=== PATIENT | female | born 1955 | race African-American/Black ===

== ENCOUNTER → 2016-08-15 15:41 | Emergency (ER) | payer OTHER ==
[~2016-08-15 15:41] MED LIST: Cephalexin CAP* 500 MG PO ONE; diPHENhydraMINE PO* 50 MG PO ONE
[2016-08-15 16:09] VITALS: BP 149/86
--- NOTE | 2016-08-15 17:57 | ED ---
Skin Complaint - HPI Summary HPI Summary: Patient suffered insect bites two nights ago while sleeping on her couch at home. She doesn't know what bit her, but she now has painful, itchy pustules on her left hand, elbow and leg. She has applied ice and hydrocortisone with minimal relief. The left hand is swollen and has increased redness. She denies fever, chills, N/V/D or streaking. She has not taken any medication. - History of Current Complaint Chief Complaint: EDRashSkinAbscess Time Seen by Provider: 08/15/16 17:37 Stated Complaint: RASH Hx Obtained From: Patient Onset/Duration: Started Days Ago - 2, Traumatic - bug bites Timing: Constant Onset Severity: Moderate Current Severity: Severe Pain Intensity: 10 Skin Location: Diffuse Aggravating Symptom(s): Touch Alleviating Symptom(s): Nothing Associated Signs & Symptoms: Tenderness Related History: Insect Bite/Sting - Allergy/Home Medications Allergies/Adverse Reactions: Allergies Allergy/AdvReac Type Severity Reaction Status Date / Time Aspirin Allergy Intermediate Bleeding Verified 08/15/16 16:05 Naproxen [From Naprosyn] Allergy Unknown Verified 08/15/16 16:05 Reaction Details PMH/Surg Hx/FS Hx/Imm Hx Endocrine/Hematology History: Reports: Hx Anemia Denies: Hx Diabetes, Hx Sickle Cell Disease Cardiovascular History: Reports: Hx Hypertension - NO MEDS Denies: Hx Congestive Heart Failure, Other Cardiovascular Problems/Disorders Respiratory History: Denies: Other Respiratory Problems/Disorders GI History: Reports: Hx Gastroesophageal Reflux Disease, Hx Ulcer, Other GI Disorders - CONSTPATION History: Reports: Hx Kidney Stones - CURRENTLY, Denies: Hx Renal Disease, Other Problems/Disorders Musculoskeletal History: Reports: Hx Arthritis - SHOULDERS, ARMS, HANDS, Hx Back Problems - pain Denies: Other Musculoskeletal History Sensory History: Denies: Hx Contacts or Glasses, Hx Hearing Aid Opthamlomology History: Denies: Hx Contacts or Glasses Neurological History: Reports: Hx Headaches, Hx Migraine Denies: Other Neuro Impairments/Disorders - Cancer History Cancer Type, Location and Year: lung - Surgical History Surgery Procedure, Year, and Place: tubal ligation, 1979, [place], RT LOBECTOMY Hx Anesthesia Reactions: No - Immunization History Date of Influenza Vaccine: Unknown Infectious Disease History: No Infectious Disease History: Denies: Traveled Outside the [place] in Last 30 Days - Family History Known Family History: Positive: None - Social History Occupation: Unemployed Lives: With Family Alcohol Use: None Substance Use Type: Reports: None Smoking Status (MU): Former Smoker Type: Cigarettes Amount Used/How Often: AT MOST Have You Smoked in the Last Year: Yes Review of Systems Positive: Edema - left hand Positive: Other - pea size pustules on left hand; quarter size erythema left lateral calf; 2cm x 2cm area of erythema right medial elbow Negative: Paresthesia, Numbness All Other Systems Reviewed And Are Negative: Yes Physical Exam Triage Information Reviewed: Yes Vital Signs On Initial Exam: Initial Vitals Temp Pulse Resp BP Pulse Ox 98.4 F 70 20 149/86 99 08/15/16 16:06 08/15/16 16:06 08/15/16 16:06 08/15/16 16:06 08/15/16 16:06 Vital Signs Reviewed: Yes Appearance: Positive: Well-Appearing, Well-Nourished, Pain Distress Skin: Positive: Warm, Skin Color Reflects Adequate Perfusion, Dry, Tender, Soft , Erythema @ - pea size pustules on left hand; quarter size erythema left lateral calf; 2cm x 2cm area of erythema right medial elbow Head/Face: Positive: Normal Head/Face Inspection Eyes: Positive: EOMI, TRINITY, Conjunctiva Clear ENT: Positive: Hearing grossly normal Respiratory/Lung Sounds: Positive: Breath Sounds Present Cardiovascular: Positive: RRR Musculoskeletal: Positive: Strength/ROM Intact, Edema Left - hand Neurological: Positive: Sensory/Motor Intact, Alert, Oriented to Person Place, Time, NV Bundle Intact Distally, Normal Gait Psychiatric: Positive: Affect/Mood Appropriate AVPU Assessment: Alert Diagnostics - Vital Signs Vital Signs Temp Pulse Resp BP Pulse Ox 08/15/16 16:06 98.4 F 70 20 149/86 99 - Laboratory Lab Statement: Any lab studies that have been ordered have been reviewed, and results considered in the medical decision making process. Course/Dx - Differential Diagnoses - Skin Complaint Differential Diagnoses: Abscess, Anaphylaxis, Angioedema, Cellulitis, Contact Dermatitis, Foreign Body, Local Allergic Reaction, MRSA, Tick Born Illness, Urticaria, Viral Exanthem, VRE - Diagnoses Provider Diagnoses: Bug bites, Cellulitis Discharge - Discharge Plan Condition: Stable Disposition: HOME Prescriptions: Cephalexin CAP* [Keflex CAP*] 500 mg PO QID #39 cap diPHENhydraMINE PO* [Benadryl PO 25 MG TAB*] 50 mg PO Q4H PRN #60 tab PRN Reason: Itching Patient Education Materials: Insect Bite or Sting (ED), Cellulitis (ED) Referrals: Subhash Monroe MD [Primary Care Provider] - Additional Instructions: Please take the antibiotics until they are completely gone. Use the benadryl as needed, and elevate you hand above your head to decrease swelling. Follow-up with your primary care provider in 2 days for re-evaluation to insure you are improving. Return to the emergency department if symptoms worsen.
== END | disposition home or self-care (01) ==
LOC: ED 15:41
DX: L03.90 Cellulitis, unspecified (principal); R21 Rash and other nonspecific skin eruption; Z87.891 Personal history of nicotine dependence; T14.8 Other injury of unspecified body region; W57.XXXA Bitten or stung by nonvenomous insect and other nonvenomous arthropods, initial encounter; Y93.9 Activity, unspecified; Y92.9 Unspecified place or not applicable; Y99.9 Unspecified external cause status
CPT/HCPCS: 87070; 87205; 99282; A9270-GY

== ENCOUNTER → 2017-02-11 12:25 | Emergency (ER) | payer OTHER ==
[2017-02-11 15:36] VITALS: BP 0/0
== END | disposition left against medical advice (07) ==
LOC: ED 12:25
DX: R10.2 Pelvic and perineal pain (principal); Z53.21 Procedure and treatment not carried out due to patient leaving prior to being seen by health care provider

== ENCOUNTER 2017-03-29 11:18 | Inpatient (IN) | payer OTHER ==
[2017-03-29 12:40] LABS: ABS Basophils 0 10^3/ul (0-0.2); ABS Eosinophils 0 10^3/ul (0-0.6); ABS Lymphocytes 1.7 10^3/ul (1.0-4.8); ABS Monocytes 0.2 10^3/ul (0-0.8); ABS Neutrophils 3.2 10^3/ul (1.5-7.7); ABS Nucleated RBC 0 10^3/ul; Eosinophil % 0.1 % (0-6); Hematocrit 34 % (35-47); Hemoglobin 11.2 g/dl (12.0-16.0); Mean Corpuscular HGB Conc 33 g/dl (31-36); Mean Corpuscular Hemoglobin 28 pg (27-31); Mean Corpuscular Volume 87 fL (80-97); Mean Platelet Volume 9 um3 (7.4-10.4); Nucleated Red Blood Cells % 0.1; Platelet Count 259 10^3/ul (150-450); Red Blood Count 3.93 10^6/ul (4.0-5.4); Red Cell Distribution Width 15 % (10.5-15); White Blood Count 5.2 10^3/ul (3.5-10.8)
[2017-03-29 12:53] LABS: EGFR Non-African American 86.5 (>60)
--- NOTE | 2017-03-29 13:06 | RAD ---
HISTORY: Chest pain COMPARISONS: December 22, 2013 VIEWS: 4: Frontal dual-energy and lateral views of the chest. FINDINGS: CARDIOMEDIASTINAL SILHOUETTE: The cardiomediastinal silhouette is stable. SEDRICK: The sedrick are normal. PLEURA: The costophrenic angles are sharp. No pleural abnormalities are noted. LUNG PARENCHYMA: The lungs are clear. ABDOMEN: The upper abdomen is clear. There is no subphrenic gas. BONES AND SOFT TISSUES: No bone or soft tissue abnormalities are noted. OTHER: None. IMPRESSION: NO ACTIVE CARDIOPULMONARY DISEASE.
[2017-03-29] MEDS ORDERED: Metoprolol Tartrate TAB* 25 MG PO ONE ×2 (13:08→14:53)
[2017-03-29] MEDS: Nitroglycerin TAB 0.4 MG* 0.4 MG TAB SL ONE ×2 (13:17→14:13)
[2017-03-29] MEDS ORDERED: Heparin DRIP 25,000 UNITS(*) 25,000 UNITS/500 ML BAG IVPB SCH (13:30)
[2017-03-29] MEDS ORDERED: NS 0.9% 500 ML* 500 ML IV ONE (13:32)
[2017-03-29] MEDS ORDERED: Iohexol 350* (CONTRAST) 500 ML MDV IV ONE (13:38)
[2017-03-29 14:00] LABS: Urine Appearance Cloudy; Urine Blood 1+ (Negative); Urine Color Yellow; Urine Ketones Trace (Negative); Urine Protein Negative (Negative); Urine Urobilinogen Negative (Negative)
[2017-03-29] MEDS ORDERED: Heparin VIAL(*) 5000 UNITS/ML VIAL (FIVE THOUSAND) IV SCH ×2 (14:00→18:00)
[2017-03-29 14:02] LABS: INR 1.06 (0.77-1.02)
--- NOTE | 2017-03-29 14:04 | RAD ---
Indication: Chest pain. Contrast: Administered 62.1 ml of OMNIPAQUE 350 mg/ml Inferior thyroid lobes are enlarged. Pulmonary arterial tree is well opacified. There are no filling defects present to suggest pulmonary embolus. The heart is enlarged without evidence of pericardial effusion. The trachea and major bronchi appear patent. The lung person demonstrate no evidence of alveolar consolidation. No mediastinal or hilar adenopathy is noted. Lung person demonstrate no pleural fluid, nodules or masses. Emphysematous changes are noted. The axilla demonstrates small lymph nodes in the axilla bilaterally. The visualized thoracic spine is otherwise unremarkable. IMPRESSION: No definite evidence of pulmonary embolus is noted. Cardiomegaly. No pericardial effusion is noted.
[2017-03-29] MEDS ORDERED: Ticagrelor* 90 MG TAB PO ONE (14:40)
[2017-03-29] MEDS ORDERED: Atorvastatin* 80 MG TAB PO ONE (14:40)
[2017-03-29] MEDS ORDERED: Aspirin Low Dose CHEW TAB* 81 MG PO ONE (14:52)
[2017-03-29] MEDS ORDERED: nitroGLYCERIN DRIP* 25,000 MCG/250 ML BTL IV SCH (15:00)
[2017-03-29] MEDS ORDERED: nitroGLYCERIN DRIP* 0 MCG/0 ML BTL ONE (15:02)
[2017-03-29] MEDS ORDERED: Ondansetron INJ* 2 MG/ML VIAL IV PRN (15:10)
[2017-03-29] MEDS ORDERED: fentaNYL* 50 MCG/ML 2 ML VIAL (100 MCG VIAL) ONE ×2 (15:21→19:48)
[2017-03-29] MEDS ORDERED: nitroGLYCERIN DRIP* 25,000 MCG/250 ML BTL ONE (15:22)
[2017-03-29] MEDS ORDERED: Lidocaine 1% INJ* 10 MG/ML 30 ML SDV ONE (15:22)
[2017-03-29] MEDS ORDERED: VERAPAMIL 2.5 MG/ML 4 ML VIAL ONE (15:22)
[2017-03-29] MEDS ORDERED: Heparin 2 UNITS/ML IVPREMIX* 3,000 ML IV ONE (15:22)
[2017-03-29] MEDS ORDERED: Heparin(*) 1000 UNIT/ML 10 ML VIAL CATH LAB IV ONE (15:22)
[2017-03-29] MEDS ORDERED: Iohexol 350 (CONTRAST) 200 ML MDV IV ONE (15:22)
[2017-03-29] MEDS ORDERED: Midazolam* 1 MG/ML 10 ML VIAL (10 MG) ONE (15:34)
[2017-03-29] MEDS ORDERED: NS 0.9% 1000 ML* 1,000 ML IV SCH (17:15)
[2017-03-29] MEDS ORDERED: HYDROcodone/ACETAMIN 5-325 MG* 1 TAB PO PRN (17:52)
[2017-03-29] MEDS ORDERED: Heparin DRIP 25,000 UNITS(*) 25,000 UNITS/500 ML BAG IV SCH (18:00)
--- NOTE | 2017-03-29 18:00 | CONSULT ---
Subjective Date of Service: 03/29/17 Interval History: 03/29/2017 date of consult and admission Service: Hospitalist/[employer] Mechanic PMD: Dr. Monroe CC: Chest pain Reason for consult: Chest pain HISTORY OF PRESENT ILLNESS: Tena Hall is a 61-year-old woman with a history of gastritis 04/2014 EGD advised not to take aspirin because of this (not an allergy), HTN does not take regular medications regularly because of constipation, migraines severe enough has caused syncope in the past, uterine fibroids, and a history of lung cancer s/p partial right lung resection. She has had intermittent chest discomfort for the last 2-3 weeks. It has been worse over the last day. She has been under a lot of stress recently regarding family discord with son and his significant other. It is right sided feels like gas/indigestion, feels similar pain to lung cancer. She doesn't walk a lot and there is no relation to exertion. No recent syncope but used to have often with migraines. Dyspnea at night recently. No edema. She was found with ACS-like syndrome and treated with appropriate treatment. She had worsening chest discomfort with dynamic EKG changes including precordial ST elevation non-diagnostic but concerning enough that an urgent coronary angiogram was recommended. Of note, there was a concern with vaginal bleeding that is intermittent. There is none currently. Dr. Dunham performed a pelvic examination and no blood was noted. PAST MEDICAL HISTORY: Significant for: 1. Hypertension. 2. Peptic ulcer disease. 3. Chronic pain. 4. Migraines. 5. Lung cancer. PAST SURGICAL HISTORY: She said she has had a partial lobectomy 2015 right lung, did not need chemotherapy or radiation. tubal ligation ALLERGIES TO MEDICATIONS: Include ASPIRIN, which causes GI upset and NAPROXEN. FAMILY HISTORY: Her mother had breast cancer. Her father had throat cancer. SOCIAL HISTORY: She was a smoker. She quit when she was diagnosed with lung cancer. She does not drink alcohol regularly. Uses marijuana recreationally.. Surrogate decision maker is her son. Medications Active Medications: Acetaminophen (Tylenol Tab*) 650 mg PO Q4H PRN PRN Reason: FEVER/PAIN Hydrocodone Bitart/Acetaminophen ([place] 5-325 Tab*) 1 tab PO TID PRN PRN Reason: PAIN Sodium Chloride (Ns 0.9% 1000 Ml*) 1,000 mls @ 100 mls/hr IV .per rate [facility] Stop: 03/29/17 23:14 Last Admin: 03/29/17 17:26 Dose: 100 mls/hr Ondansetron HCl (Zofran Inj*) 4 mg IV Q6H PRN PRN Reason: NAUSEA Pantoprazole Sodium (Protonix Tab (Nf)) 40 mg PO DAILY [facility] Home Medications: Hydrocodone-Acetaminophen [Hydrocodone/Acetaminophen 5-325 mg] 1 tab PO TID PRN 03/10/14 [History Confirmed 03/29/17] Nicotine PATCH 14 MG/24 HR* 14 mg TRANSDERM DAILY 06/03/14 [History Confirmed ] Docusate CAP* [Colace Cap*] 100 mg PO DAILY PRN 03/29/17 [History Confirmed ] Pantoprazole TAB (NF) [Protonix TAB (NF)] 40 mg PO DAILY 03/29/17 [History Confirmed 03/29/17] celeCOXIB CAP* [CeleBREX CAP*] 200 mg PO DAILY 03/29/17 [History Confirmed 03/29] hydrOXYzine HCL TAB* [Atarax 25 MG TAB*] 25 - 50 mg PO Q4HR 03/29/17 [History Confirmed 03/29/17] Review of Systems - Review of Systems Constitutional Symptoms: Positive: Weakness Negative: Weight Gain, Weight Loss Dermatology: Negative: Rash, Skin Lesions HEENT: Negative: Change in Hearing, Vertigo, Tinnitus Eyes: Negative: Change in Vision, Double Vision Thyroid: Negative: Normal, Cold Intolerance, Heat Intolerance, Palpitations, Weight Loss, Weight Gain Pulmonary: Positive: Shortness of Breath Negative: Cough, Sputum, Hemoptysis, Wheezing, Respiratory Distress, COPD, Asthma, Exercise Intolerance, Home Oxygen Cardiology: Positive: Chest Pain, Shortness of Breath Negative: Normal, Palpitations, Swelling of Ankles, Peripheral Vascular Dis, Edema, Claudication Gastroenterology: Negative: Abdominal Pain, Vomiting, Anorexia, Indigestion, Difficulty Swallowing, Heartburn, Constipation, Diarrhea, Blood in Stools, Change in Bowel Habits, Haematemesis, Melena Genital - Urinary: Negative: Dysuria, Hematuria Musculoskeletal: Negative: Joint Pain, Joint Stiffness, Arthritis, Osteoporosis, Low Back Pain , Sciatica Endocrinology: Negative: Thyroid Problems, Obesity, Diabetes, Hyperglycemia, Hypoglycemia, Polydipsia, Polyuria Hematologic/Lymphatic: Positive: Anemia Negative: Easy Brusing, Hx Leukemia, Hx Lymphoma, Use of Anticoagulant, Use of Antiplatelet Drugs Neurology: Positive: Migraines Negative: Diplopia, Dizziness, Change in Balancing, Change in Coordination, Change in Memory, Numbness\Paresthesiae, Unexplained Weakness, Hx of Stroke\TIA , Hx Seizures Psychiatry: Positive: Tearfulness, Unusual Anxiety Negative: Hypomania, Eating Disorders Allergic/Immunologic: Negative: Hx Anaphylaxis, Hx Angioedema, Hx HIV, Immunocompromise Review of Systems Statement: All other review of systems negative, unless stated above. Objective Vital Signs: Temp Pulse Resp BP Pulse Ox 97.6 F 79 20 104/79 95 03/29/17 17:12 03/29/17 17:12 03/29/17 17:12 03/29/17 17:12 03/29/17 17:12 Oxygen Devices in Use Now: None Appearance: appears mildly distressed due to pain, not toxic appearing Ears/Nose/Mouth/Throat: Clear Oropharnyx, Mucous Membranes Moist Neck: NL Appearance and Movements; NL JVP, Trachea Midline Respiratory: Symmetrical Chest Expansion and Respiratory Effort, - - no obvious rales or wheeing Cardiovascular: NL Sounds; No Murmurs; No JVD, RRR, No Edema Abdominal: NL Sounds; No Tenderness; No Distention Extremities: No Edema, No Clubbing, Cyanosis Skin: No Rash or Ulcers Neurological: Alert and Oriented x 3 Laboratory Results: INR (Anticoag Therapy) 1.06 (0.77-1.02) H 03/29/17 12:18 APTT 33.3 seconds (26.0-36.3) 03/29/17 12:18 Total Bilirubin 0.40 mg/dL (0.2-1.0) 03/29/17 12:18 AST 21 U/L (13-39) 03/29/17 12:18 ALT 8 U/L (7-52) 03/29/17 12:18 Alkaline Phosphatase 77 U/L (34-104) 03/29/17 12:18 CK-MB (CK-2) 8.7 ng/mL (0.6-6.3) H 03/29/17 12:18 B-Natriuretic Peptide 748 pg/mL (-100) H 03/29/17 12:18 Total Protein 8.5 g/dL (6.4-8.9) 03/29/17 12:18 Albumin 4.4 g/dL (3.2-5.2) 03/29/17 12:18 Globulin 4.1 g/dL (2-4) H 03/29/17 12:18 Albumin/Globulin Ratio 1.1 (1-3) 03/29/17 12:18 TSH 0.91 mcIU/mL (0.34-5.60) 03/29/17 12:18 Diagnostic Imaging: Chest, thorax CTA, impression: No definite evidence of PE noted, cardiomegaly. Coronary angiogram 03/29/2017: No obstructive CAD. Severely reduced LVEF with akinetic mid segments and apex with preservation of basal segments EKG Data: EKg 2: NSR, ST elevation < 1 mm v3-v5 with ST depression/TWI inferior leads Assessment/Plan Tena Hall is a 61 year old woman with a history of lung cancer s/p resection on right, prior tobacco use, HTN unable to tolerate medication due to constipation, migraines associated with syncope, uterine fibroids admitted with an ACS-like presentation and found with severe tako-tsubo cardiomyopathy with a severe reduced LVEF, hemodynamically stable without any arrhythmias. - Admit to ICU. [place] term prognosis of this condition is not entirely benign - Give aspirin 81 mg po daily (no true allergy) - Given heparin therapeutic gtt while inpatient to help prevent development of apical thrombus. If no vaginal bleeding after a period of time would change to therapeutic lovenox - Start metoprolol 25 mg PO QID with holding parameter SBP < 90 mmHg or pulse < 55 bpm - Start fentanyl 25 mcg IV x 1 now and then q2h PRN for severe pain (ordered) - Once tolerating above will start an AceI - Plan for echocardiogram 03/31/2017 - Should have gynecology evaluation at some point, could be as an outpatient, to exclude endometrial cancer Thank you for allowing me to participate in the cardiovascular care of this patient. Please do not hesitate to contact me with questions or concerns.
[2017-03-29] MEDS ORDERED: Potassium Chlor TAB* 20 MEQ TAB.ER PO ONE (18:07)
[2017-03-29] MEDS ORDERED: Magnesium Sulfate 2 GM IV* 2 GM/50 ML BAG IVPB ONE (18:07)
[2017-03-29] MEDS: Metoprolol Tartrate TAB* 25 MG PO SCH (18:52)
[2017-03-29 19:00] LABS: Hematocrit 33 % (35-47); Hemoglobin 10.8 g/dl (12.0-16.0)
[2017-03-29] MEDS ORDERED: fentaNYL* 50 MCG/ML 2 ML VIAL (100 MCG VIAL) IV SLOW PU ONE (19:38)
--- NOTE | 2017-03-29 21:39 | HP ---
CC: Dr. Monroe; Dr. Marquis; Dr. Erlin Ramos * HISTORY AND PHYSICAL: DATE OF ADMISSION: 03/29/17 PRIMARY CARE PROVIDER: Dr. Monroe. ATTENDING PHYSICIAN WHILE IN THE HOSPITAL: Dr. William Ramos * (report dictated by Pineda Barron NP). CONSULTING OLIVE KNOCKER: Dr. Ramos. CONSULTING BEAM DYER: Dr. Marquis. CHIEF COMPLAINT: Chest pain. HISTORY OF PRESENT ILLNESS: Mrs. Hall is a 61-year-old female patient. She has a history of hypertension, peptic ulcer disease, migraines, chronic pain and a history of lung cancer. She presented to the ED stating that over the last at least 3 weeks, she states she has been having intermittent chest discomfort and frequency and duration, which has been increasing in the last couple of days. There has been no reports of fevers, chills. No vomiting. No diarrhea. There has been no reports of abdominal discomfort. She describes the chest pain today as a pressure, squeezing, tightness. No associated nausea , shortness of breath, or diaphoresis. She states that the discomfort was coming more frequent, that was lasting longer. She was concerned and came into the ED today for this. During evaluation, it was noted that it was recorded anyway by the patient that she was having intermittent vaginal bleeding, which has been ongoing on for about at least a year. She has not told anybody about it. While in the ER and being evaluated, it was noted that her troponin was elevated. She was being evaluated by Dr. Ramos and she was continuing to have chest discomfort. Repeat EKG subsequently showed ST changes and STEMI was called. The patient was brought to the [facility]. The patient's cath report is pending, but preliminary is concerned for Takotsubo and then evaluated the patient post-cath. She states that she has been under quite a lot of duress with her family as her son and the son's significant other has been fighting and the patient has been stressed because she is not sure if she is going to be able to see her grandchild, who is a year old. When she brought this up, she became extremely tearful. There has been no reports of vaginal bleeding today. Vaginal exam was performed in the ED. There was no discharge noted. She states that the chest pain now is going away. She is feeling a little better. She denies having any abdominal pain. There has been no recent cough, fevers, chills and no recent URI type symptoms. We were asked to evaluate for admission. PAST MEDICAL HISTORY: Significant for: 1. Hypertension. 2. Peptic ulcer disease. 3. Chronic pain. 4. Migraines. 5. Lung cancer. PAST SURGICAL HISTORY: She said she has had a partial lobectomy and a tubal ligation according to the patient. MEDICATIONS: Her home meds according to the list include: 1. Atarax 20 to 50 mg every 4 hours. 2. Nicotine patch 14 mg transdermally daily. 3. Colace 100 mg daily as needed. 4. Protonix 40 mg daily. 5. Celebrex 200 mg p.o. daily. 6. Hydrocodone 1 tablet p.o. t.i.d. as needed. ALLERGIES TO MEDICATIONS: Include ASPIRIN, which causes GI upset and NAPROXEN. FAMILY HISTORY: Her mother had breast cancer. Her father had throat cancer. SOCIAL HISTORY: She was a smoker. She quit when she was diagnosed with lung cancer. She does not drink alcohol. Surrogate decision maker is her son. REVIEW OF SYSTEMS: There is no documented fever. She denied having any significant weight change. There was no double vision. She denies having any ear discharges. No rhinorrhea. No sore throat. No thyroid enlargement. There is chest pain as per my HPI. There was no orthopnea, no nocturnal dyspnea. There was no abdominal pain. No nausea, no vomiting. No dysuria, no frequency. There was no seizure, no loss of consciousness. No pruritus and no skin ulcerations. Review of 14-systems was completed, all others are negative. PHYSICAL EXAMINATION GENERAL: At this time, Mrs. Hall is a 61-year-old female patient. She is sitting in the ICU bed. She does not appear in any acute distress. VITAL SIGNS: Blood pressure 104/74, heart rate 79, respirations 20, O2 sat 95% , and temperature 97.6. HEENT: Head: Atraumatic. Eyes: EOMs intact. Sclerae anicteric and not pale. Throat: Oral mucosa appears to be moist. No oropharyngeal erythema. NECK: Supple. LUNGS: Clear to auscultation. No wheezes, rales, or rhonchi. HEART: Sounds S1, S2. Regular rate and rhythm. No murmur, rubs, or gallops. ABDOMEN: Soft, flat, and nontender. Bowel sounds present. EXTREMITIES: Pulses were 2+ throughout. Distal CSM checks are intact to the right wrist and to the right lower extremity. NEUROLOGIC: She is awake, alert and oriented x3. No gross focal deficits. SKIN: Her is intact with the exception she has a puncture site to the right wrist, which is dry and intact and also puncture site to the right groin dry and intact. DIAGNOSTIC STUDIES/LAB DATA: Labs today revealed a WBC of 5.2, RBC of 3.93, hemoglobin 11.2, hematocrit 34, platelet count of 259. INR 1.06, PTT of 33.3. Sodium was 127, potassium 3.5, chloride 103, bicarb 23, BUN 13, creatinine 0.69 , glucose 108, lactate 2, calcium 10.1, mag 1.8. Total bili 0.4, AST 21, ALT 8 , alk phos 77. CK was 133, CK-MB 8.7. Troponin 1.54. BNP is 748. TSH normal. Her albumin was 4.4. Urine showed trace ketones, 1+ blood. She had multiple imaging here in the ED starting out with a chest x-ray, impression: No active cardiopulmonary disease. Chest, thorax CTA, impression: No definite evidence of PE noted, cardiomegaly. No pericardial effusion is noted. EKG, initially her EKG shows sinus tachycardia, rate of 101. She had flattened T- waves in V4 and V5 with no ST elevation noted at that point. Her repeat EKG showed ST elevation in V4 and V5 along with inversions in V4 and V3, ST elevation was noted in V5 and V6 inversions along with inversions in lead II and III. STEMI was called at that point and taken to the [facility]. We will refer you to report from Dr. Marquis and Dr. Ramos and the cath report for details on that. Old medical records were reviewed. ASSESSMENT AND PLAN: Mrs. Hall is a 61-year-old female patient coming into the ED with complaints of chest pain. Initially, we were asked to evaluate for non-ST elevation myocardial infarction; however, it turned into possible ST elevation myocardial infarction. She was taken to the [facility] and was found to have what appeared to be Takotsubo's cardiomyopathy. She will be admitted under inpatient status for: 1. Chest pain, probably secondary to the Takotsubo's cardiomyopathy. Cardiology is following. The plan would be for heparin drip, aspirin, and beta- omar. 2. Takotsubo's cardiomyopathy. Echo is pending. Dr. Ramos is going to be following. He recommended heparin drip. I did note that she has been having issues with vaginal bleeding; however, she does have significant cardiomyopathy and she has placed at a risk for thromboembolism. So, at this point, I think heparin is safe because we would not want her to have stroke or any thromboembolism, which could be devastating. At this point, we will do heparin. If she starts having vaginal bleeding, then obviously we will hold this and reverse it. The patient is going to undergo formal echo on Saturday. We will continue with beta-omar with hold parameters and we will continue with the patient's aspirin. 3. Vaginal bleeding. Transvaginal ultrasound has been asked for and [facility] SUPPORT SPECIALIST has been consulted. We will follow the H and H closely. 4. Hypertension. We will continue again beta-omar. 5. Peptic ulcer disease. Continue current medical regimen. 6. History of migraines. P.r.n. Tylenol as available. 7. Chronic pain. We will continue her meds as prescribed. 8. History of lung cancer. We are going to get records from [facility], as she apparently had a partial lobectomy. According to the patient, we will get [facility] records. 7. DVT prophylaxis. Heparin drip. 8. Code status. She is full code. 9. Fluids, electrolytes, and nutrition. She can have a heart healthy diet. TIME SPENT: On admission 60 minutes, greater than half of the time was spent face- to-face with the patient obtaining my history and physical, other half of the time spent going over the plan of care with the patient and implementing plan of care. I did discuss the plan of care with my attending, Dr. William Ramos, who is in agreement. PINEDA BARRON, MARY [id number]/[facility] #: [id number] KARLA
[2017-03-29 21:57] LABS: Hematocrit 34 % (35-47)
[2017-03-29] MEDS: Captopril TAB* 12.5 MG PO SCH (22:00)
[2017-03-29] MEDS: fentaNYL* 50 MCG/ML 2 ML VIAL (100 MCG VIAL) IV SLOW PU PRN (22:01)
[2017-03-30] MEDS: Metoprolol Tartrate TAB* 25 MG PO SCH ×2 (00:30→06:33)
[2017-03-30] MEDS: fentaNYL* 50 MCG/ML 2 ML VIAL (100 MCG VIAL) IV SLOW PU PRN (00:31)
[2017-03-30 02:18] LABS: Hematocrit 35 % (35-47); Hemoglobin 10.9 g/dl (12.0-16.0)
[2017-03-30] MEDS: HYDROcodone/ACETAMIN 5-325 MG* 1 TAB PO PRN (03:53)
[2017-03-30 07:04] LABS: ABS Basophils 0.1 10^3/ul (0-0.2); ABS Eosinophils 0 10^3/ul (0-0.6); ABS Lymphocytes 2.5 10^3/ul (1.0-4.8); ABS Monocytes 0.4 10^3/ul (0-0.8); ABS Neutrophils 2.8 10^3/ul (1.5-7.7); ABS Nucleated RBC 0 10^3/ul; Eosinophil % 0.5 % (0-6); Hematocrit 32 % (35-47); Hemoglobin 10.6 g/dl (12.0-16.0); Lymphocyte % 42.1 % (25-47); Mean Corpuscular HGB Conc 33 g/dl (31-36); Mean Corpuscular Hemoglobin 28 pg (27-31); Mean Corpuscular Volume 87 fL (80-97); Mean Platelet Volume 9 um3 (7.4-10.4); Nucleated Red Blood Cells % 0.1; Platelet Count 238 10^3/ul (150-450); Red Blood Count 3.72 10^6/ul (4.0-5.4); Red Cell Distribution Width 15 % (10.5-15); White Blood Count 5.8 10^3/ul (3.5-10.8)
[2017-03-30 07:16] LABS: EGFR Non-African American 94.3 (>60)
[2017-03-30] MEDS: Omeprazole CAP* 20 MG PO SCH (08:54)
[2017-03-30] MEDS: Captopril TAB* 12.5 MG PO SCH (08:54)
[2017-03-30] MEDS ORDERED: Aspirin Low Dose CHEW TAB* 81 MG PO SCH (09:00)
--- NOTE | 2017-03-30 10:27 | ED ---
Vandana John Gabriel, scribed for Yamil Dunham MD on 03/29/17 at 1239 . HPI Chest Pain - HPI Summary HPI Summary: This patient is a 61 year old F BIBA to [facility] with a chief complaint of CP that she has had for several days that was worse this morning. The patient rates the pain 7/10 in severity and located on the right side. Patient reports cough, SOB, and vaginal bleeding. Patient denies rhinorrhea. Patient just recently recovered from a cold. Hx of right sided lung cancer and is a former smoker. - History of Current Complaint Chief Complaint: EDChestPainROMI Time Seen by Provider: 03/29/17 12:08 Hx Obtained From: Patient Onset/Duration: Still Present Timing: Constant Initial Severity: Mild Current Severity: Moderate Pain Intensity: 7 Pain Scale Used: 0-10 Numeric Chest Pain Radiates: No Associated Signs and Symptoms: Positive: Chest Pain, Shortness of Breath, Cough , Other: - vaginal bleeding - Allergy/Home Medications Allergies/Adverse Reactions: Allergies Allergy/AdvReac Type Severity Reaction Status Date / Time Aspirin Allergy Intermediate Bleeding Verified 08/15/16 16:05 Naproxen [From Naprosyn] Allergy Unknown Verified 08/15/16 16:05 Reaction Details Home Medications: Home Medications Docusate CAP* [Colace Cap*] 100 mg PO DAILY PRN 03/29/17 [History Confirmed ] Pantoprazole TAB (NF) [Protonix TAB (NF)] 40 mg PO DAILY 03/29/17 [History Confirmed 03/29/17] celeCOXIB CAP* [CeleBREX CAP*] 200 mg PO DAILY 03/29/17 [History Confirmed 03/29] hydrOXYzine HCL TAB* [Atarax 25 MG TAB*] 25 - 50 mg PO Q4HR 03/29/17 [History Confirmed 03/29/17] PMH/Surg Hx/FS Hx/Imm Hx Endocrine/Hematology History: Reports: Hx Anemia Denies: Hx Diabetes, Hx Sickle Cell Disease Cardiovascular History: Reports: Hx Hypertension - NO MEDS Denies: Hx Congestive Heart Failure, Other Cardiovascular Problems/Disorders Respiratory History: Reports: Hx Lung Cancer Denies: Other Respiratory Problems/Disorders GI History: Reports: Hx Gastroesophageal Reflux Disease, Hx Ulcer, Other GI Disorders - CONSTPATION History: Reports: Hx Kidney Stones - CURRENTLY, Denies: Hx Renal Disease, Other Problems/Disorders Musculoskeletal History: Reports: Hx Arthritis - SHOULDERS, ARMS, HANDS, Hx Back Problems - pain Denies: Other Musculoskeletal History Sensory History: Denies: Hx Contacts or Glasses, Hx Hearing Aid Opthamlomology History: Denies: Hx Contacts or Glasses Neurological History: Reports: Hx Headaches, Hx Migraine Denies: Other Neuro Impairments/Disorders - Cancer History Cancer Type, Location and Year: lung - Surgical History Surgery Procedure, Year, and Place: tubal ligation, 1979, [place], RT LOBECTOMY Hx Anesthesia Reactions: No - Immunization History Date of Influenza Vaccine: Unknown Infectious Disease History: No Infectious Disease History: Denies: Traveled Outside the [place] in Last 30 Days - Family History Known Family History: Negative: Renal Disease, Respiratory Disease, Seizure Disorder, Blood Disorder - Social History Alcohol Use: None Substance Use Type: Reports: None Smoking Status (MU): Former Smoker Type: Cigarettes Amount Used/How Often: AT MOST Have You Smoked in the Last Year: Yes Review of Systems Negative: Nasal Discharge Positive: Chest Pain Positive: Shortness Of Breath, Cough Positive: other - vaginal bleeding All Other Systems Reviewed And Are Negative: Yes Physical Exam - Summary Physical Exam Summary: VITAL SIGNS: Reviewed. GENERAL: Patient is an elderly female who is lying comfortable in the stretcher. Patient is not in any acute respiratory distress. HEAD AND FACE: No signs of trauma. No ecchymosis, hematomas or skull depressions. No sinus tenderness. EYES: PERRLA, EOMI x 2, No injected conjunctiva, no nystagmus. EARS: Hearing grossly intact. Ear canals and tympanic membranes are within normal limits. MOUTH: Oropharynx within normal limits. NECK: Supple, trachea is midline, no adenopathy, no JVD, no carotid bruit, no c- spine tenderness, neck with full ROM. CHEST: Symmetric, no tenderness at palpation LUNGS: some crackles in the base of the lungs CVS: Regular rate and rhythm, S1 and S2 present, no murmurs or gallops appreciated. ABDOMEN: Soft, non-tender. No signs of distention. No rebound no guarding, and no masses palpated. Bowel sounds are normal. EXTREMITIES: FROM in all major joints, no edema, no cyanosis or clubbing. NEURO: Alert and oriented x 3. No acute neurological deficits. Speech is normal and follows commands. SKIN: Dry and warm Pelvic: no remnants of any blood and no vaginal bleeding, normal external genitalia. Triage Information Reviewed: Yes Vital Signs On Initial Exam: Initial Vitals Temp Pulse Resp BP Pulse Ox 98.3 F 88 20 121/85 96 03/29/17 11:40 03/29/17 11:40 03/29/17 11:40 03/29/17 11:40 03/29/17 11:40 Vital Signs Reviewed: Yes Diagnostics - Vital Signs Vital Signs Temp Pulse Resp BP Pulse Ox 03/29/17 12:21 88 22 97 03/29/17 11:40 98.3 F 88 20 121/85 96 - Laboratory Lab Results: Lab Results 03/29/17 03/29/17 03/29/17 Range/Units 12:18 12:18 12:18 WBC 5.2 (3.5-10.8) 10^3/ul RBC 3.93 L (4.0-5.4) 10^6/ul Hgb 11.2 L (12.0-16.0) g/dl Hct 34 L (35-47) % MCV 87 (80-97) fL MCH 28 (27-31) pg MCHC 33 (31-36) g/dl RDW 15 (10.5-15) % Plt Count 259 (150-450) 10^3/ul MPV 9 (7.4-10.4) um3 Neut % (Auto) 61.9 (38-83) % Lymph % (Auto) 33.0 (25-47) % Becker % (Auto) 4.5 (1-9) % Eos % (Auto) 0.1 (0-6) % Baso % (Auto) 0.5 (0-2) % Absolute Neuts (auto) 3.2 (1.5-7.7) 10^3/ul Absolute Lymphs (auto) 1.7 (1.0-4.8) 10^3/ul Absolute Monos (auto) 0.2 (0-0.8) 10^3/ul Absolute Eos (auto) 0 (0-0.6) 10^3/ul Absolute Basos (auto) 0 (0-0.2) 10^3/ul Absolute Nucleated RBC 0 10^3/ul Nucleated RBC % 0.1 INR (Anticoag Therapy) (0.77-1.02) APTT (26.0-36.3) seconds Sodium 137 (133-145) mmol/L Potassium 3.5 (3.5-5.0) mmol/L Chloride 103 (101-111) mmol/L Carbon Dioxide 23 (22-32) mmol/L Anion Gap 11 (2-11) mmol/L BUN 13 (6-24) mg/dL Creatinine 0.69 (0.51-0.95) mg/dL Est GFR ( Amer) 111.2 (>60) Est GFR (Non-Af Amer) 86.5 (>60) BUN/Creatinine Ratio 18.8 (8-20) Glucose 108 H (70-100) mg/dL Lactic Acid (0.5-2.0) mmol/L Calcium 10.1 (8.6-10.3) mg/dL Magnesium 1.8 L (1.9-2.7) mg/dL Total Bilirubin 0.40 (0.2-1.0) mg/dL AST 21 (13-39) U/L ALT 8 (7-52) U/L Alkaline Phosphatase 77 (34-104) U/L Total Creatine Kinase 133 (10-223) U/L CK-MB (CK-2) 8.7 H (0.6-6.3) ng/mL Troponin I 1.54 H* (<0.04) ng/mL B-Natriuretic Peptide 748 H ( - 100) pg/mL Total Protein 8.5 (6.4-8.9) g/dL Albumin 4.4 (3.2-5.2) g/dL Globulin 4.1 H (2-4) g/dL Albumin/Globulin Ratio 1.1 (1-3) TSH 0.91 (0.34-5.60) mcIU/mL Urine Color Urine Appearance Urine pH (5-9) Ur Specific Rock (1.010-1.030) Urine Protein (Negative) Urine Ketones (Negative) Urine Blood (Negative) Urine Nitrate (Negative) Urine Bilirubin (Negative) Urine Urobilinogen (Negative) Ur Leukocyte Esterase (Negative) Urine WBC (Auto) (Absent) Urine RBC (Auto) (Absent) Ur Squamous Epith Cells (Absent) Urine Bacteria (Absent) Urine Glucose (Negative) 03/29/17 03/29/1718 Range/Units 12:18 12:18 13:27 WBC (3.5-10.8) 10^3/ul RBC (4.0-5.4) 10^6/ul Hgb (12.0-16.0) g/dl Hct (35-47) % MCV (80-97) fL MCH (27-31) pg MCHC (31-36) g/dl RDW (10.5-15) % Plt Count (150-450) 10^3/ul MPV (7.4-10.4) um3 Neut % (Auto) (38-83) % Lymph % (Auto) (25-47) % Becker % (Auto) (1-9) % Eos % (Auto) (0-6) % Baso % (Auto) (0-2) % Absolute Neuts (auto) (1.5-7.7) 10^3/ul Absolute Lymphs (auto) (1.0-4.8) 10^3/ul Absolute Monos (auto) (0-0.8) 10^3/ul Absolute Eos (auto) (0-0.6) 10^3/ul Absolute Basos (auto) (0-0.2) 10^3/ul Absolute Nucleated RBC 10^3/ul Nucleated RBC % INR (Anticoag Therapy) 1.06 H (0.77-1.02) APTT 33.3 (26.0-36.3) seconds Sodium (133-145) mmol/L Potassium (3.5-5.0) mmol/L Chloride (101-111) mmol/L Carbon Dioxide (22-32) mmol/L Anion Gap (2-11) mmol/L BUN (6-24) mg/dL Creatinine (0.51-0.95) mg/dL Est GFR ( Amer) (>60) Est GFR (Non-Af Amer) (>60) BUN/Creatinine Ratio (8-20) Glucose (70-100) mg/dL Lactic Acid 2.0 (0.5-2.0) mmol/L Calcium (8.6-10.3) mg/dL Magnesium (1.9-2.7) mg/dL Total Bilirubin (0.2-1.0) mg/dL AST (13-39) U/L ALT (7-52) U/L Alkaline Phosphatase (34-104) U/L Total Creatine Kinase (10-223) U/L CK-MB (CK-2) (0.6-6.3) ng/mL Troponin I (<0.04) ng/mL B-Natriuretic Peptide ( - 100) pg/mL Total Protein (6.4-8.9) g/dL Albumin (3.2-5.2) g/dL Globulin (2-4) g/dL Albumin/Globulin Ratio (1-3) TSH (0.34-5.60) mcIU/mL Urine Color Yellow Urine Appearance Cloudy Urine pH 6.0 (5-9) Ur Specific Rock 1.010 (1.010-1.030) Urine Protein Negative (Negative) Urine Ketones Trace H (Negative) Urine Blood 1+ H (Negative) Urine Nitrate Negative (Negative) Urine Bilirubin Negative (Negative) Urine Urobilinogen Negative (Negative) Ur Leukocyte Esterase Negative (Negative) Urine WBC (Auto) Absent (Absent) Urine RBC (Auto) Trace(0-2/hpf) (Absent) Ur Squamous Epith Cells Present H (Absent) Urine Bacteria Absent (Absent) Urine Glucose Negative (Negative) Result Diagrams: 03/29/17 12:18 03/29/17 12:18 Lab Statement: Any lab studies that have been ordered have been reviewed, and results considered in the medical decision making process. - Radiology CXR Radiology Interpretation Completed By: Radiologist - NO ACTIVE CARDIOPULMONARY DISEASE. ED physician has reviewed this radiology report. - CT CTA Chest/Thorax CT Interpretation Completed By: Radiologist - No definite evidence of pulmonary embolus is noted. Cardiomegaly. No pericardial effusion is noted. Dr. Dunham has reviewed this report. - EKG 11:23 Cardiac Rate: Tachycardia EKG Rhythm: Sinus Tachycardia - at 101 BPM EKG Interpretation: no ST elevations Re-Evaluation - Re-Evaluation First Eval Re-Evaluation Time: 13:33 Change: Improved Comment: Patient condition has improved Chest Pain Course/Dx - Course Assessment/Plan: This patient is a 61 year old F BIBA to [facility] with a chief complaint of CP that she has had for several days that was worse this morning. The patient rates the pain 7/10 in severity and located on the right side. Patient reports cough, SOB, and vaginal bleeding. Patient denies rhinorrhea. Patient just recently recovered from a cold. Hx of right sided lung cancer and is a former smoker. Test results show slight anemia, glucose of 108, CKMB of 8.7, BNP of 748, troponin of 1.54. UA is negative for UTI. CXR reveals, NO ACTIVE CARDIOPULMONARY DISEASE. An EKG reveals no STEMI, however the patient reports CP and therefore she was given NTH and beta omar. She reported ASA allergy and states she gets hives. Therefore I hailed the ASA. Because of the increased troponin I discussed case with Dr. Ramos, cardiology and he recommended heparin bolus and drip as well as to get a CTA of her chest. Additionally he recommends to place the patient on Lipitor 80 mg and Brilinta 180mg, if the patient doesnt have an active vaginal bleeding. I performed a vaginal exam and there was no vaginal bleeding, therefore the patient was given both medications, I discussed the case with Dr. Ramos from ICU for admission and he requested talking to hospitalist since patient is stable. I discussed with Dr. Gallo and she declines admission since the patient has vaginal bleeding. Chest CT is negative for a PE therefore it seems the increased troponin is from acute coronary syndrome. Dr. Ramos from ICU accepts the patient for admission and Dr. Ramos, cardiology came and assessed the patient. During this she began having more CP therefore we ordered another EKG that showed a slight ST elevation in v4 and v5, compared the EKG done earlier that day. Dr Ramos requesting calling a STEMI. At his point Dr. Marquis came into the ED and brought the patient to the cytology laboratory manager. At this point the patient is hemodynamically stable and alert and oriented x3. STEMI called at 15:10 - Chest Pain Differential Diagnosis/HQI/PQRI: Acute NH, ACS, Angina, CHF, Chest Wall, GI Disease, Lower Respiratory Infection, Pulmonary Edema, Pulmonary Embolism - Diagnoses Provider Diagnoses: ST elevation NH (STEMI) During the Visit The Following Alert/Code Occurred: STEMI - Provider Notifications Discussed Care Of Patient With: William Ramos Time Discussed With Above Provider: 13:13 Instructed by Provider To: Other - We discussed patient care with Dr. Ramos and they recommend starting heparin and to get a chest CT - Critical Care Time Critical Care Time: 75-104 min Discharge - Discharge Plan Condition: Fair Disposition: ADMITTED TO [facility] Consult Consult: 14:21We discussed patient care with Dr. Ramos, provider education specialist and they recommended he requests to speak with the hospitalist due his over whelming amount of patients he currently has. 14:27 We discussed patient care with Dr. Gallo and reported the patient is high risk and she cannot accept them because the a rocket engine mechanic will not stent a patient who has vaginal bleeding despite that we have REPRODUCER bleeding. 14:38 We discussed patient care with Dr. Ramos, provider education specialist and he has accepted the patient for admission. 14:47 Dr. Ramos, rocket engine mechanic is currently bedside accessing the patient. During this the patient developed CP so we ordered a second EKG. This EKG showed a slight ST elevation in V4-V5 and he called Dr. Marquis and they requested to call a STEMI alert and now the patient will be sent to cytology laboratory manager. The documentation as recorded by the Vandana matos Gabriel accurately reflects the service I personally performed and the decisions made by , Yamil Dunham MD.
--- NOTE | 2017-03-30 10:59 | PN ---
Subjective Date of Service: 03/30/17 Interval History: f/u tako-tsubo cardiomyopathy no chest pain now unless coughs cough may be worse than baseline but has every morning No arrhythmias several dropped beats overnight wenkebach physiology Medications Active Medications: Acetaminophen (Tylenol Tab*) 650 mg PO Q4H PRN PRN Reason: FEVER/PAIN Hydrocodone Bitart/Acetaminophen ([place] 5-325 Tab*) 1 tab PO TID PRN PRN Reason: PAIN SCALE 1-5 Last Admin: 03/30/17 03:53 Dose: 1 tab Aspirin (Aspirin Low Dose Tab*) 81 mg PO DAILY [facility] Last Admin: 03/30/17 09:25 Dose: 81 mg Captopril (Capoten Tab*) 6.25 mg PO TID [facility] Last Admin: 03/30/17 08:54 Dose: 6.25 mg Fentanyl Citrate (Fentanyl*) 25 mcg IV SLOW PU Q2H PRN PRN Reason: PAIN SCALE 6-10 Last Admin: 03/30/17 00:31 Dose: 25 mcg Heparin Sodium (Porcine) (Heparin Vial(*)) 0 units IV .PER PROTOCOL [facility] PRN Reason: Protocol Heparin Sodium/Dextrose (Heparin Drip 25,000 Units(*)) 25,000 units in 500 mls @ 0 mls/hr IV .NO INITIAL BOLUS [facility]; As Directed PRN Reason: Protocol Last Admin: 03/29/17 22:23 Dose: 18 mls/hr Metoprolol Tartrate (Lopressor Tab*) 25 mg PO Q6H [facility] Last Admin: 03/30/17 06:33 Dose: 25 mg Omeprazole (Prilosec Cap*) 20 mg PO DAILY [facility] Last Admin: 03/30/17 08:54 Dose: 20 mg Objective Vital Signs: Temp Pulse Resp BP Pulse Ox 100.9 F 60 16 149/74 95 03/30/17 07:42 03/30/17 10:45 03/30/17 10:45 03/30/17 10:45 03/30/17 10:45 Oxygen Devices in Use Now: None Appearance: appears mildly distressed due to pain, not toxic appearing Ears/Nose/Mouth/Throat: Clear Oropharnyx, Mucous Membranes Moist Neck: NL Appearance and Movements; NL JVP, Trachea Midline Respiratory: Symmetrical Chest Expansion and Respiratory Effort, - - no obvious rales or wheeing Cardiovascular: NL Sounds; No Murmurs; No JVD, RRR, No Edema Abdominal: NL Sounds; No Tenderness; No Distention Extremities: No Edema, No Clubbing, Cyanosis, - - right wrist c/d/i no pain, right groin c/d/i no swelling or signifcant pain Skin: No Rash or Ulcers Neurological: Alert and Oriented x 3 Laboratory Results: 03/30/17 06:47 03/30/17 06:47 INR (Anticoag Therapy) 1.06 (0.77-1.02) H 03/29/17 12:18 APTT 70.6 seconds (26.0-36.3) H 03/30/17 06:47 Total Bilirubin 0.40 mg/dL (0.2-1.0) 03/29/17 12:18 AST 21 U/L (13-39) 03/29/17 12:18 ALT 8 U/L (7-52) 03/29/17 12:18 Alkaline Phosphatase 77 U/L (34-104) 03/29/17 12:18 CK-MB (CK-2) 8.7 ng/mL (0.6-6.3) H 03/29/17 12:18 B-Natriuretic Peptide 748 pg/mL (-100) H 03/29/17 12:18 Total Protein 8.5 g/dL (6.4-8.9) 03/29/17 12:18 Albumin 4.4 g/dL (3.2-5.2) 03/29/17 12:18 Globulin 4.1 g/dL (2-4) H 03/29/17 12:18 Albumin/Globulin Ratio 1.1 (1-3) 03/29/17 12:18 TSH 0.91 mcIU/mL (0.34-5.60) 03/29/17 12:18 03/29/17 03/30/17 03/30/17 18:30 01:43 06:47 Troponin I 1.83 H* 1.18 H* 0.95 H* Diagnostic Imaging: Chest, thorax CTA, impression: No definite evidence of PE noted, cardiomegaly. Coronary angiogram 03/29/2017: No obstructive CAD. Severely reduced LVEF with akinetic mid segments and apex with preservation of basal segments EKG Data: EKg 2: NSR, ST elevation < 1 mm v3-v5 with ST depression/TWI inferior leads EKG today: NSR, precordial and inferior deep symmetric TWI, prolonged QT Assessment/Plan Tena Hall is a 61 year old woman with a history of lung cancer s/p resection on right, prior tobacco use, HTN unable to tolerate medication due to constipation, migraines associated with syncope, uterine fibroids, intermittent vaginal bleeding admitted with an ACS-like presentation and found with severe tako-tsubo cardiomyopathy with a severe reduced LVEF, hemodynamically stable without any arrhythmias. - If remains stable can transfer to telemetry tomorrow 03/31/2017 - Continue aspirin 81 mg po daily (no true allergy) - Continue heparin therapeutic gtt while inpatient to help prevent development of apical thrombus. If no vaginal bleeding after a period of time would change to therapeutic lovenox - Stop metoprolol 25 mg PO QID and start toprol 25 mg po bid (ordered) with parameter SBP < 90 mmHg or pulse < 55 bpm - Stop AceI in case contributing to cough (unlikely) and start losartan 25 mg po bid (ordered) - Continue fentanyl PRN - Plan for echocardiogram tomorrow Thank you for allowing me to participate in the cardiovascular care of this patient. Please do not hesitate to contact me with questions or concerns.
[2017-03-30] MEDS: Losartan TAB* 25 MG PO SCH ×2 (12:04→21:06)
[2017-03-30] MEDS: Metoprolol Succinate XL TAB* 25 MG PO SCH ×2 (12:04→21:06)
--- NOTE | 2017-03-30 13:58 | PN ---
Critical Care Services: Patient has done well overnight, and is up in a chair this AM and breathing comfortably. Is on a heparin drip, and there have been no abnormal bleeding episodes. Vital Signs: Temp Pulse Resp BP SpO2 FiO2 98.4 F 60 17 133/97 98 Physical Exam: Gen:As mentioned. HEENT:No JVD Lungs: Clear Cardiac: No murmurs or rubs Extremities: No cyanosis or edema. Fluid Balance (Past 24 Hours): 03/30/17 06:59 Intake Total 854 Output Total 200 Balance 654 Weight 161 lb Intake: IV Fluids 600 NS (0.9%) 600 IVPB 54 NS (0.9%) 54 Oral 200 Output: Urine 200 Labs: 03/30/17 03/30/17 03/30/17 01:43 01:43 06:47 WBC 5.8 Hgb 10.9 L 10.6 L Hct 35 32 L Plt Count 238 Troponin I 1.18 H* 03/30/17 03/30/17 06:47 06:47 APTT 70.6 H Sodium 135 Potassium 3.8 Chloride 106 Carbon Dioxide 20 L Anion Gap 9 BUN 13 Creatinine 0.64 Glucose 81 Calcium 9.2 Troponin I 0.95 H* Studies: None today Nutrition: Oral diet Impression: Clinically stable. Plan: Switch from unfractionated heparin to [id number] heparin (to prevent apical thrombus). Has been started on beta-omar Rx.
[2017-03-30] MEDS: Enoxaparin(*) 80 MG/0.8 ML SYR SUBCUT SCH (15:36)
--- NOTE | 2017-03-31 01:18 | CATH ---
CC: Erlin Ramos DO CATH REPORT: DATE OF PROCEDURE: 03/29/17 PROCEDURES: 1. Right radial artery access, abandoned due to inadequate torque control. 2. Right common femoral artery access, bilateral selective coronary cineangiography. 3. Left heart catheterization. 4. Left ventriculography. HISTORY: A 61-year-old woman presenting with chest pain, precordial ST elevation, undergoing emergen t catheterization for suspected ST elevation infarct. PROCEDURE ACCESS: Right radial artery, sheath 6F slender with ultrasound guidance. The ascending aor ta was reached with some difficulty because of extensive right subclavian artery tortuosity, there wa s absolutely no torque control of the TIG catheter once it was in the ascending aorta. Radial approa ch was therefore abandoned, the right radial artery was treated with a hemostatic band. Right common femoral artery access. Sheath 6F. MEDICATIONS: 1. Subcu lidocaine. 2. IV Versed. 3. IV fentanyl. 4. Radial artery cocktail: Verapamil 3 mg, nitroglycerin 300 mcg, 200 mcg intraarterial nitroglycer in for radial artery spasm. DIAGNOSTIC CATHETERS: 5F TIG4, 6FL 3.5, 6FR4, 6F pigtail. HEMODYNAMICS: Initial BP 128/72, LV 119/13-25, no aortic valve gradient on pullback. ANGIOGRAPHY: Right common femoral artery: Sheath entry is in segment 2. There is no stenosis. Left main: The left main has very minimal distal taper, no significant stenosis. LAD: The LAD has moderate proximal calcification, it extends to the apex, it has somewhat slow flow, it supplies a moderate diagonal, the LAD has some scattered luminal irregularity, but no significant stenosis. Circumflex: The circumflex is moderate, retroflexed, with a large first marginal, ends with a small right posterolateral, the circumflex has luminal irregularity, but no significant stenosis. RCA: The RCA is large, dominant with a moderate PDA followed by a smaller posterolateral, the RCA nunez s no significant stenosis. LV gram: There is preserved contraction of the anterior and inferior base. The remainder of the kimberly tricle is akinetic with very localized apical hypokinesis. Estimated LVEF 25%. Angiographic appearan ce consistent with Takotsubo cardiomyopathy. CONCLUSION: 1. No obstructive coronary artery disease. 2. Normal left-sided hemodynamics aside from elevated LVDP. 3. Severe LV systolic dysfunction consistent with Takotsubo cardiomyopathy. 4. Successful right radial artery access abandoned because of the absent torque control. 5. Successful right common femoral artery access with Angio-Seal closure. [id number]/[facility] #: [id number]
[2017-03-31] MEDS: Enoxaparin(*) 80 MG/0.8 ML SYR SUBCUT SCH ×2 (02:08→13:52)
[2017-03-31 05:17] LABS: Hematocrit 31 % (35-47); Hemoglobin 10.1 g/dl (12.0-16.0); Mean Corpuscular HGB Conc 32 g/dl (31-36); Mean Corpuscular Hemoglobin 28 pg (27-31); Mean Corpuscular Volume 88 fL (80-97); Mean Platelet Volume 9 um3 (7.4-10.4); Platelet Count 203 10^3/ul (150-450); Red Blood Count 3.57 10^6/ul (4.0-5.4); Red Cell Distribution Width 15 % (10.5-15); White Blood Count 4.6 10^3/ul (3.5-10.8)
[2017-03-31] MEDS: Omeprazole CAP* 20 MG PO SCH (08:52)
[2017-03-31] MEDS: Metoprolol Succinate XL TAB* 25 MG PO SCH ×2 (08:53→21:09)
[2017-03-31] MEDS: Losartan TAB* 25 MG PO SCH ×2 (08:53→21:09)
[2017-03-31] MEDS: Acetaminophen TAB* 325 MG PO PRN (10:01)
--- NOTE | 2017-03-31 10:20 | PN ---
Critical Care Services: Another uneventful evening - this AM is upin a chair eating breakfast - complains dull right parasternal pain (nonpleuritic) withut SOB. Is on LMW heparin to prevent apical thrombi. Vital Signs: Temp Pulse Resp BP SpO2 FiO2 99.8 F 62 20 114/61 100 Physical Exam: Gen:Alert, oriented, appears comfortable Lungs:Chest wall nontender. Lungs clear. No rubs. Cardiac: Reg rhythm Extremities:No cyanosis or edema Fluid Balance (Past 24 Hours): 03/31/17 06:59 Intake Total 703 Output Total 300 Balance +403 Weight 161 lb Intake: IV Fluids 133 Heparin 133 NS (0.9%) IVPB NS (0.9%) Oral 570 Output: Urine 300 Other: # Voids 1 Labs: 03/31/17 04:46 WBC 4.6 RBC 3.57 L Hgb 10.1 L Hct 31 L MCV 88 MCH 28 MCHC 32 RDW 15 Plt Count 203 MPV 9 Studies: Repeat cardiac ECHO today - results pending. (Last EF was 25%) Nutrition: Oral diet Impression: Clinically stable. No evidence of CHF clinically. Chest pain this AM seems nonspecific. Plan: Continue LMWH heparin for now (should be d/cd prior to discharge). Transfer out of ICU today. Further management per cardiology service.
--- NOTE | 2017-03-31 10:23 | ECHO ---
Patient: ALIRIO CONWAY [facility] Rec#: [id number] : 1955 Date: 03/31/2017 Age: 61y Height: 157.48 cm / 62.0 in Weight: 65.77 kg / 145.0 lbs Sex: F BSA: 1.67 Admit Date#: 03/29/2017 Referring: rElin Ramos DO Reading: Erlin Ramos DO Dry Dip Worker: Cherelle Garza RDCS CC: Subhash Monroe MD Transthoracic Echocardiogram Findings History: CP,migraines,HTN,lung cancer s/p partial lobestomy on the right, former smoker, Takotsubo on recent cath. Technical Comments: The study is technically limited due to the patient's smoking history. Completed at 0921. Left Ventricle: The left ventricular chamber size is normal. Mild concentric left ventricular hypertrophy is observed. There is mild to moderately decreased left ventricular systolic function. at 40%. There is high normal function of the basal segments, mild hypokinesis of mid segments and moderate hypokinesis of apical segments and apex Abnormal left ventricular diastolic function is observed. Left Atrium: The left atrium is mild to moderately dilated. , more consistent with moderately dilated. Right Ventricle: The right ventricular cavity size is normal. The right ventricular global systolic function is mildly reduced. Right Atrium: The right atrial cavity size is normal. Aortic Valve: The aortic valve structure is not well visualized. There is a trace of aortic regurgitation. There is no evidence of aortic stenosis.by doppler evaluation Mitral Valve: The mitral valve leaflets are mildly thickened. There is mild mitral regurgitation. There is no evidence of mitral stenosis. Tricuspid Valve: The tricuspid valve leaflets are normal. There is mild to moderate tricuspid regurgitation. There is evidence of mild pulmonary hypertension. There is no tricuspid stenosis. Pulmonic Valve: The pulmonic valve appears normal. There is a trace pulmonic regurgitation. There is no pulmonic stenosis. Pericardium: There is no significant pericardial effusion. Aorta: There is no dilatation of the ascending aorta. There is no dilatation of the aortic arch. There is mild dilatation of the aortic root. Pulmonary Artery: The main pulmonary artery is not well visualized. Venous: The inferior vena cava appears normal in size. There is a greater than 50% respiratory change in the inferior vena cava dimension. Conclusions The left ventricular chamber size is normal. Mild concentric left ventricular hypertrophy is observed. There is mild to moderately decreased left ventricular systolic function at 40%. There is high normal function of the basal segments, mild hypokinesis of mid segments and moderate hypokinesis of apical segments and apex. There is no hemodynamically signficant LVOT gradient or mitral regurgitation. The left atrium is mild to moderately, more consistent with moderately dilated The right ventricular cavity size is normal. The right ventricular global systolic function is mildly reduced. There is mild to moderate tricuspid regurgitation. There is evidence of mild pulmonary hypertension. Compared to prior study from 07/2013, most significant change is that LV dysfunction is now present. Measurements Name Value Normal Range RVIDd (AP) 2D 2.6 cm (0.9 - 2.6) RVDdMajor (2D) 2.1 cm (2.2 - 4.4) RAd ISD 4CH 4.7 cm (3.4 - 4.9) RA (A4C)W 4.1 cm (2.9 - 4.6) IVSd (2D) 1.1 cm (0.6 - 1) LVPWd (2D) 1.1 cm (0.6 - 1) LVIDd (2D) 4.1 cm (3.6 - 5.4) LVIDs (2D) 2.5 cm - LV FS (2D) 39 % (25 - 45) Aortic Annulus 1.9 cm (1.4 - 2.6) Ao root diameter (2D) 3.7 cm (2.1 - 3.5) Ascending Ao 3 cm (2.1 - 3.4) Aortic arch 3.1 cm (1.8 - 3.4) Descending Ao 0.4 cm - LAd ISD 4CH 5.6 cm (2.9 - 5.3) LA ISD 4CH W 4.6 cm (2.5 - 4.5) Name Value Normal Range LA ESV SP 4CH (A/L) 62 ml - LA ESV SP 2CH (A/L) 84 ml - LA ESV BP (A/L) 74 ml - LA ESV BP (A/L) index 44.6 ml/m2 - LA ESV SP 4CH (MOD) 62 ml - LA ESV SP 2CH (MOD) 78 ml - Name Value Normal Range MV E-wave Vmax 0.8 m/sec - MV deceleration time 240 msec - MV A-wave Vmax 0.8 m/sec - MV E:A ratio 1.03 ratio - LV septal e' Vmax 0.05 m/sec - LV lateral e' Vmax 0.06 m/sec - LV E:e' septal ratio 16 ratio - LV E:e' lateral ratio 13.33 ratio - Name Value Normal Range AV Vmax 1.4 m/sec - AV VTI 28.4 cm - AV peak gradient 8.01 mmHg - AV mean gradient 4.11 mmHg - LVOT Vmax 0.9 m/sec - LVOT VTI 16.9 cm - LVOT peak gradient 3.2 mmHg - LVOT mean gradient 1.4 mmHg - Name Value Normal Range MR Vmax 3.5 m/sec - MR VTI 136 cm - Name Value Normal Range TR Vmax 3 m/sec - TR peak gradient 36 mmHg - RAP 3 mmHg - RVSP 39 mmHg - IVC diameter 1.1 cm - Name Value Normal Range PV Vmax 0.7 m/sec - PV peak gradient 2.1 mmHg -
[2017-03-31] MEDS ORDERED: Influenza VAC *QUAD* 2017-18* 0.5 ML SYRINGE IM ONE (11:00)
--- NOTE | 2017-03-31 11:12 | PN ---
Subjective Interval History: f/u tako-tsubo cardiomyopathy Mild transient chest discomfort this AM, none currently No arrhythmias on telemetry EKG this AM deepening of precordial and inferior TW inversions LVEF on echo this AM recovered to 40% (refer to report for details) Medications Active Medications: Acetaminophen (Tylenol Tab*) 650 mg PO Q4H PRN PRN Reason: FEVER/PAIN Last Admin: 03/31/17 10:01 Dose: 650 mg Hydrocodone Bitart/Acetaminophen ([place] 5-325 Tab*) 1 tab PO TID PRN PRN Reason: PAIN SCALE 1-5 Last Admin: 03/30/17 03:53 Dose: 1 tab Enoxaparin Sodium (Lovenox(*)) 70 mg SUBCUT Q12H [facility] Last Admin: 03/31/17 02:08 Dose: 70 mg Fentanyl Citrate (Fentanyl*) 25 mcg IV SLOW PU Q2H PRN PRN Reason: PAIN SCALE 6-10 Last Admin: 03/30/17 00:31 Dose: 25 mcg Losartan Potassium (Cozaar Tab*) 25 mg PO BID [facility] Last Admin: 03/31/17 08:53 Dose: 25 mg Metoprolol Succinate (Toprol Xl Tab*) 25 mg PO BID [facility] Last Admin: 03/31/17 08:53 Dose: 25 mg Omeprazole (Prilosec Cap*) 20 mg PO DAILY [facility] Last Admin: 03/31/17 08:52 Dose: 20 mg Objective Vital Signs: Temp Pulse Resp BP Pulse Ox 99.8 F 62 20 114/61 100 03/31/17 07:19 03/31/17 09:32 03/31/17 09:32 03/31/17 09:32 03/31/17 09:32 Oxygen Devices in Use Now: None Appearance: appears mildly distressed due to pain, not toxic appearing Ears/Nose/Mouth/Throat: Clear Oropharnyx, Mucous Membranes Moist Neck: NL Appearance and Movements; NL JVP, Trachea Midline Respiratory: Symmetrical Chest Expansion and Respiratory Effort, - - no obvious rales or wheeing Cardiovascular: NL Sounds; No Murmurs; No JVD, RRR, No Edema Abdominal: NL Sounds; No Tenderness; No Distention Extremities: No Edema, No Clubbing, Cyanosis, - Skin: No Rash or Ulcers Neurological: Alert and Oriented x 3 Laboratory Results: 03/31/17 04:46 03/30/17 06:47 INR (Anticoag Therapy) 1.06 (0.77-1.02) H 03/29/17 12:18 APTT 70.6 seconds (26.0-36.3) H 03/30/17 06:47 Total Bilirubin 0.40 mg/dL (0.2-1.0) 03/29/17 12:18 AST 21 U/L (13-39) 03/29/17 12:18 ALT 8 U/L (7-52) 03/29/17 12:18 Alkaline Phosphatase 77 U/L (34-104) 03/29/17 12:18 CK-MB (CK-2) 8.7 ng/mL (0.6-6.3) H 03/29/17 12:18 B-Natriuretic Peptide 748 pg/mL (-100) H 03/29/17 12:18 Total Protein 8.5 g/dL (6.4-8.9) 03/29/17 12:18 Albumin 4.4 g/dL (3.2-5.2) 03/29/17 12:18 Globulin 4.1 g/dL (2-4) H 03/29/17 12:18 Albumin/Globulin Ratio 1.1 (1-3) 03/29/17 12:18 TSH 0.91 mcIU/mL (0.34-5.60) 03/29/17 12:18 03/29/17 03/30/17 03/30/17 18:30 01:43 06:47 Troponin I 1.83 H* 1.18 H* 0.95 H* Diagnostic Imaging: Chest, thorax CTA, impression: No definite evidence of PE noted, cardiomegaly. Coronary angiogram 03/29/2017: No obstructive CAD. Severely reduced LVEF 25% with akinetic mid segments and apex with preservation of basal segments EKG Data: EKg 2: NSR, ST elevation < 1 mm v3-v5 with ST depression/TWI inferior leads EKG 03/30/2017: NSR, precordial and inferior deep symmetric TWI, prolonged QT EKG 03/31/2017: NSR, deepening precordial and inferior TWI, prolonged QT Assessment/Plan Tena Hall is a 61 year old woman with a history of lung cancer s/p resection on right, prior tobacco use, HTN unable to tolerate medication due to constipation, migraines associated with syncope, uterine fibroids, intermittent vaginal bleeding admitted with an ACS-like presentation and found with severe tako-tsubo cardiomyopathy with a severe reduced LVEF 25% which has recovered to 40% with time and medical therapy - Ok to transfer to telemetry - Continue lovenox therapeutic while inpatient. At discharge would d/c lovenox and restart aspirin (no true allergy). Will then d/c aspirin as an outpatient after LVEF fully recovers (anticipated) - Continue toprol 25 mg po bid - Continue losartan 25 mg po bid - If remains without recurrent angina could discharge late tomorrow (04/01) if otherwise remains clinically stable - Will arrange cardiology follow up as an outpatient Thank you for allowing me to participate in the cardiovascular care of this patient. Please do not hesitate to contact me with questions or concerns.
--- NOTE | 2017-03-31 19:06 | RAD ---
INDICATION: Dysfunctional uterine bleeding COMPARISON: March 11, 2014 TECHNIQUE: Longitudinal and transverse transvaginal scans of the pelvis were obtained. FINDINGS: Uterus: The uterus is normal in size. Is a right posterior fundal fibroid measuring 1.6 x 1.4 x 1.9 cm, unchanged. The uterus measures 5.5 x 2.6 x 3.8 cm. Endometrial thickness: The endometrial thickness is measured at 0.2 cm. . Free fluid: There is no significant free fluid . Ovaries: The ovaries are normal in size. The right ovary measures 2.9 x 1.7 x 1.2 cm. The left ovary measures 2.2 x 1.4 x 1.0 cm. There is a cystic structure in the right adnexa which appears inferior to the right ovary measuring 3.9 x 3.1 x 2.0 cm. This may represent expected cyst or a paraovarian cyst. Doppler interrogation demonstrates flow to each ovary. Other: None IMPRESSION: CYSTIC STRUCTURE RIGHT ADNEXA MEASURING 3.9 CM AND WHICH REPRESENT A PARAOVARIAN CYST OR EXOPHYTIC CYST. SUGGEST FOLLOW-UP IN 2-3 MENSTRUAL CYCLES.
[2017-04-01] MEDS: Enoxaparin(*) 80 MG/0.8 ML SYR SUBCUT SCH ×2 (02:11→17:20)
[2017-04-01] MEDS: Omeprazole CAP* 20 MG PO SCH (07:44)
[2017-04-01] MEDS: Losartan TAB* 25 MG PO SCH ×2 (07:44→20:58)
[2017-04-01] MEDS: Acetaminophen TAB* 325 MG PO PRN (07:44)
[2017-04-01] MEDS: Metoprolol Succinate XL TAB* 25 MG PO SCH (07:45)
--- NOTE | 2017-04-01 15:52 | PN ---
Subjective Date of Service: 04/01/17 Interval History: Patient seen and examined at bedside. Denies fever, chills, shortness of breath , N/V/D. Pt states that she had a short episode of chest discomfort, that spontaneously resolved prior to my arrival this afternoon. Pt also reports a headache and dizziness this AM that has since resolved. Tele: Sinus rhythm, rate 50-60's. PVCs and bigeminy. Family History: Unchanged from Admission Social History: Unchanged from Admission Past Medical History: Unchanged from Admission Objective Active Medications: Acetaminophen (Tylenol Tab*) 650 mg PO Q4H PRN Reason: FEVER/PAIN Hydrocodone Bitart/Acetaminophen ([place] 5-325 Tab*) 1 tab PO TID PRN Reason: PAIN SCALE 1-5 Enoxaparin Sodium (Lovenox(*)) 70 mg SUBCUT Q12H [facility] Fentanyl Citrate (Fentanyl*) 25 mcg IV SLOW PU Q2H PRN Reason: PAIN SCALE 6-10 Losartan Potassium (Cozaar Tab*) 25 mg PO BID [facility] Metoprolol Succinate (Toprol Xl Tab*) 25 mg PO BID [facility] Omeprazole (Prilosec Cap*) 20 mg PO DAILY [facility] Vital Signs - 8 hr 04/01/17 04/01/17 04/01/17 08:00 11:08 14:04 Temperature 98.6 F Pulse Rate 51 66 Respiratory 18 16 Rate Blood Pressure 95/51 99/58 (mmHg) O2 Sat by Pulse 98 Oximetry Oxygen Devices in Use Now: None Appearance: NAD, laying in bed Respiratory: Symmetrical Chest Expansion and Respiratory Effort, Clear to Auscultation Cardiovascular: RRR Abdominal: NL Sounds; No Tenderness; No Distention Extremities: No Edema Skin: No Rash or Ulcers Neurological: Alert and Oriented x 3, NL Muscle Strength and Tone Lines/Tubes/Other Access: Clean, Dry and Intact Peripheral IV - site benign Nutrition: Taking PO's Result Diagrams: 03/31/17 04:46 03/30/17 06:47 Additional Lab and Data: Microbiology and Other Data: Microbiology 03/29/17 21:49 Influenza Types A,B Antigen (PIERRE) - Final Nasal Specimen received for Influenza A/B Molecular testing 03/29/17 17:00 Nasal Screen MRSA (PCR)(PIERRE) - Final Nasal Mrsa Negative Assess/Plan/Problems-Billing Assessment: Ms. Hall is a 61 yo female with PMH significant for HTN, PUD, chronic pain, migraines and lung cancer who presented to the emergency room with complaints of - Patient Problems (1) Takotsubo cardiomyopathy Code(s): I51.81 - TAKOTSUBO SYNDROME SNOMED Code(s): 158272758 Comment: - EF improving, now 40% up from ~ 20-25% - Continue toprol (decrease to 25 daily d/y hypotension and bradycardia) and losartan - Follow-up with cardiology outpatient (2) HTN (hypertension) Code(s): I10 - ESSENTIAL (PRIMARY) HYPERTENSION SNOMED Code(s): 93487646 Comment: - SBP 80-120's - Continue Toprolol and losartan (3) History of lung cancer Code(s): Z85.118 - PERSONAL HISTORY OF MALIGNANT NEOPLASM OF BRONCHUS AND LUNG SNOMED Code(s): 448004646 Comment: - S/P rescetion on the right (4) Vaginal bleeding Code(s): N93.9 - ABNORMAL UTERINE AND VAGINAL BLEEDING, UNSPECIFIED SNOMED Code(s): 547600559 Comment: - ARCHITECT NAVAL consult, input appreciated - Transvaginal US without significant findings - Follow-up with ARCHITECT [employer]AL outpatient (5) DVT prophylaxis Code(s): WEN7809 - SNOMED Code(s): 301492418 Comment: - Lovenox, change to ASA on discharge (6) Full code status Code(s): Z78.9 - OTHER SPECIFIED HEALTH STATUS SNOMED Code(s): 425302567 Status and Disposition: Inpatient. Discharge to home when medically stable, possibly in the AM.
[2017-04-01] MEDS: HYDROcodone/ACETAMIN 5-325 MG* 1 TAB PO PRN (17:21)
[2017-04-02] MEDS: Enoxaparin(*) 80 MG/0.8 ML SYR SUBCUT SCH (02:20)
[2017-04-02] MEDS: HYDROcodone/ACETAMIN 5-325 MG* 1 TAB PO PRN (08:25)
[2017-04-02] MEDS: Losartan TAB* 25 MG PO SCH (08:26)
[2017-04-02] MEDS: Omeprazole CAP* 20 MG PO SCH (08:26)
[2017-04-02] MEDS ORDERED: Metoprolol Succinate XL TAB* 25 MG PO SCH (09:00)
[2017-04-02 11:57] VITALS: BP 113/61
--- NOTE | 2017-04-02 13:22 | PN ---
Subjective Date of Service: 04/02/17 Interval History: Patient seen and examined at bedside. Denies fever, chills, shortness of breath , chest discomfort (does report mild discomfort with cough), N/V/D. Pt continues to report intermittent dizziness and discomfort in her right groin. Tele: Sinus maury to sinus rhythm, rate 50-70's Family History: Unchanged from Admission Social History: Unchanged from Admission Past Medical History: Unchanged from Admission Objective Active Medications: Acetaminophen (Tylenol Tab*) 650 mg PO Q4H PRN Reason: FEVER/PAIN Hydrocodone Bitart/Acetaminophen ([place] 5-325 Tab*) 1 tab PO TID PRN Reason: PAIN SCALE 1-5 Enoxaparin Sodium (Lovenox(*)) 70 mg SUBCUT Q12H [facility] Fentanyl Citrate (Fentanyl*) 25 mcg IV SLOW PU Q2H PRN Reason: PAIN SCALE 6-10 Losartan Potassium (Cozaar Tab*) 25 mg PO BID [facility] Metoprolol Succinate (Toprol Xl Tab*) 25 mg PO DAILY [facility] Omeprazole (Prilosec Cap*) 20 mg PO DAILY [facility] Vital Signs - 8 hr 04/02/17 04/02/17 04/02/17 07:56 08:00 08:25 Temperature 98.7 F Pulse Rate 57 Respiratory 26 24 20 Rate Blood Pressure 107/55 (mmHg) O2 Sat by Pulse 100 Oximetry 04/02/17 04/02/17 11:06 11:17 Temperature 97.5 F Pulse Rate 54 Respiratory 18 18 Rate Blood Pressure 113/61 (mmHg) O2 Sat by Pulse 99 Oximetry Oxygen Devices in Use Now: None Appearance: NAD, laying in bed Ears/Nose/Mouth/Throat: Mucous Membranes Moist Respiratory: Symmetrical Chest Expansion and Respiratory Effort, Clear to Auscultation Cardiovascular: NL Sounds; No Murmurs; No JVD, RRR Abdominal: NL Sounds; No Tenderness; No Distention Extremities: No Edema Skin: No Rash or Ulcers Neurological: Alert and Oriented x 3, NL Muscle Strength and Tone Lines/Tubes/Other Access: Clean, Dry and Intact Peripheral IV - site benign Nutrition: Taking PO's Result Diagrams: 03/31/17 04:46 03/30/17 06:47 Additional Lab and Data: Microbiology and Other Data: Microbiology 03/29/17 21:49 Influenza Types A,B Antigen (PIERRE) - Final Nasal Specimen received for Influenza A/B Molecular testing 03/29/17 17:00 Nasal Screen MRSA (PCR)(PIERRE) - Final Nasal Mrsa Negative Assess/Plan/Problems-Billing Assessment: Ms. Hall is a 61 yo female with PMH significant for HTN, PUD, chronic pain, migraines and lung cancer who presented to the emergency room with complaints of - Patient Problems (1) Takotsubo cardiomyopathy Code(s): I51.81 - TAKOTSUBO SYNDROME SNOMED Code(s): 812835074 Comment: - EF improving, now 40% up from ~ 20-25% - Continue toprol (decrease to 25 daily d/y hypotension and bradycardia) and losartan (decrease to daily) - Follow-up with cardiology outpatient (2) HTN (hypertension) Code(s): I10 - ESSENTIAL (PRIMARY) HYPERTENSION SNOMED Code(s): 80178053 Comment: - SBP 90-110's - Continue Toprolol and losartan (3) History of lung cancer Code(s): Z85.118 - PERSONAL HISTORY OF MALIGNANT NEOPLASM OF BRONCHUS AND LUNG SNOMED Code(s): 585659204 Comment: - S/P rescetion on the right (4) Vaginal bleeding Code(s): N93.9 - ABNORMAL UTERINE AND VAGINAL BLEEDING, UNSPECIFIED SNOMED Code(s): 401134664 Comment: - ADULT EDUCATION TEACHER consult, input appreciated - Transvaginal US without significant findings - Follow-up with ADULT EDUCATION TEACHER outpatient (5) DVT prophylaxis Code(s): XEI7375 - SNOMED Code(s): 759274221 Comment: - Lovenox, change to ASA on discharge (6) Full code status Code(s): Z78.9 - OTHER SPECIFIED HEALTH STATUS SNOMED Code(s): 405544897 Status and Disposition: Inpatient. Stable for discharge to home today
--- NOTE | 2017-04-03 05:29 | DS ---
CC: Dr. Subhash Monroe; Dr. Iker Marquis; Dr. Erlin Ramos; Dr. Jean Tong * DISCHARGE SUMMARY: DATE OF ADMISSION: 03/29/17 DATE OF DISCHARGE: 04/02/17 ATTENDING PHYSICIAN: Dr. Qing De Leon * (dictated by Balwinder Gonzáles NP). PRIMARY DIAGNOSES: 1. Takotsubo cardiomyopathy. 2. Vaginal bleeding. SECONDARY DIAGNOSES: 1. Hypertension. 2. History of lung cancer. CONSULTATIONS WHILE IN THE HOSPITAL: 1. Dr. Gaby Griffiths with [facility] OPER[facility]. 2. Dr. Erlin Ramos with Cardiology. 3. Dr. Iker Marquis with Interventional Cardiology. PROCEDURES WHILE IN THE HOSPITAL: Status post cardiac catheterization on . No obstructive coronary artery disease found, normal left-sided hemodynamics aside from elevated LVDP. Severe left ventricular systolic dysfunction consistent with takotsubo cardiomyopathy. Successful right radial artery access abandoned because of the absent torque control, successful right common femoral artery access via Angio-Seal closure, estimated LVEF 25%. STUDIES WHILE IN THE HOSPITAL: 1. Chest x-ray on 03/29/17. Radiologist's impression: No active cardiopulmonary disease. 2. Chest thoracic CTA on 03/29/17. Radiologist's impression: No definitive evidence of pulmonary embolus is noted. Cardiomegaly. No pericardial effusion is noted. 3. Transthoracic echocardiogram on 03/31/17. Supply Chain Assistant's conclusion: The left ventricular chamber size is normal. Mild concentric left ventricular hypertrophy is observed. There is mild to moderately decreased left ventricular systolic function at 40%. There is high normal function at the basal segments, mild hypokinesis of mid segments and moderate hypokinesis of apical segments and apex. There is no hemodynamically significant LVOT gradient or mitral regurgitation. The left atrium is mild to moderately, more consistent with moderately dilated. The right ventricular cavity size is normal. The right ventricular global systolic function is mildly reduced. There is [id number] tricuspid regurgitation, evidence of mild pulmonary hypertension. Compared to prior study from 07/21/13, most significant changes that LV dysfunction is now present. 4. Transvaginal ultrasound on 03/31/17. Radiologist's impression: Cystic structure right adnexa measuring 3.9 cm and which represent a paraovarian cyst or exophoric cyst. Suggest followup in 2 to 3 menstrual cycles. DISCHARGE MEDICATIONS: New home medications: 1. Losartan 25 mg oral daily. 2. Metoprolol succinate 25 mg oral daily. 3. Aspirin 81 mg oral daily. Continued home medications: 1. Hydrocodone/acetaminophen 1 tablet oral 3 times daily as needed for pain. 2. Nicotine patch 14 mg transdermal daily. 3. Hydroxyzine 25 to 50 mg oral every 4 hours as needed for anxiety. 4. Colace 100 mg oral daily as needed for constipation. 5. Protonix 40 mg oral daily. 6. Celebrex 200 mg oral daily. HISTORY OF PRESENT ILLNESS/HOSPITAL COURSE: Ms. Hall is a 61-year-old female with past medical history significant for hypertension, peptic ulcer disease, migraines, chronic pain and lung cancer, who presented to the emergency room, stating that over the last 3 weeks she had been having intermittent chest discomfort, which the frequency and duration had been increasing over several days. She denied any fever, chills, vomiting, diarrhea, or abdominal discomfort. She described the chest discomfort as squeezing and tightness. She had no associated shortness of breath, diaphoresis, or nausea. Due to her concern, she presented to the emergency room. While in the emergency room, the patient also stated that she had been having intermittent vaginal bleeding, which had been going on for approximately a year that she had not reported to her primary care provider. While in the ER, she was noted to have an elevated troponin. She was seen in consultation by Dr. Ramos with Cardiology. She had an EKG showing ST changes and STEMI was called. The patient was taken to the lab[facility] on 03/29/[address] Marquis and was felt to have takotsubo cardiomyopathy. The patient also underwent a vaginal exam in the ER and there was no significant findings found. While in the hospital, the patient's EF recovered from 25% up to 40% to 45%. She was started on aspirin, metoprolol succinate, and losartan. She was seen in consultation by Dr. Griffiths with H[facility] OPER[facility] due to her vaginal bleeding and was recommended that she followup if there were no significant findings found on her transvaginal ultrasound. The patient was able to ambulate in the hallways without discomfort, although she did intermittently continue to report mild chest discomfort. She also reported a headache. She does have a history of migraines in the past. During her stay, she was also noted to be hypotensive and bradycardic. Her metoprolol succinate was decreased. Ms. Hall is stable for discharge to home today. Vital signs are as follows: Temperature 97.5, heart rate 54, respiratory rate 18, O2 sat 99% on room air, blood pressure 113/61. DISCHARGE PLAN: Ms. Hall will be discharged to home. Activity as tolerated. She should be on a heart healthy diet. As far as her takotsubo cardiomyopathy, she has been started on aspirin as she does not have a true aspirin allergy. She was placed on losartan 25 mg oral daily in addition to metoprolol succinate 25 mg oral daily. She should be seen in followup by Dr. Ramos. Dr. Ramos's office will call the patient with a followup appointment date and time. The patient has also been made a followup appointment with her primary care provider , Dr. Subhash Monroe on 04/11/17 at 10 a.m. The patient should also follow up with HOT END OPERATOR for her vaginal bleeding. She was seen by Dr. Griffiths while in the hospital, but preferred to go to Dr. Tong's office across the street from her home. I have provided her with phone numbers to both offices and asked her to please call one of the offices to set up a followup appointment. The patient has been resumed on her other usual home medications. She has been asked to return to the emergency room for any chest pain or shortness of breath. This is a summarized report of a complex medical history and hospital stay. For further details, please see the entire medical record. TIME SPENT: Time for this discharge was approximately 50 minutes, greater than half of that was spent with the patient discussing discharge plans and instructions. BALWINDER GONZÁLES NP [id number]/[facility] #: [id number] KARLA
== END 2017-04-02 15:00 | disposition home or self-care (01) | DRG 191 ==
LOC: ED 11:18 → ICU 14:43 → MEDTELE 03-31 09:54
PROVIDERS: ADMIT Internal Medicine; ATTEND Internal Medicine
PROC: B211YZZ Fluoroscopy of Multiple Coronary Arteries using Other Contrast (ICD-10-PCS; 2017-03-29)
PROC: B215YZZ Fluoroscopy of Left Heart using Other Contrast (ICD-10-PCS; 2017-03-29)
PROC: 4A023N7 Measurement of Cardiac Sampling and Pressure, Left Heart, Percutaneous Approach (ICD-10-PCS; principal; 2017-03-29 12:30)
DX: I51.81 Takotsubo syndrome (principal); D25.9 Leiomyoma of uterus, unspecified; N93.9 Abnormal uterine and vaginal bleeding, unspecified; I10 Essential (primary) hypertension; K27.9 Peptic ulcer, site unspecified, unspecified as acute or chronic, without hemorrhage or perforation; G43.909 Migraine, unspecified, not intractable, without status migrainosus; G89.29 Other chronic pain; Z79.899 Other long term (current) drug therapy; Z85.118 Personal history of other malignant neoplasm of bronchus and lung; Z88.6 Allergy status to analgesic agent; Z88.8 Allergy status to other drugs, medicaments and biological substances; Z80.3 Family history of malignant neoplasm of breast; Z80.0 Family history of malignant neoplasm of digestive organs; Z87.891 Personal history of nicotine dependence
CPT/HCPCS: 36415; 71046; 71275; 76830; 80048; 80053; 81003; 81015; 82550; 82553; 83605; 83735; 83880; 84443; 84484; 85014; 85018; 85025; 85027; 85610; 85730; 87502; 87641; 90686; 93005; 93306; 93458; 99156; 99157; A9270-GY; C1760; C1769; C1887; J1644; J1650; J2250; J3010; J3475; Q9967

== ENCOUNTER 2017-04-04 14:11 | Emergency (ER) | payer OTHER ==
[2017-04-04 14:19] VITALS: BP 145/74
== END 2017-04-04 15:57 | disposition left against medical advice (07) ==
LOC: ED 14:11
DX: R68.89 Other general symptoms and signs (principal); Z53.21 Procedure and treatment not carried out due to patient leaving prior to being seen by health care provider

== ENCOUNTER 2017-04-06 10:15 | Emergency (ER) | payer OTHER ==
[2017-04-06] MEDS ORDERED: oxyCODONE/Acetamin 5/325 MG* TAB PO ONE (12:01)
[2017-04-06] MEDS ORDERED: Acetaminophen TAB* 325 MG PO ONE (12:02)
--- NOTE | 2017-04-06 13:13 | RAD ---
INDICATION: Tender focus overlying the right groin COMPARISON: None TECHNIQUE: Real time ultrasound images of the right groin were acquired with mack scale and Doppler color flow imaging. FINDINGS: Corresponding to the site of tenderness there is a subcutaneous lymph node exhibit a normal morphology measuring 0.9 x 2.8 x 0.9 cm. IMPRESSION: Top normal but morphologically normal-appearing lymph node in the right groin corresponding to the site of pain.
[2017-04-06 13:51] VITALS: BP 136/69
--- NOTE | 2017-04-06 21:01 | ED ---
Russell John Nikita, scribed for Yamil Dunham MD on 04/06/17 at 1159 . GI/ HPI - HPI Summary HPI Summary: This patient is a 61 year old F presenting to ED with a chief complaint of lump to R groin since heart catheter was placed on 03/29/17. The CC is described as sharp and aching. The patient rates the pain 8/10 in severity. Symptoms aggravated by palpation. Symptoms alleviated by nothing. Pt was also in the ED 2 days ago for similar symptoms. - History of Current Complaint Chief Complaint: EDHipPelvisInjury Time Seen by Provider: 04/06/17 11:39 Stated Complaint: LUMP IN RT LEG Hx Obtained From: Patient Onset/Duration: Started Weeks Ago, Still Present Timing: Constant, Lasting Weeks Severity: Severe Current Severity: Severe Pain Intensity: 8 Location of Pain: Groin Aggravating Factor(s): Palpation Alleviating Factor(s): Nothing - Additional Pertinent History Primary Care Physician: CIERRA - Allergy/Home Medications Allergies/Adverse Reactions: Allergies Allergy/AdvReac Type Severity Reaction Status Date / Time MS Naproxen [From Naprosyn] Allergy Unknown Verified 08/15/16 16:05 Reaction Details PMH/Surg Hx/FS Hx/Imm Hx Endocrine/Hematology History: Reports: Hx Anemia Denies: Hx Diabetes, Hx Sickle Cell Disease, Hx Thyroid Disease Cardiovascular History: Reports: Hx Angina, Hx Hypertension - NO MEDS Denies: Hx Congestive Heart Failure, Hx Peripheral Vascular Disease, Other Cardiovascular Problems/Disorders Respiratory History: Reports: Hx Lung Cancer Denies: Other Respiratory Problems/Disorders GI History: Reports: Hx Gastroesophageal Reflux Disease, Hx Ulcer, Other GI Disorders - CONSTPATION History: Reports: Hx Kidney Stones - CURRENTLY, Denies: Hx Renal Disease, Other Problems/Disorders Musculoskeletal History: Reports: Hx Arthritis - SHOULDERS, ARMS, HANDS, Hx Back Problems - pain Denies: Hx Osteoporosis, Other Musculoskeletal History Sensory History: Reports: Hx Cataracts Denies: Hx Contacts or Glasses, Hx Hearing Aid Opthamlomology History: Reports: Hx Cataracts Denies: Hx Contacts or Glasses Neurological History: Reports: Hx Headaches, Hx Migraine Denies: Hx Seizures, Hx Transient Ischemic Attacks (TIA), Other Neuro Impairments/Disorders - Cancer History Cancer Type, Location and Year: lung - Surgical History Surgery Procedure, Year, and Place: tubal ligation, 1979, [place], RT LOBECTOMY Hx Anesthesia Reactions: No - Immunization History Date of Influenza Vaccine: 03/2017 Immunizations Up to Date: Yes Infectious Disease History: No Infectious Disease History: Denies: Traveled Outside the [place] in Last 30 Days - Family History Known Family History: Negative: Renal Disease, Respiratory Disease, Seizure Disorder, Blood Disorder - Social History Alcohol Use: None Substance Use Type: Reports: None Smoking Status (MU): Former Smoker Type: Cigarettes Amount Used/How Often: AT MOST Have You Smoked in the Last Year: Yes Review of Systems Negative: Fever Positive: Other - lump to R letitia All Other Systems Reviewed And Are Negative: Yes Physical Exam - Summary Physical Exam Summary: VITAL SIGNS: Reviewed. GENERAL: ~Patient is a well-developed and nourished FEMALE who is lying comfortable in the stretcher. ~Patient is not in any acute respiratory distress. HEAD AND FACE: No signs of trauma. ~No ecchymosis, hematomas or skull depressions. No sinus tenderness. EYES: PERRLA, EOMI x 2, No injected conjunctiva, no nystagmus. EARS: Hearing grossly intact. Ear canals and tympanic membranes are within normal limits. MOUTH: Oropharynx within normal limits. NECK: Supple, trachea is midline, no adenopathy, no JVD, no carotid bruit, no c- spine tenderness, neck with full ROM. CHEST: Symmetric, no tenderness at palpation LUNGS: Clear to auscultation bilaterally. No wheezing or crackles. CVS: Regular rate and rhythm, S1 and S2 present, no murmurs or gallops appreciated. ABDOMEN: Soft, non-tender. No signs of distention. No rebound no guarding, and no masses palpated. Bowel sounds are normal. INGUINAL: Small lump in R groin where she has a catheter EXTREMITIES: FROM in all major joints, no edema, no cyanosis or clubbing. Good pulses in extremities. NEURO: Alert and oriented x 3. No acute neurological deficits. Speech is normal and follows commands. SKIN: Dry and warm Triage Information Reviewed: Yes Vital Signs On Initial Exam: Initial Vitals Temp Pulse Resp BP Pulse Ox 96.7 F 80 19 139/65 100 04/06/17 10:22 04/06/17 10:04/06/17 10:04/06/17 10:04/06/17 10:22 Vital Signs Reviewed: Yes Diagnostics - Vital Signs Vital Signs Temp Pulse Resp BP Pulse Ox 04/06/17 10:22 96.7 F 80 19 139/65 100 - Laboratory Lab Statement: Any lab studies that have been ordered have been reviewed, and results considered in the medical decision making process. - Ultrasound No standard instances Ultrasound Interpretation Completed By: Radiologist - Soft tissue US reveals Top normal but morphologically normal-appearing lymph node in the right groin corresponding to the site of pain. ED physician has reviewed this radiology report. GIGU Course/Dx - Course Assessment/Plan: This patient is a 61 year old F presenting to ED with a chief complaint of lump to R groin since heart catheter was placed on 03/29/17. Blood work is without significant abnormalities. The patient was given norco and Tylenol for pain. Her symptoms improved. US only showed lymph node. The patient will be D/C home with instructions to f/u with PCP. The patient is hemodynamically stable, alert and oriented x3. - Diagnoses Differential Diagnoses - Female: Other - inguinal lymph node Provider Diagnoses: inguinal lymph node Discharge - Discharge Plan Condition: Stable Disposition: HOME Patient Education Materials: Groin Pain (ED) Referrals: Subhash Monroe MD [Primary Care Provider] - 3 Days Additional Instructions: RETURN TO THE ED FOR ANY NEW OR WORSENING SYMPTOMS. The documentation as recorded by the Russell matos Nikita accurately reflects the service I personally performed and the decisions made by Roly dobbs Walter, MD.
== END 2017-04-06 13:51 | disposition home or self-care (01) ==
LOC: ED 10:15
DX: R22.2 Localized swelling, mass and lump, trunk (principal); Z87.891 Personal history of nicotine dependence
CPT/HCPCS: 99281

== ENCOUNTER 2017-05-25 08:21 | Inpatient (IN) | payer OTHER ==
[2017-05-25] MEDS ORDERED: Aspirin Low Dose CHEW TAB* 81 MG PO ONE (08:37)
[2017-05-25] MEDS ORDERED: Aspirin Low Dose CHEW TAB* 81 MG ONE (08:47)
[2017-05-25] MEDS ORDERED: Nitroglycerin TAB 0.4 MG* 0.4 MG TAB SL ONE (08:48)
[2017-05-25] MEDS ORDERED: Iohexol 350* (CONTRAST) 500 ML MDV IV ONE (08:59)
--- NOTE | 2017-05-25 09:14 | RAD ---
HISTORY: Chest pain COMPARISONS: March 29, 2017 VIEWS: 1: frontal portable view of the chest at 8:45 AM. The patient is slightly obliqued to the right. FINDINGS: LINES AND TUBES: None. CARDIOMEDIASTINAL SILHOUETTE: The cardiomediastinal silhouette is stable, accounting for obliquity.. PLEURA: The costophrenic angles are sharp. No pleural abnormalities are noted. LUNG PARENCHYMA: The lungs are clear. ABDOMEN: The upper abdomen is clear. There is no subphrenic gas. BONES AND SOFT TISSUES: No bone or soft tissue abnormalities are noted. IMPRESSION: NO ACTIVE CARDIOPULMONARY DISEASE.
[2017-05-25 09:25] LABS: Hematocrit 36 % (35-47); Hemoglobin 11.6 g/dl (12.0-16.0); Mean Corpuscular HGB Conc 33 g/dl (31-36); Mean Corpuscular Hemoglobin 28 pg (27-31); Mean Corpuscular Volume 87 fL (80-97); Mean Platelet Volume 8.8 um3 (7.4-10.4); Platelet Count 254 10^3/ul (150-450); Red Blood Count 4.12 10^6/ul (4.0-5.4); Red Cell Distribution Width 15 % (10.5-15); White Blood Count 8.1 10^3/ul (3.5-10.8)
[2017-05-25] MEDS ORDERED: Nitroglycerin 2% OINT* 1 GM PAK TOPICAL ONE (09:30)
[2017-05-25] MEDS ORDERED: Nitroglycerin 2% OINT* 1 GM PAK ONE (09:31)
--- OUTSIDE RECORDS SUMMARY | 2017-05-25 09:46 | XMS REPORT ---
:1955 External Reference #:[id number] Author Organization [facility] Address [address] [place] [address] Phone [phone] Care Team Providers Name Role Phone Subhash Monroe MD Care Team Information Manager Life Insurance Unavailable Subhash oMnroe MD Primary Care Physician Unavailable Payers Type Date Identification Numbers Payment Provider Subscriber Commercial Policy Number: [id number] [employer] [place] PayID: [id number] [address] [address] [place] [address] Commercial Expires: 2013 Policy Number: [employer] [place] [id number] Essential PayID: [id number] [address] [address] [place] [address] Problems Date Description Provider Status Onset: 11/30/2013 Rheumatoid arthritis Bryan Macias M.D. Active Family History Date Family Member(s) Problem(s) Comments General father had throath Ca General A sister had ovvarian Ca Social History Type Date Description Comments Marital Status Single Lives With Alone Occupation Disabled ETOH Use Denies alcohol use Smoking Patient is a former smoker quit 2014 Recreational Drug Use Denies Drug Use Daily Caffeine Does Not Consume Caffeine Exercise Type/Frequency Exercises regularly walking General Hx Text Allergies, Adverse Reactions, Alerts Date Description Reaction Status Severity Comments 11/30/2013 Cant Mention A Med She Would Be Allergic active To Medications Medication Date Status Form Strength Qnty SIG Indications Ordering Provider Losartan 04/18/ Active Tablets 50mg 90tabs 1 by mouth Erlin Mendoza Potassium 2018 every day DO Richard FACC Docusate 11/30/ Active Capsules 100mg 60caps 1 tab qd Bryan Sodium 2013 vasyl Macias M.D. Bentyl 11/30/ Active Capsules 10mg 30caps 1 tab bid Bryan 2014 (No longer Artemio Macias using) Methotrexate 11/30/ Active Tablets 2.5mg 15tabs 3 by mouth 714.0 Bryan 2013 on fridays Artemio Macias Folic Acid 11/30/ Active Tablets 1mg 30tabs 1 by mouth 714.0 Bryan 2013 every day Artemio Macias (No longer taking) Pantoprazole / Active Tablets DR 40mg 90tabs 1 by mouth Unknown Sodium 0000 every day Benadryl / Active Tablets 25mg 30tabs 1-2 by Unknown Allergy 0000 mouth q4-6h prn Oxycodone HCL / Active Tablets 5mg 1 tab 3 Breiman, 0000 times a MD Subhash day as needed Aspirin Adult / Active Chewtabs 81mg 1 by mouth Unknown Low Strength 0000 every day Ventolin HFA / Active Aerosol 108(90Base Inhale 2 Unknown 0000 ) mcg/Act Puffs Every 4 Hours as Needed Excedrin / Active Tablets 250-250-65 2 tabs by Unknown Migraine 0000 mg mouth as needed for migraine Prednisone / Hx Tablets 10mg 30tabs two tabs Unknown 0000 - bid x 5 04/16/ , then 2018 tab qd Hydrocodone/Ac / Hx 1 tab by Unknown etaminophen 0000 - mouth tid 5/325MG 04/16/ prn pain 2018 Propranolol / Hx Tablets 10mg 180tab 1 tab po Unknown HCL 0000 - s tid 2017 Amoxicillin / Hx Capsules 500mg 1 cap Radhaiman, 0000 - twice a MD Subhash day 2018 Losartan / Hx Tablets 25mg 1 by mouth Unknown Potassium 0000 - every day 2017 Metoprolol / Hx Tablets ER 25mg 90tabs 1 by mouth Erlin S. Succinate ER 0000 - 24HR every day DO Richard 05/02/ (pt not FACC 2018 taking) Vital Signs Date Vital Result Comment 05/09/2017 Height 61 inches 5'1" Weight 156.00 lb with shoes Heart Rate 66 /min BP Systolic Sitting 188 mmHg Rue reg cuff BP Diastolic Sitting 110 mmHg Rue reg cuff BP Systolic Standing 192 mmHg Rue reg cuff BP Diastolic Standing 112 mmHg Rue reg cuff Respiratory Rate 15 /min BMI (Body Mass Index) 29.5 kg/m2 Ejection Fraction 45% 05/07/2017-echo 04/18/2017 Height 61 inches 5'1" Weight 151.00 lb No shoes Heart Rate 54 /min BP Systolic Sitting 158 mmHg Rue reg cuff BP Diastolic Sitting 80 mmHg Rue reg cuff BP Systolic Standing 160 mmHg Rue reg cuff BP Diastolic Standing 90 mmHg Rue reg cuff Respiratory Rate 17 /min BMI (Body Mass Index) 28.5 kg/m2 Ejection Fraction 40% 03/31/2017-echo 11/30/2013 Height 61.75 inches 5'1.75" Weight 121.50 lb Heart Rate 60 /min BP Systolic Sitting 160 mmHg BP Diastolic Sitting 80 mmHg Pain Level 10 BMI (Body Mass Index) 22.4 kg/m2 Results Test Date Test Result H/L Range Note Laboratory test 05/09/2017 B-Type Natriuretic <pending> finding Peptide BNP Xray 05/09/2017 Chest PA & Lat 2 <pending> VWS Procedures Date CPT Code Description Status 05/09/2017 51937 EKG Tracing & Interpretation Completed 05/07/2017 69688 ECHO Transthorasic Realtime 2D W Doppler & Color Completed Flow Hosp 04/18/2017 00577 EKG Tracing & Interpretation Completed 04/01/2017 34938 EKG, Interpretation Only Completed 03/31/2017 99803 EKG, Interpretation Only Completed 03/31/2017 61759 ECHO Transthorasic Realtime 2D W Doppler & Color Completed Flow Hosp 03/30/2017 79717 EKG, Interpretation Only Completed 03/29/2017 37740 EKG, Interpretation Only Completed 03/29/2017 55783 EKG, Interpretation Only Completed 03/29/2017 68148 Left Heart Cath. Incl S/I Coronaries, Angio S/I V Gram Completed If Done 02/08/2014 31626 Diffusing Capacity Completed 02/08/2014 16274 Plethysmography Determination Lung Volumes & Per Completed Airway Resist 02/08/2014 51854 Pulmonary Function><Bronchodil Completed 07/29/2013 48494 ECHO Transthorasic Realtime 2D W Doppler & Color Completed Flow Hosp 11/14/2009 03703 Rad Shoulder Comp, Min. 2 Views Completed 11/14/2009 08827 Rad Shoulder Comp, Min. 2 Views Completed Encounters Type Date Location Provider CPT E/M Dx Office Visit 04/18/2017 [facility] [place] [address] I51.81 1:40p [facility] FACC I10 Office Visit 04/02/2017 11:06a [facility] Sherly TrivediUlises, 13827 J11.1 Assoc,pc [employer]K SU[employer] SPECIALIST Hospitalists R07.89 I10 Office Visit 04/01/2017 [facility] Sherly TrivediUlises, 55693 I51.81 2:57p Assoc,pc [employer] SPECIALIST Hospitalists I10 G43.909 K21.9 Office Visit 03/31/2017 11:04a [facility] Assoc,elijah Ramos M.D. 85527 I51.81 Hospitalists I10 G43.909 K21.9 [facility] 14470 I51.81 Hospitalists I10 G43.909 K21.9 Office Visit 03/30/2017 1:33p [facility] SNii Ramos, 52852 I51.81 [facility] DO FACC Office Visit 03/29/2017 10:59a [facility] Assoc,pc Ashkan Barron, 99858 I51.81 Hospitalists N.P. I10 K21.9 Office Visit 03/29/2017 1:24p [facility] SNii Ramos, 78795 I51.81 [facility] DO FACC Office Visit 11/30/2013 2:00p [facility] Bryan Macias M.D. 97890 714.0 Of [facility] Office Visit 07/29/2013 1:50p [facility] Matthew Jean-Baptiste M.D. 67455 786.51 Hospitalists 786.05 401.9 786.2 Office Visit 07/28/2013 1:50p [facility] [place] [address] 786.51 Hospitalists 786.05 401.9 786.2 Office Visit 11/14/2009 1:00p [facility] Naqvi M.D. 93245 726.11 [facility] Plan of Care 05/09/2017 - Erlin Ramos DO FACCI51.81 Takotsubo syndromeComments:Stop taking aspirin Bring all of your medications to next office visitFollow up:f/u 4 months with EKGI10 Essential (primary) fzgcitdabqohY10.02 Shortness of breath
--- OUTSIDE RECORDS SUMMARY | 2017-05-25 09:47 | XMS REPORT ---
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 Active Onset: 04/25/2011 Irritable bowel syndrome Subhash Monroe M.D. Active Onset: 04/25/2011 Female climacteric state Subhash Monroe M.D. Active Onset: 11/07/2011 Urinary tract infectious disease Subhash Monroe M.D. Active Onset: 11/23/2011 Migraine with typical aura Subhash Monroe M.D. Active Onset: 12/26/2011 Eruption Jorge Craven M.D. Active Onset: 01/21/2012 Acute bronchitis Subhash Monroe M.D. Active Onset: 05/14/2012 Visual impairment Subhash Monroe M.D. Active Onset: 12/08/2012 Menopausal and postmenopausal Subhash Monroe M.D. Active disorders Onset: 12/08/2012 Human papilloma virus infection Subhash Monroe M.D. Active Onset: 05/18/2013 Peptic reflux disease Subhash Monroe M.D. Active Onset: 07/31/2013 Chest pain Subhash Monroe M.D. Active Onset: 01/11/2014 Localized swelling, mass and lump, Subhash Monroe M.D. Active trunk Onset: 01/11/2014 Epigastric pain Subhash Monroe M.D. Active Onset: 03/15/2014 Tobacco user Subhash Monroe M.D. Active Onset: 05/12/2014 Headache Subhash Monroe M.D. Active Onset: 05/12/2014 Malignant neoplasm of lower lobe, Subhash Monroe M.D. Active bronchus or lung Onset: 08/27/2014 Arthralgia of the lower leg Subhash Monroe M.D. Active Onset: 04/16/2016 Low back pain Subhash Monroe M.D. Active Onset: 04/15/2017 Takotsubo cardiomyopathy Subhash Monroe M.D. Active Onset: 04/15/2017 Essential hypertension Subhash Monroe M.D. Active Social History Type Date Description Comments Smoking Patient is a former smoker Allergies, Adverse Reactions, Alerts Date Description Reaction Status Severity Comments 04/14/2010 Naprosyn active Ithcy Rash Medications Medication Date Status Form Strength Qnty SIG Indications Ordering Provider Levalbuterol 04/30/ Hx Aerosol 45mcg/Act 15gm 2 puffs q J20.9 Lyubov Tartrate 2018 - 4 hr prn Grace, 05/14/ wheeze / Afnp-C 2018 cough Oxycodone HCL 04/15/ Active Tablets 5mg 90tabs Use 1 Subhash Espinosa 2018 Pill 3 Breiman, Times A M.D. Day For Pain Celebrex 06/28/ Active Capsules 200mg 30caps take one Subhash Espinosa 2015 capsule Breiman, by mouth M.D. every day Protonix 04/27/ Active Tablets DR 40mg 30tabs take 1 K21.0 Subhash Espinosa 2015 tablet Breiman, every day M.D. R10.9 Hydroxyzine HCL 03/08/2015 Active Tablets 25mg 60tabs 1-2 tab by Subhash Espinosa mouth every Breiman, 4 hours as M.D. needed Nicotine Step 2 12/20/2014 Active Patches 14mg/2 30units apply to Subhash Espinosa 24HR 4HR clean dry Breimaglenn, skin every M.D. day Colace 06/09/2012 Active Capsules 100mg 30caps one tab by Maranda mouth daily Sledge, as needed M.D. Losartan Active Tablets 25mg 1 by mouth Unknown Potassium every day Metoprolol Active Tablets ER 25mg 1 by mouth Unknown Succinate ER 24HR every day Aspir-Low Active Tablets DR 81mg once daily Unknown Amoxicillin 04/15/2017 - Hx Tablets 500mg 20tabs 1 by mouth Subhash Espinosa 04/30/2017 twice a day Fer, for M.D. bronchitis Amoxicillin 06/14/2016 - Hx Tablets 500mg 14tabs 1 by mouth Subhash Espinosa 04/15/2017 twice a day Artemio Monroe Hydrocodone-Acet 06/29/2015 - Hx Tablets 10-325 90tabs 1 tab by Subhash mims 04/15/2017 mg mouth three Breiman, times a day M.D. as needed Amoxicillin 05/11/2015 - Hx Tablets 500mg 14tabs 1 po bid Subhash Espinosa 06/29/2015 Artemio Monroe Hydrocodone-Acet 03/26/2015 - Hx Tablets 5-325m 90tabs 1 three Subhash mims 06/29/2015 g times a day Breimaglenn, as needed M.D. Augmentin 12/07/2014 - Hx Tablets 875-12 20tabs 1 by mouth Lyubov 12/17/2014 5mg twice a day Ericorf, take with Afnp-C food Hydrocodone/Acet 08/27/2014 - Hx Tablets 5-325m 90tabs 1 by mouth Subhash mims 03/26/2015 g tidprn pain blanca Monroe M.D. Fentanyl 08/16/2014 - Hx Patches 25mcg/ 10units change every Subhash Espinosa 08/27/2014 72HR HR 3 days call urbano Monroe M.D. Note 06/16/2014 - Hx had recent Subhash Espinosa 08/27/2014 surgery Fer, needs her Artemio electrical services for her recovery Nortriptyline 05/19/2014 - Hx Capsules 25mg 30caps use 1 pill Subhash Espinosa HCL 08/16/2014 every night Fer, at bedtime Artemio Cipro 05/12/2014 - Hx Tablets 500mg 20tabs 1 by mouth Subhash Espinosa 05/19/2014 twice a day Artemio Monroe Amitriptyline 05/12/2014 - Hx Tablets 25mg 30tabs take 1 Subhash Espinosa HCL 05/19/2014 tablets by Fer, mouth at M.D. bedtime Nicotine 03/15/2014 - Hx Patches 14mg/2 30units one patch Subhash Espinosa 08/16/2014 24HR 4HR daily Artemio Monroe Proctosol HC 01/11/2014 - Hx Cream 2.5% 30gm apply two Subhash Espinosa 08/27/2014 times a day Fer, as needed MPastora Macrobid 12/28/2013 - Hx Capsules 100mg 10caps 1 by mouth Subhash Espinosa 12/07/2014 twice a day Fer, x 5 days M.DNii Omeprazole 12/25/2013 - Hx Capsules DR 40mg 30caps 1 by mouth 53 Subhash Espinosa 04/27/2015 every day 0. Abran Monroe M.DNii 789.00 Prednisone 11/22/2013 - Hx Tablets 10mg 60tabs take 2 pills Subhash Espinosa 12/25/2013 twice a day Fer, for 5 days M.D. then 1pill twice a day for the rest of the time Pantoprazole 10/13/2013 - Hx Tablets DR 40mg 30tabs 1 po qd Subhash Espinosa Sodium 12/27/2013 Artemio Monroe Omeprazole 09/21/2013 - Hx Capsules DR 20mg 30caps 1 po qd Subhash Espinosa 10/13/2013 Artemio Monroe Hydrocodone/Acet 08/17/2013 - Hx Tablets 5-325mg 90tabs 1 by mouth Subhash Espinosa aminoleigha 08/16/2014 tidpangelia pain dt katharina Monroe M.D. Tramadol HCL 07/31/2013 - Hx Tablets 50mg 90tabs 1 tid for Subhash Espinosa 08/17/2013 pain Artemio Monroe Hydrocodone/Acet 04/03/2013 - Hx Tablets 5-325mg 90tabs 1 po TIDprn Subhash mims 07/31/2013 pain dt Artemio Monroe Azelastine HCL 02/24/2013 - Hx Solution 0.05% 5ml 1 gtt affected 782 Subhash Espinosa 07/31/2013 eye bid prn .1 Artemio Mornoe Propranolol HCL 01/26/2013 - Hx Tablets 10mg 60tabs 1 by mouth bid Subhash Espinosa 03/15/2014 times a day Artemio Monroe Ambien 05/14/2012 - Hx Tablets 5mg 30tabs 1 po qhs prn Subhash Espinosa 10/29/2012 sleep Artemio Monroe Cipro 05/14/2012 - Hx Tablets 250mg 10tabs 1 po bid Subhash Espinosa 10/29/2012 Artemio Monroe Amoxicillin 03/24/2012 - Hx Capsules 500mg 20caps bid x 8 days Subhash Espinosa 05/14/2012 Artemio Monroe Amoxicillin 01/21/2012 - Hx Tablets 500mg 20tabs 1 po bid Subhash Espinosa 03/24/2012 Artemio Monroe Permethrin 12/26/2011 - Hx Cream 5% 1Bottle apply from 782 Patel A. 03/24/2012 chin to toes, .1 Merissa, leave on for Artemio 8-10 hours then wash, repeat in one week Triamcinolone 12/26/2011 - Hx Cream 0.1% 30gm apply to 2 Orbisonia A. Acetonide 03/24/2012 affected skin .1 Merissa, adriane tiradon Artemio Cipro 11/09/2011 - Hx Tablets 250mg 6tabs 1 po bid Subhash Espinosa 11/23/2011 Artemio Monroe Septra DS 11/07/2011 - Hx Tablets 800-160 10tabs 1 po bid Subhash Espinosa 11/23/2011 mg Artemio Monroe Bentyl 05/28/2011 - Hx Capsules 10mg 60caps bid for Elie T. 04/01/2014 bowels Artemio Sarmiento Effexor 04/25/2011 - Hx Tablets 37.5mg 60tabs take one Subhash Espinosa 05/28/2011 tablet po Fer, twice a day Artemio Tylenol 02/21/2011 - Hx 500mg 30units 2 po qid prn Lyubov 12/26/2011 nunez GraceLeisa-C Omeprazole 02/07/2011 - Hx Capsules DR 40mg 30caps 1 po qd blanca Espinosa 10/13/2013 Artemio Monroe Colace 01/04/2011 - Hx Capsules 100 30caps one tab po Subhash Espinosa 06/09/2012 daily prn blanca Monroe M.D. Penvk 08/02/2010 - Hx 500 20units use bid x 10 Subhash Espinosa 02/21/2011 days dt Artemio Monroe Flexeril 04/14/2010 - Hx Tablets 10mg 90tabs 1 po tid prn Subhash Espinosa 07/31/2013 muscle spasm blanca Monroe M.D. Sumatriptan 04/13/2010 - Hx Tablets 50mg 9tabs take 1 tablet 346 Patel A. Succinate 05/28/2011 at onset of .11 nikki Craven may M.D. repeat in 2hrs if no response max 2 tablets daily Medrol Dosepak 04/06/2010 - Hx Tablets 4mg 1tabs use as 709 Patel ANii 04/14/2010 directed .9 Artemio Craven Amitriptyline 02/27/2010 - Hx Tablets 10mg 30tabs take 1 Subhash Espinosa HCL 04/06/2010 tablets by raymon Monroe at M.DNii bedtime Naprosyn 11/08/2009 - Hx Tablets 500mg 20tabs 1 q 12h with 726 Subhash Espinosa 04/14/2010 food .19 Artemio Monroe Prednisone 06/21/2009 - Hx Tablets 10mg 30tabs 2 bid x 3 days Elie TNii 11/08/2009 then 2 am, 1 Midura, pm x 3 days M.D. then 1 bid x 3 days then 1 qd x 3 Prevacid 03/29/2009 - Hx CPDR 15mg 30units take 1 capsule Subhash Espinosa 02/21/2011 every day Artemio Monroe# [id number] Cipro 02/11/2009 - Hx Tablets 250mg 10tabs 1 po bid Subhash Espinosa 06/21/2009 Artemio Monroe Proair HFA 11/27/2008 - Hx Aerosol 108mcg/ sample 2 puffs q 4-6 466 Korina 06/21/2009 Act hr prn .0 KAYLEN Godfrey Azithromycin 11/23/2008 - Hx Tablets 250mg 6tabs 2 po today and 465 Patel A. 06/21/2009 1 po x 4 days .9 Artemio Craven 466.0 Nexium 09/01/2008 - Hx Capsules 40mg 30caps 1 po qd 530.11 Subhash Espinosa 10/13/2013 DR Fer M.D. Bentyl 09/01/2008 - Hx Capsules 10mg 90caps 1 po tid Lyubov 05/28/2011 dt Leisa Edwards-C Clobetasol 08/03/2008 - Hx Solution 0.05% 50ml apply to 782.1 Martha GrullonNii Propionate 11/23/2008 scalp bid Artemio Pérez Desire 08/03/2008 - Hx Tablets 180mg 30tabs 1 po qd 782.1 Martha Brody 08/03/2008 Artemio Pérez Omeprazole 08/03/2008 - Hx Capsules 40mg 30caps 1 po qd 530.81 Martha Brody 09/01/2008 DR Elisa M.D. Patanol 08/03/2008 - Hx Solution 0.1% 5ml 2 gtts in 782.1 Subhash Espinosa 02/24/2013 affected Breiman, eye bid Yadi.Vikki prn Ranjit 02/13/2008 - Hx Capsules 10mg 60caps 1 po bid Subhash Espinosa 09/01/2008 Artemio Monroe dt 01/19/2008 - Hx Tablets 20tabs use bid Subhash Espinosa 02/12/2008 for cramps Fer and Artemio diarrhea Penicillin V 07/16/2007 - Hx Tablets 500mg 21tabs use tid Subhash Espinosa Potassium 01/19/2008 x 10 Artemio Monroe Hydrocodone/Aceta 07/16/2007 - Hx Tablets 5-500m 90tabs take 1 po Subhash Espinosa minophen 04/03/2013 g Tid prn Artemio Monroe dt Multivitamin/Iron 06/02/2007 - Hx Chewtabs Family 07/16/2007 [facility] Prevacid 06/02/2007 - Hx Capsules 30mg 30caps Use PO Family 07/16/2007 DR Gomez [facility] Amlodipine 06/02/2007 - Hx Tablets 10mg 30tabs 1 PO qd Family Besylate 07/16/2007 [facility] Nexium - Hx Capsules 20mg 30caps use daily Subhash Espinosa 08/12/2008 DR blanca Monroe M.D. Zantac - Hx Capsules 150mg Unknown 09/01/2008 Benadryl - Hx Capsules 25mg 30caps 1-2 po q Unknown 12/25/2013 4-6 hrs prn Hydrocortisone - Hx Cream 1% 20gm apply Unknown 04/14/2010 think layer bid to affected area. Prednisone - Hx Tablets 5mg 30tabs take 2 po Unknown 11/22/2013 bid x 3 days, then take 1 po tid x 3 days, then take 1 po bid x 3 days, then 1 po qd x 3 days, then stop Immunizations CPT Code Status Date Vaccine Lot # [id number] Given 12/20/2014 Influenza Vac, Quadrivalent, Slit Virus, Im [id number] Vital Signs Date Vital Result Comment 04/30/2017 BP Systolic 124 mmHg BP Diastolic 82 mmHg Heart Rate 60 /min Body Temperature 98.2 F Respiratory Rate 16 /min O2 % BldC Oximetry 99 % Weight 155.00 lb 04/15/2017 BP Systolic 178 mmHg BP Diastolic 98 mmHg Heart Rate 72 /min Body Temperature 97.7 F Height 60.5 inches 5'0.50" Weight 155.25 lb BMI (Body Mass Index) 29.8 kg/m2 04/16/2016 BP Systolic 128 mmHg BP Diastolic 70 mmHg Heart Rate 64 /min Body Temperature 98.0 F Respiratory Rate 18 /min Height 60.5 inches 5'0.50" Weight 154.00 lb BMI (Body Mass Index) 29.6 kg/m2 06/29/2015 BP Systolic 130 mmHg BP Diastolic 70 mmHg Heart Rate 62 /min Body Temperature 97.9 F Respiratory Rate 18 /min Height 60.5 inches 5'0.50" Weight 164.00 lb BMI (Body Mass Index) 31.5 kg/m2 12/20/2014 BP Systolic 120 mmHg BP Diastolic 80 mmHg Heart Rate 60 /min Body Temperature 98.6 F Respiratory Rate 18 /min Height 60.5 inches 5'0.50" Weight 161.00 lb BMI (Body Mass Index) 30.9 kg/m2 12/07/2014 BP Systolic 140 mmHg BP Diastolic 80 mmHg Heart Rate 72 /min Body Temperature 97.6 F Respiratory Rate 16 /min Height 60.5 inches 5'0.50" 08/27/2014 BP Systolic 130 mmHg BP Diastolic 80 mmHg Heart Rate 76 /min Body Temperature 97.2 F Height 60.5 inches 5'0.50" 08/16/2014 BP Systolic 130 mmHg BP Diastolic 70 mmHg Heart Rate 70 /min Body Temperature 99.1 F Respiratory Rate 16 /min Height 60.5 inches 5'0.50" Weight 139.00 lb BMI (Body Mass Index) 26.7 kg/m2 05/19/2014 BP Systolic 126 mmHg BP Diastolic 70 mmHg Heart Rate 64 /min Body Temperature 97.9 F Respiratory Rate 18 /min Height 60.5 inches 5'0.50" 05/12/2014 BP Systolic 130 mmHg BP Diastolic 70 mmHg Heart Rate 62 /min Body Temperature 97.6 F Respiratory Rate 20 /min O2 % BldC Oximetry 99 % Height 60.5 inches 5'0.50" Weight 135.00 lb BMI (Body Mass Index) 25.9 kg/m2 03/15/2014 BP Systolic 136 mmHg BP Diastolic 80 mmHg Heart Rate 62 /min Body Temperature 97.7 F Respiratory Rate 16 /min Height 60.5 inches 5'0.50" Weight 127.00 lb BMI (Body Mass Index) 24.4 kg/m2 02/01/2014 BP Systolic 122 mmHg BP Diastolic 74 mmHg Heart Rate 62 /min Body Temperature 97.5 F Respiratory Rate 16 /min Height 60.5 inches 5'0.50" Weight 125.00 lb BMI (Body Mass Index) 24.0 kg/m2 01/11/2014 BP Systolic 140 mmHg BP Diastolic 74 mmHg Heart Rate 62 /min Body Temperature 97.9 F Respiratory Rate 18 /min Height 60.5 inches 5'0.50" Weight 125.00 lb BMI (Body Mass Index) 24.0 kg/m2 12/25/2013 BP Systolic 170 mmHg BP Diastolic 90 mmHg Heart Rate 60 /min Body Temperature 97.0 F Respiratory Rate 18 /min Height 60.5 inches 5'0.50" Weight 120.38 lb BMI (Body Mass Index) 23.1 kg/m2 12/24/2013 BP Systolic 120 mmHg BP Diastolic 80 mmHg Heart Rate 68 /min Body Temperature 98.0 F Respiratory Rate 14 /min O2 % BldC Oximetry 98 % Height 60.5 inches 5'0.50" Weight 120.00 lb BMI (Body Mass Index) 23.0 kg/m2 11/16/2013 BP Systolic 118 mmHg BP Diastolic 80 mmHg Heart Rate 64 /min Body Temperature 97.8 F Respiratory Rate 18 /min Height 60.5 inches 5'0.50" Weight 125.00 lb BMI (Body Mass Index) 24.0 kg/m2 07/31/2013 BP Systolic 124 mmHg BP Diastolic 70 mmHg Heart Rate 64 /min Body Temperature 97.7 F Respiratory Rate 18 /min Height 60.5 inches 5'0.50" Weight 120.00 lb BMI (Body Mass Index) 23.0 kg/m2 05/18/2013 BP Systolic 118 mmHg BP Diastolic 80 mmHg Heart Rate 62 /min Body Temperature 98.8 F Respiratory Rate 18 /min Height 60.5 inches 5'0.50" Weight 131.00 lb BMI (Body Mass Index) 25.2 kg/m2 01/26/2013 BP Systolic 136 mmHg BP Diastolic 80 mmHg Heart Rate 66 /min Body Temperature 97.8 F Respiratory Rate 18 /min Height 60.5 inches 5'0.50" Weight 127.00 lb BMI (Body Mass Index) 24.4 kg/m2 12/08/2012 BP Systolic 122 mmHg BP Diastolic 70 mmHg Heart Rate 68 /min Body Temperature 97.1 F Respiratory Rate 18 /min Height 60.5 inches 5'0.50" Weight 125.00 lb BMI (Body Mass Index) 24.0 kg/m2 10/29/2012 BP Systolic 146 mmHg BP Diastolic 80 mmHg Heart Rate 60 /min Body Temperature 97.0 F Respiratory Rate 16 /min Height 60.5 inches 5'0.50" Weight 123.25 lb BMI (Body Mass Index) 23.7 kg/m2 10/27/2012 BP Systolic 118 mmHg BP Diastolic 80 mmHg Heart Rate 76 /min Body Temperature 96.3 F Respiratory Rate 18 /min Height 60.5 inches 5'0.50" Weight 121.00 lb BMI (Body Mass Index) 23.2 kg/m2 05/14/2012 BP Systolic 150 mmHg BP Diastolic 90 mmHg Heart Rate 70 /min Body Temperature 98.1 F Respiratory Rate 18 /min Height 60.5 inches 5'0.50" Weight 123.00 lb BMI (Body Mass Index) 23.6 kg/m2 03/24/2012 BP Systolic 110 mmHg BP Diastolic 80 mmHg Heart Rate 68 /min Body Temperature 98.9 F Height 60.5 inches 5'0.50" Weight 120.00 lb BMI (Body Mass Index) 23.0 kg/m2 01/21/2012 BP Systolic 148 mmHg BP Diastolic 80 mmHg Heart Rate 67 /min Body Temperature 97.0 F O2 % BldC Oximetry 99 % Height 60.5 inches 5'0.50" Weight 126.00 lb BMI (Body Mass Index) 24.2 kg/m2 12/26/2011 BP Systolic 114 mmHg BP Diastolic 64 mmHg Heart Rate 90 /min Body Temperature 97.0 F Height 60.5 inches 5'0.50" Weight 122.00 lb BMI (Body Mass Index) 23.4 kg/m2 11/23/2011 BP Systolic 120 mmHg BP Diastolic 70 mmHg Heart Rate 72 /min Body Temperature 97.9 F Respiratory Rate 20 /min Height 60.5 inches 5'0.50" Weight 117.00 lb BMI (Body Mass Index) 22.5 kg/m2 11/07/2011 BP Systolic 120 mmHg BP Diastolic 78 mmHg Heart Rate 68 /min Body Temperature 96.7 F Height 60.5 inches 5'0.50" Weight 120.00 lb BMI (Body Mass Index) 23.0 kg/m2 05/28/2011 BP Systolic 134 mmHg BP Diastolic 72 mmHg Heart Rate 72 /min Body Temperature 96.4 F Height 60.5 inches 5'0.50" Weight 123.00 lb BMI (Body Mass Index) 23.6 kg/m2 04/25/2011 BP Systolic 104 mmHg BP Diastolic 76 mmHg Heart Rate 70 /min Body Temperature 97.7 F Height 60.5 inches 5'0.50" Weight 120.00 lb BMI (Body Mass Index) 23.0 kg/m2 02/21/2011 BP Systolic 126 mmHg BP Diastolic 70 mmHg Heart Rate 80 /min Body Temperature 98.1 F Height 60.5 inches 5'0.50" Weight 120.00 lb BMI (Body Mass Index) 23.0 kg/m2 04/14/2010 BP Systolic 116 mmHg BP Diastolic 78 mmHg Heart Rate 72 /min Body Temperature 97.3 F Height 60.5 inches 5'0.50" Weight 125.00 lb BMI (Body Mass Index) 24.0 kg/m2 04/13/2010 BP Systolic 110 mmHg BP Diastolic 74 mmHg Heart Rate 76 /min Body Temperature 98.3 F Respiratory Rate 15 /min Height 60.5 inches 5'0.50" Weight 129.00 lb BMI (Body Mass Index) 24.8 kg/m2 04/06/2010 BP Systolic 120 mmHg BP Diastolic 70 mmHg Heart Rate 76 /min Body Temperature 97.4 F Respiratory Rate 28 /min O2 % BldC Oximetry 100 % Height 60.5 inches 5'0.50" Weight 129.00 lb BMI (Body Mass Index) 24.8 kg/m2 04/03/2010 BP Systolic 130 mmHg BP Diastolic 72 mmHg Heart Rate 72 /min Body Temperature 98.5 F Respiratory Rate 16 /min O2 % BldC Oximetry 98 % Height 60.5 inches 5'0.50" Weight 127.00 lb BMI (Body Mass Index) 24.4 kg/m2 02/27/2010 BP Systolic 130 mmHg BP Diastolic 80 mmHg Heart Rate 84 /min Body Temperature 97.4 F Height 60.5 inches 5'0.50" Weight 124.00 lb BMI (Body Mass Index) 23.8 kg/m2 11/08/2009 BP Systolic 138 mmHg BP Diastolic 64 mmHg Heart Rate 66 /min Body Temperature 98.5 F Height 60.5 inches 5'0.50" Weight 125.00 lb BMI (Body Mass Index) 24.0 kg/m2 06/21/2009 BP Systolic 124 mmHg BP Diastolic 60 mmHg Heart Rate 66 /min Body Temperature 97.8 F Height 60.5 inches 5'0.50" Weight 118.00 lb BMI (Body Mass Index) 22.7 kg/m2 02/11/2009 BP Systolic 120 mmHg BP Diastolic 62 mmHg Heart Rate 72 /min Body Temperature 98.0 F Height 60.5 inches 5'0.50" Weight 123.00 lb BMI (Body Mass Index) 23.6 kg/m2 11/27/2008 BP Systolic 122 mmHg BP Diastolic 64 mmHg Heart Rate 56 /min Body Temperature 95.3 F Height 60.5 inches 5'0.50" Weight 112.00 lb BMI (Body Mass Index) 21.5 kg/m2 11/23/2008 BP Systolic 128 mmHg BP Diastolic 80 mmHg Heart Rate 72 /min Body Temperature 97.7 F Height 60.5 inches 5'0.50" Weight 112.00 lb BMI (Body Mass Index) 21.5 kg/m2 09/01/2008 BP Systolic 114 mmHg BP Diastolic 80 mmHg Heart Rate 60 /min Body Temperature 97.7 F Height 60.5 inches 5'0.50" Weight 104.00 lb BMI (Body Mass Index) 20.0 kg/m2 08/12/2008 BP Systolic 100 mmHg BP Diastolic 64 mmHg Heart Rate 72 /min Body Temperature 97.2 F Height 60.5 inches 5'0.50" Weight 108.00 lb BMI (Body Mass Index) 20.7 kg/m2 08/03/2008 BP Systolic 102 mmHg BP Diastolic 70 mmHg Heart Rate 76 /min Body Temperature 98.1 F Height 60.5 inches 5'0.50" Weight 109.00 lb BMI (Body Mass Index) 20.9 kg/m2 02/09/2008 BP Systolic 134 mmHg BP Diastolic 70 mmHg Heart Rate 96 /min Body Temperature 97.0 F Height 60.5 inches 5'0.50" Weight 113.00 lb BMI (Body Mass Index) 21.7 kg/m2 01/19/2008 BP Systolic 150 mmHg BP Diastolic 90 mmHg Heart Rate 80 /min Body Temperature 97.8 F Height 60.5 inches 5'0.50" Weight 116.00 lb BMI (Body Mass Index) 22.3 kg/m2 07/16/2007 BP Systolic 138 mmHg BP Diastolic 80 mmHg Heart Rate 60 /min Body Temperature 98.4 F Height 60.5 inches 5'0.50" Weight 150.00 lb BMI (Body Mass Index) 28.8 kg/m2 06/02/2007 BP Systolic 182 mmHg BP Diastolic 100 mmHg Heart Rate 64 /min Height 60.5 inches 5'0.50" Weight 121.00 lb BMI (Body Mass Index) 23.2 kg/m2 Results Test Date Test Result H/L Range Note Urinalysis Profile 03/29/2017 Urine Color Yellow Urine Appearance Cloudy Urine Specific [place] 1.010 1.010-1.030 Urine pH 6.0 5-9 Urine Urobilinogen Negative Negative Urine Ketones Trace Negative Urine Protein Negative Negative Urine Leukocytes Negative Negative Urine Blood 1+ Negative Urine Nitrite Negative Negative Urine Bilirubin Negative Negative Urine Glucose Negative Negative Urine White Blood Cell Absent Absent Urine Red Blood Cell Trace(0-2/hpf) Absent Urine Bacteria Absent Absent Urine Squamous Epithelial Cell Present Absent CBC Auto Diff 03/29/2017 White Blood Count 5.2 10^3/uL 3.5-10.8 Red Blood Count 3.93 10^6/uL Low 4.0-5.4 Hemoglobin 11.2 g/dL Low 12.0-16.0 Hematocrit 34 % Low 35-47 Mean Corpuscular Volume 87 fL 80-97 Mean Corpuscular Hemoglobin 28 pg 27-31 Mean Corpuscular HGB Conc 33 g/dL 31-36 Red Cell Distribution Width 15 % 10.5-15 Platelet Count 259 10^3/uL 150-450 Mean Platelet Volume 9 um3 7.4-10.4 Abs Neutrophils 3.2 10^3/uL 1.5-7.7 Abs Lymphocytes 1.7 10^3/uL 1.0-4.8 Abs Monocytes 0.2 10^3/uL 0-0.8 Abs Eosinophils 0 10^3/uL 0-0.6 Abs Basophils 0 10^3/uL 0-0.2 Abs Nucleated RBC 0 10^3/uL Granulocyte % 61.9 % 38-83 Lymphocyte % 33.0 % 25-47 Monocyte % 4.5 % 1-9 Eosinophil % 0.1 % 0-6 Basophil % 0.5 % 0-2 Nucleated Red Blood Cells % 0.1 Laboratory test finding 03/29/2017 B-Type Natriuretic Peptide BNP 748 pg/mL High 1 Lactic Acid 2.0 mmol/L 0.5-2.0 2 Comp Metabolic Panel 03/29/2017 Sodium 137 mmol/L 133-145 Potassium 3.5 mmol/L 3.5-5.0 Chloride 103 mmol/L 101-111 Co2 Carbon Dioxide 23 mmol/L 22-32 Anion Gap 11 mmol/L 2-11 Glucose 108 mg/dL High 70-100 Blood Urea Nitrogen 13 mg/dL 6-24 Creatinine 0.69 mg/dL 0.51-0.95 BUN/Creatinine Ratio 18.8 8-20 Calcium 10.1 mg/dL 8.6-10.3 Total Protein 8.5 g/dL 6.4-8.9 Albumin 4.4 g/dL 3.2-5.2 Globulin 4.1 g/dL High 2-4 Albumin/Globulin Ratio 1.1 1-3 Total Bilirubin 0.40 mg/dL 0.2-1.0 Alkaline Phosphatase 77 U/L 34-104 Alt 8 U/L 7-52 Ast 21 U/L 13-39 Egfr Non- 86.5 >60 Egfr 111.2 >60 3 Laboratory test finding 03/29/2017 Magnesium 1.8 mg/dL Low 1.9-2.7 Creatine Kinase(CK) 133 U/L 10-223 CKMB 03/29/2017 CKMB ng/mL 8.7 ng/mL High 0.6-6.3 Laboratory test finding 03/29/2017 TSH (Thyroid Stim 0.91 mcIU/mL 0.34- 5.60 Horm) Troponin I 1.54 ng/mL High <0.04 4 Inr/Protime 03/29/2017 Inr 1.06 High 0.77-1.02 Laboratory test 03/29/2017 Partial Thrombo 33.3 seconds 26.0-36.3 finding Time PTT Laboratory test 08/15/2016 Wound SEE RESULT BELOW 5, 6 finding Culture/Sensi Comprehensive 04/16/2016 Sodium 138 mEq/L 134-149 Metabolic Prof Potassium 4.0 mEq/L 3.6-5.5 Chloride 103 mEq/L 94-112 Carbon Dioxide 29 mEq/L 21-32 Glucose 77 mg/dL 70-105 BUN 11 mg/dL 6-26 Creatinine 0.6 mg/dL 0.6-1.4 BUN/Creat Ratio 18.3 CALC 8.0-36.0 Calcium 10.1 mg/dL 8.6-10.2 Total Protein 8.1 g/dL 6.4-8.3 Albumin 4.2 g/dL 3.8-5.5 Globulin 3.9 g/dL 2.0-4.8 A/G Ratio 1.1 CALC 0.6-2.3 Alk. Phosphatase 91 U/L 30-110 Alt (SGPT) 8 U/L 7-35 Ast (Sgot) 14 U/L 5-34 Total Bilirubin 0.3 mg/dL 0.2-1.3 GFR Non- >60 ml/min/1.73m^ >=60 GFR >60 ml/min/1.73m^ >=60 Ua - Micro (Fma) 04/16/2016 Appearance clear Color yellow Glucose, Urine (Fma/CMC/CTX) neg Bilirubin neg Ketones neg SP Grav 1.020 Blood neg PH 6.0 Protein neg Urobil 0.2 Nitrite neg Leukocytes (Fma/CMC/Centrex) neg WBC (a,Centrex) 0 RBC 0-1 Mucus (Fma/CBC/Centrex) 0 /Lpf Epith rare /Lpf Complete Blood Count 04/16/2016 WBC 5.9 x10^3/UL 3.6-9.6 RBC 4.11 x10^6/UL 3.90-5.70 HGB 11.5 g/dL Low 12.1-17.2 7 HCT 36 % 36-50 8 MCV 87.0 fL 82.2-97.4 MCH 28.0 pg 27.6-33.3 MCHC 32.1 g/dL Low 33.0-35.5 RDW 14.7 % High 11.6-13.7 PLT 306 x10^3/UL 150-400 MPV 8.1 fL 7.4-10.4 Gran # 2.0 x10^3/UL 1.5-7.2 Lymph# 3.6 x10^3/UL 0.7-4.9 Harrison# 0.3 x10^3/UL 0.1-0.9 Gran % 31.1 % Low 42.2-75.2 Lymph % 62.2 % High 20.5-51.1 Harrison% 6.7 % 1.7-9.3 Aerobic Bacterial Culture 12/07/2014 Aerobic Bacterial Culture Final report 9, 10 Result 1 See Comment: 9, 11 Laboratory test finding 08/27/2014 Urine Culture Escherichia coli 12 Ua - Micro ([facility]) 08/27/2014 Appearance CLEAR Color YELLOW Glucose, Urine (Fma/CMC/CTX) NEG Bilirubin NEG Ketones NEG SP Grav >=1.030 Blood TRACE-LYSED PH 5.5 Protein NEG Urobil 0.2 Nitrite NEG Leukocytes (Fma/CMC/Centrex) NEG Hyaline - /Lpf Granular - /Lpf WBC (a,Centrex) 4-5 RBC 1-3 Mucus SMALL AMOUNT /Lpf Epith RARE /Lpf Bacteria 1+ /Hpf Amorphous - /Lpf Crystals, Fluid (Fma/CMC/CTX) - Z#Comments - Laboratory test finding 06/03/2014 Lactic Acid 0.6 mmol/L 0.5-2.2 CBC Auto Diff 06/03/2014 White Blood Count 4.7 10^3/uL Low 4.8-10.8 Red Blood Count 3.61 10^6/uL Low 4.0-5.4 Hemoglobin 10.3 g/dL Low 12.0-16.0 Hematocrit 32 % Low 35-47 Mean Corpuscular Volume 88 fL 80-97 Mean Corpuscular Hemoglobin 29 pg 27-31 Mean Corpuscular HGB Conc 33 g/dL 31-36 Red Cell Distribution Width 15 % 10.5-15 Platelet Count 399 10^3/uL 150-450 Mean Platelet Volume 8 um3 7.4-10.4 Abs Neutrophils 2.3 10^3/uL 1.5-7.7 Abs Lymphocytes 2.0 10^3/uL 1.0-4.8 Abs Monocytes 0.3 10^3/uL 0-0.8 Abs Eosinophils 0.1 10^3/uL 0-0.6 Abs Basophils 0 10^3/uL 0-0.2 Abs Nucleated RBC 0 10^3/uL Granulocyte % 48.4 % 38-83 Lymphocyte % 42.3 % 25-47 Monocyte % 7.2 % 1-9 Eosinophil % 1.1 % 0-6 Basophil % 1.0 % 0-2 Nucleated Red Blood Cells % 0.1 Laboratory test finding 06/03/2014 B Type Natriuretic 38 pg/mL 13 Peptide Comp Metabolic Panel 06/03/2014 Sodium 132 mmol/L Low 133-145 Potassium 3.9 mmol/L 3.5-5.0 Chloride 102 mmol/L 101-111 Co2 Carbon Dioxide 24 mmol/L 22-32 Anion Gap 6 mmol/L 2-11 Glucose 86 mg/dL 70-100 Blood Urea Nitrogen 11 mg/dL 6-24 Creatinine 0.62 mg/dL 0.51-0.95 BUN/Creatinine Ratio 17.7 8-20 Calcium 9.8 mg/dL 8.6-10.3 Total Protein 8.2 g/dL 6.4-8.9 Albumin 4.0 g/dL 3.2-5.2 Globulin 4.2 g/dL High 2-4 Albumin/Globulin Ratio 1.0 1-3 Total Bilirubin 0.40 mg/dL 0.2-1.0 Alkaline Phosphatase 73 U/L 34-104 Alt 18 U/L 7-52 Ast 17 U/L 13-39 Egfr Non- 98.9 >60 Egfr 127.1 >60 14 Laboratory test finding 06/03/2014 Creatine Kinase 50 U/L 10-223 CKMB 06/03/2014 CKMB ng/mL 0.4 ng/mL Low 0.6-6.3 Laboratory test finding 06/03/2014 Troponin I 0.00 ng/mL <0.03 15 Urinalysis Profile 05/07/2014 Urine Color Yellow Urine Appearance Clear Urine Specific [place] 1.024 1.010-1.030 Urine pH 5.0 5-9 Urine Urobilinogen Negative Negative Urine Ketones 1+ Negative Urine Protein Negative Negative Urine Leukocytes Negative Negative Urine Blood Negative Negative Urine Nitrite Negative Negative Urine Bilirubin Negative Negative Urine Glucose Negative Negative CBC Auto Diff 05/07/2014 White Blood Count 3.6 10^3/uL Low 4.8-10.8 Red Blood Count 3.99 10^6/uL Low 4.0-5.4 Hemoglobin 11.3 g/dL Low 12.0-16.0 Hematocrit 35 % 35-47 Mean Corpuscular Volume 88 fL 80-97 Mean Corpuscular Hemoglobin 28 pg 27-31 Mean Corpuscular HGB Conc 32 g/dL 31-36 Red Cell Distribution Width 15 % 10.5-15 Platelet Count 205 10^3/uL 150-450 Mean Platelet Volume 9 um3 7.4-10.4 Abs Neutrophils 1.7 10^3/uL 1.5-7.7 Abs Lymphocytes 1.6 10^3/uL 1.0-4.8 Abs Monocytes 0.2 10^3/uL 0-0.8 Abs Eosinophils 0 10^3/uL 0-0.6 Abs Basophils 0 10^3/uL 0-0.2 Abs Nucleated RBC 0.01 10^3/uL Granulocyte % 47.6 % 38-83 Lymphocyte % 46.2 % 25-47 Monocyte % 5.2 % 1-9 Eosinophil % 0.1 % 0-6 Basophil % 0.9 % 0-2 Nucleated Red Blood Cells % 0.4 Comp Metabolic Panel 05/07/2014 Sodium 134 mmol/L 133-145 Potassium 3.4 mmol/L Low 3.5-5.0 Chloride 103 mmol/L 101-111 Co2 Carbon Dioxide 22 mmol/L 22-32 Anion Gap 9 mmol/L 2-11 Glucose 90 mg/dL 70-100 Blood Urea Nitrogen 15 mg/dL 6-24 Creatinine 0.66 mg/dL 0.51-0.95 BUN/Creatinine Ratio 22.7 High 8-20 Calcium 9.5 mg/dL 8.6-10.3 Total Protein 8.1 g/dL 6.4-8.9 Albumin 4.2 g/dL 3.2-5.2 Globulin 3.9 g/dL 2-4 Albumin/Globulin Ratio 1.1 1-3 Total Bilirubin 0.40 mg/dL 0.2-1.0 Alkaline Phosphatase 67 U/L 34-104 Alt 16 U/L 7-52 Ast 22 U/L 13-39 Egfr Non- 92.0 >60 Egfr 118.3 >60 16 Laboratory test finding 05/07/2014 Lipase 5 U/L Low 11.0-82.0 C Reactive Protein 7.25 mg/L High < 5.00 17 Clotest 04/09/2014 Clotest (SEE NOTE) 18 CBC Auto Diff 03/10/2014 White Blood Count 4.9 10^3/uL 4.8-10.8 19 Red Blood Count 3.96 10^6/uL Low 4.0-5.4 19 Hemoglobin 11.2 g/dL Low 12.0-16.0 19 Hematocrit 35 % 35-47 19 Mean Corpuscular Volume 88 fL 80-97 19 Mean Corpuscular Hemoglobin 28 pg 27-31 19 Mean Corpuscular HGB Conc 32 g/dL 31-36 19 Red Cell Distribution Width 14 % 10.5-15 19 Platelet Count 248 10^3/uL 150-450 19 Mean Platelet Volume 9 um3 7.4-10.4 19 Abs Neutrophils 1.6 10^3/uL 1.5-7.7 19 Abs Lymphocytes 2.9 10^3/uL 1.0-4.8 19 Abs Monocytes 0.2 10^3/uL 0-0.8 19 Abs Eosinophils 0.1 10^3/uL 0-0.6 19 Abs Basophils 0 10^3/uL 0-0.2 19 Abs Nucleated RBC 0 10^3/uL 19 Granulocyte % 32.2 % Low 38-83 19 Lymphocyte % 60.3 % High 25-47 19 Monocyte % 4.5 % 1-9 19 Eosinophil % 2.3 % 0-6 19 Basophil % 0.7 % 0-2 19 Nucleated Red Blood Cells % 0.1 19 Comp Metabolic Panel 03/10/2014 Sodium 137 mmol/L 133-145 19 Potassium 3.6 mmol/L 3.5-5.0 19 Chloride 105 mmol/L 101-111 19 Co2 Carbon Dioxide 26 mmol/L 22-32 19 Anion Gap 6 mmol/L 2-11 19 Glucose 80 mg/dL 70-100 19 Blood Urea Nitrogen 21 mg/dL 6-24 19 Creatinine 0.60 mg/dL 0.51-0.95 19 BUN/Creatinine Ratio 35.0 High 8-20 19 Calcium 9.6 mg/dL 8.6-10.3 19 Total Protein 8.0 g/dL 6.4-8.9 19 Albumin 4.0 g/dL 3.2-5.2 19 Globulin 4.0 g/dL 2-4 19 Albumin/Globulin Ratio 1.0 1-3 19 Total Bilirubin 0.30 mg/dL 0.2-1.0 19 Alkaline Phosphatase 66 U/L 34-104 19 Alt 10 U/L 7-52 19 Ast 15 U/L 13-39 19 Egfr Non- 102.7 >60 19 Egfr 132.1 >60 19, 20 Ua - Micro (Fma) 12/24/2013 Appearance CLEAR Color YELLOW Glucose, Urine (Fma/CMC/CTX) NEGATIVE Bilirubin NEGATIVE Ketones NEGATIVE SP Grav 1.020 Blood SMALL PH 6.5 Protein NEGATIVE Urobil 0.2 Nitrite NEGATIVE Leukocytes (Fma/CMC/Centrex) SMALL Hyaline - /Lpf Granular - /Lpf WBC (Fma,Centrex) 18-24 RBC 3-6 Mucus (Fma/CBC/Centrex) SM AMT /Lpf Epith FEW /Lpf Bacteria 3+ /Hpf Amorphous (Fma/CMC/Centrex) - /Lpf Crystals, Fluid (Fma/CMC/CTX) - Z#Comments - Urine Culture And Sensitivities 12/24/2013 Urine Culture (SEE NOTE) 21 , 22 Urine Culture And Sensitivities 12/24/2013 Urine Culture (SEE NOTE) 23 Influenza A&B-fma 12/24/2013 Influenza A NEGATIVE Influenza B NEGATIVE CBC Auto Diff 12/24/2013 White Blood Count 7.6 10^3/uL 4.8-10.8 Red Blood Count 3.94 10^6/uL Low 4.0-5.4 Hemoglobin 11.1 g/dL Low 12.0-16.0 Hematocrit 34 % Low 35-47 Mean Corpuscular Volume 85 fL 80-97 Mean Corpuscular Hemoglobin 28 pg 27-31 Mean Corpuscular HGB Conc 33 g/dL 31-36 Red Cell Distribution Width 15 % 10.5-15 Platelet Count 255 10^3/uL 150-450 Mean Platelet Volume 8 um3 7.4-10.4 Abs Neutrophils 3.4 10^3/uL 1.5-7.7 Abs Lymphocytes 3.7 10^3/uL 1.0-4.8 Abs Monocytes 0.4 10^3/uL 0-0.8 Abs Eosinophils 0 10^3/uL 0-0.6 Abs Basophils 0 10^3/uL 0-0.2 Abs Nucleated RBC 0.02 10^3/uL Urinalysis Profile 12/24/2013 Urine Color Yellow Urine Appearance Cloudy Urine Specific [place] 1.016 1.010-1.030 Urine pH 5.0 5-9 Urine Urobilinogen Negative Negative Urine Ketones Negative Negative Urine Protein Negative Negative Urine Leukocytes Trace Negative Urine Blood 1+ Negative Urine Nitrite Negative Negative Urine Bilirubin Negative Negative Urine Glucose Negative Negative Urine White Blood Cell 2+(11-20/hpf) Absent Urine Red Blood Cell 2+(6-10/hpf) Absent Urine Bacteria 3+ Absent Urine Squamous Epithelial Cell Present Absent Laboratory test finding 12/24/2013 Lactic Acid 0.9 mmol/L 0.5-2.2 Comp Metabolic Panel 12/24/2013 Sodium 136 mmol/L 133-145 Potassium 3.3 mmol/L Low 3.7-5.6 Chloride 103 mmol/L 101-111 Co2 Carbon Dioxide 25 mmol/L 22-32 Anion Gap 8 mmol/L 2-11 Glucose 76 mg/dL 70-100 Blood Urea Nitrogen 14 mg/dL 6-24 Creatinine 0.63 mg/dL 0.51-0.95 BUN/Creatinine Ratio 22.2 High 8-20 Calcium 9.8 mg/dL 8.6-10.3 Total Protein 8.1 g/dL 6.4-8.9 Albumin 4.0 g/dL 3.2-5.2 Globulin 4.1 g/dL High 2-4 Albumin/Globulin Ratio 1.0 1-3 Total Bilirubin 0.40 mg/dL 0.2-1.0 Alkaline Phosphatase 70 U/L 34-104 Alt 8 U/L 7-52 Ast 11 U/L Low 13-39 Egfr Non- 97.1 >60 Egfr 124.8 >60 24 Inr/Protime 12/24/2013 Inr 1.07 High 0.85-1.06 Manual Differential 12/24/2013 Neutrophil % 47 % 38-83 Lymphocytes % 45 % 25-47 Monocytes % 4 % 0-13 Reactive Lymph % 4 % 0-6 Hypochromasia 1+ Laboratory test finding 12/24/2013 Amylase 26 U/L Low 29-103 Lipase 3 U/L Low 11.0-82.0 Troponin I 0.00 ng/mL <0.03 25 C Reactive Protein 40.82 mg/L High < 5.00 26 Rapid Influenza A B 12/22/2013 Rapid Influenza A B (SEE NOTE) 27 Antigen Antigen CBC Auto Diff 12/22/2013 White Blood Count 7.5 10^3/uL 4.8-10.8 Red Blood Count 3.82 10^6/uL Low 4.0-5.4 Hemoglobin 10.8 g/dL Low 12.0-16.0 Hematocrit 33 % Low 35-47 Mean Corpuscular Volume 86 fL 80-97 Mean Corpuscular Hemoglobin 28 pg 27-31 Mean Corpuscular HGB Conc 33 g/dL 31-36 Red Cell Distribution Width 15 % 10.5-15 Platelet Count 249 10^3/uL 150-450 Mean Platelet Volume 8 um3 7.4-10.4 Abs Neutrophils 4.4 10^3/uL 1.5-7.7 Abs Lymphocytes 2.6 10^3/uL 1.0-4.8 Abs Monocytes 0.4 10^3/uL 0-0.8 Abs Eosinophils 0.1 10^3/uL 0-0.6 Abs Basophils 0 10^3/uL 0-0.2 Abs Nucleated RBC 0 10^3/uL Granulocyte % 59.1 % 38-83 Lymphocyte % 34.3 % 25-47 Monocyte % 5.0 % 1-9 Eosinophil % 1.3 % 0-6 Basophil % 0.3 % 0-2 Nucleated Red Blood Cells % 0 Comp Metabolic Panel 12/22/2013 Sodium 136 mmol/L 133-145 Potassium 3.8 mmol/L 3.7-5.6 Chloride 105 mmol/L 101-111 Co2 Carbon Dioxide 25 mmol/L 22-32 Anion Gap 6 mmol/L 2-11 Glucose 93 mg/dL 70-100 Blood Urea Nitrogen 16 mg/dL 6-24 Creatinine 0.67 mg/dL 0.51-0.95 BUN/Creatinine Ratio 23.9 High 8-20 Calcium 9.2 mg/dL 8.6-10.3 Total Protein 7.4 g/dL 6.4-8.9 Albumin 3.9 g/dL 3.2-5.2 Globulin 3.5 g/dL 2-4 Albumin/Globulin Ratio 1.1 1-3 Total Bilirubin 0.40 mg/dL 0.2-1.0 Alkaline Phosphatase 78 U/L 34-104 Alt 11 U/L 7-52 Ast 15 U/L 13-39 Egfr Non- 90.4 >60 Egfr 116.3 >60 28 CBC Electronic (a) 11/16/2013 WBC 4.5 3.6-9.6 29 RBC 3.87 Low 3.90-5.70 29 Hemoglobin (Fma/CMC/CTX) 11.3 g/dL Low 12.1 - 17.2 29 Hematocrit (Fma/CMC/CTX) 33.6 % Low 36.1 - 50.3 29 Platelets 241 10^3/ul 150-400 29 Lymph% 53.5 % High 17.0-48.0 29 Mixed% 7.4 29 Neutrophils % 39.1 29 Mean Corpuscular Vol 87 82.2-97.4 29 Mean Corpuscular Hemoglobin 29.2 27.6-33.3 29 Mean Corpuscular Hemo Concen 33.7 32.0-36.0 29 RDW 14.2 High 11.6-13.7 29 Mean Platelet Volume 7.4 5.5-11.0 29 Laboratory test 11/16/2013 Sed Rate (Fma/CMC/Centrex) 29MM 29 finding Laboratory test 11/16/2013 Antinuclear Abs, Ifa See patterns 30, 31 finding C-Reactive Protein 2.5 mg/L 0.0-5.0 30 Lyme Igg/M W/RFX West 11/16/2013 Lyme IgG/IgM Ab <0.91 ISR 0.00-0.90 30, 32 Lyme Disease Ab, Quant, IgM <0.80 index 0.00-0.79 30, 33 Laboratory test 11/16/2013 Rheumatoid Arth 685.0 IU/mL High 0.0-13.9 30, 34 finding Factor Alberto Pattern & 11/16/2013 Homogeneous Pattern 1:80 30 Titer Nucleolar Pattern 1:160 High 30 Note: SEE NOTE 30, 35 Laboratory test finding 11/16/2013 Uric Acid 2.7 mg/dL 2.5-9.2 CBC Auto Diff 07/28/2013 White Blood Count 9.7 10^3/uL 4.8-10.8 Red Blood Count 3.70 10^6/uL Low 4.0-5.4 Hemoglobin 10.3 g/dL Low 12.0-16.0 Hematocrit 32 % Low 35-47 Mean Corpuscular Volume 85 fL 80-97 Mean Corpuscular Hemoglobin 28 pg 27-31 Mean Corpuscular HGB Conc 33 g/dL 31-36 Red Cell Distribution Width 15 % 10.5-15 Platelet Count 298 10^3/uL 150-450 Mean Platelet Volume 8 um3 7.4-10.4 Abs Neutrophils 7.3 10^3/uL 1.5-7.7 Abs Lymphocytes 1.9 10^3/uL 1.0-4.8 Abs Monocytes 0.4 10^3/uL 0-0.8 Abs Eosinophils 0 10^3/uL 0-0.6 Abs Basophils 0.1 10^3/uL 0-0.2 Abs Nucleated RBC 0.01 10^3/uL Granulocyte % 75.2 % 38-83 Lymphocyte % 19.8 % Low 25-47 Monocyte % 4.4 % 1-9 Eosinophil % 0.1 % 0-6 Basophil % 0.5 % 0-2 Nucleated Red Blood Cells % 0.1 Comp Metabolic Panel 07/28/2013 Sodium 136 mmol/L 133-145 Potassium 3.1 mmol/L Low 3.7-5.6 Chloride 101 mmol/L 101-111 Co2 Carbon Dioxide 25 mmol/L 22-32 Anion Gap 10 mmol/L 2-11 Glucose 84 mg/dL 70-100 Blood Urea Nitrogen 7 mg/dL 6-24 Creatinine 0.62 mg/dL 0.51-0.95 BUN/Creatinine Ratio 11.3 8-20 Calcium 9.6 mg/dL 8.6-10.3 Total Protein 8.3 g/dL 6.4-8.9 Albumin 4.0 g/dL 3.2-5.2 Globulin 4.3 g/dL High 2-4 Albumin/Globulin Ratio 0.9 Low 1-3 Total Bilirubin 0.50 mg/dL 0.2-1.0 Alkaline Phosphatase 72 U/L 34-104 Alt 4 U/L Low 7-52 Ast 11 U/L Low 13-39 Egfr Non- 98.9 >60 Egfr 127.1 >60 36 Laboratory test finding 07/28/2013 Troponin I 0.00 ng/mL <0.03 37 Laboratory test finding 10/29/2012 Urine Culture Escherichia coli 38 Ua - Micro ([facility]) 10/29/2012 Appearance clear Color yellow Glucose - Bilirubin - Ketones - SP Grav >=1.030 Blood trace(lysed) PH 5.5 Protein - Urobil 0.2 Nitrite - Leukocytes (Fma/CMC/Centrex) small Hyaline - /Lpf Granular - /Lpf WBC (Fma,Centrex) 15-20 RBC 0-1 Mucus sm amt /Lpf Epith few /Lpf Bacteria 2+ /Hpf Amorphous - /Lpf Crystals, Fluid (Fma/CMC/CTX) - Laboratory test 10/29/2012 Thin Prep SEE NOTE 39 finding W/HPV(Lsil/BRIANNA/Asc) Laboratory test 05/14/2012 Urine Culture Escherichia coli 40 finding Ua - Micro ([facility]) 05/14/2012 Appearance cloudy Color yellow Glucose neg Bilirubin neg Ketones 15mg/dl SP Grav >=1.030 Blood large PH 6.0 Protein 1+ Urobil 1.0 Nitrite pos Leukocytes (Fma/CMC/Centrex) mod Hyaline - /Lpf Granular - /Lpf WBC (Fma,Centrex) >100 RBC >100 Mucus - /Lpf Epith rare /Lpf Bacteria 3+ /Hpf Amorphous - /Lpf Crystals, Fluid (Fma/CMC/CTX) - Z#Comments - Influenza A&B 03/24/2012 Influenza A NEGATIVE Influenza B NEGATIVE Ua - Micro ([facility]) 11/07/2011 Appearance CLOUDY Color YELLOW Glucose, Urine (Fma/CMC/CTX) NEG Bilirubin NEG Ketones NEG SP Grav 1.020 Blood MODERATE PH 5.5 Protein NEG Urobil 0.2 Nitrite NEG Leukocytes (Fma/CMC/Centrex) LARGE Hyaline - /Lpf Granular - /Lpf WBC (Fma,Centrex) 30-40 High Some Clumped RBC 2-5 Mucus (Fma/CBC/Centrex) - /Lpf Epith MODERATE /Lpf Bacteria 1+ /Hpf Amorphous (Fma/CMC/Centrex) SMALL AMOUNT /Lpf Crystals, Fluid (Fma/CMC/CTX) - Z#Comments NOT CLEAN CATCH Ua - Micro ([facility]) 02/27/2010 Appearance CLEAR Color YELLOW Glucose NEG Bilirubin ICTO=NEG Ketones NEG SP Grav >=1.030 Blood MODERATE PH 5.5 Protein SSA=NEG Urobil 1.0 Nitrite NEG Leukocytes (Fma/CMC/Centrex) NEG WBC (Fma,Centrex) 2-4 RBC 3-5 Mucus SM AMT /Lpf Epith FEW /Lpf Bacteria TRACE /Hpf Amorphous - /Lpf Crystals, Fluid (Fma/CMC/CTX) - Z#Comments - Ua - Micro ([facility]) 02/11/2009 Appearance CLEAR Color YELLOW Glucose NEG Bilirubin NEG Ketones NEG SP Grav 1.020 Blood MOD PH 8.5 Protein NEG Urobil 0.2 Nitrite NEG Leukocytes (Fma/CMC/Centrex) SMALL Hyaline - /Lpf Granular - /Lpf WBC (Fma,Centrex) 25-30 RBC 25-30 Mucus SM AMT /Lpf Epith OCC /Lpf Bacteria 1+ /Hpf Amorphous - /Lpf Crystals, Fluid (Fma/CMC/CTX) - Z#Comments - Laboratory test finding 11/12/2008 Stool For Blood NEGATIVE Negative CBC With Manual Diff Stat 11/12/2008 White Blood Count 4.9 CUMM 4.8-10.8 Red Cell Count 3.87 CUMM Low 4.2-5.4 Hemoglobin 11.4 g/dL Low 12.0-16.0 Hematocrit 35 % 35-47 Mean Corpuscular Volume 89 um3 79-97 Mean Corpuscular Hemoglob 30 pg 27-31 Mean Corpuscular HGB Cone 33 g/dL 32-36 Redcell Distribution WDTH 15 % 10.5-15 Platelet Count 258 CUMM 150-450 Mean Platelet Volume 8.2 um3 7.4-10.4 Polysegmented Neutrophil 40 % 38-83 Band Neutrophil 1 % 0-8 Lymphocyte 52 % High 25-47 Monocyte 6 % 0-13 Eosenophil 1 % 0-6 Absolute Neutrophil Count 2.0 Anisocytosis 1+ Poikilocytosis 1+ Hypochromasia 2+ Target Cells 1+ Comp Stat 11/12/2008 Sodium 138 mmol/L 135-145 Potassium 3.5 mmol/L 3.5-5.0 Chloride 103 mmol/L 101-111 Co2 (Carbon Dioxide) 27.0 mmol/L 22-32 Anion Gap 8.0 mmol/L 2-11 41 Glucose 95 mg/dL 70-100 42 BUN 17 mg/dL 6-24 Creatinine 0.50 mg/dL 0.50-1.40 One Over Creatinine 2.00 BUN/Creatinine Ratio 34.0 High 8-20 Calcium 9.9 mg/dL 8.1-9.9 43 Total Protein 8.0 GM/DL 6.2-8.1 Albumin 4.2 GM/DL 3.6-5.4 Globulin 3.8 GM/DL 2-4 Albumin/Globulin Ratio 1.1 1-3 Bilirubin Total 0.7 mg/dL 0.4-1.5 44 Alkaline Phosphatase 74 U/L 30-110 Alt (SGPT) 29 U/L 14-54 Ast (Sgot) 33 U/L 12-42 eGFR Non- 137.2 > 60 eGFR 166.0 > 60 45 Urinalysis Stat 11/12/2008 Ua Color YELLOW Appearance-Urine CLEAR Specific [place]-Ur 1.030 1.010-1.030 Esterase-Urine NEGATIVE Negative Nitrite NEGATIVE Negative Znloswswyapp-Li-JHI NEGATIVE Negative Protein-Urine NEGATIVE Negative PH-Urine 5.0 5-9 Blood-Urine NEGATIVE Negative Ketones-Urine NEGATIVE Negative Bilirubin-Ur NEGATIVE Negative Glucose-Urine NEGATIVE Negative Laboratory test finding 08/16/2008 Amylase 69 U/L 30-125 Lipase 22 U/L 22-51 CBC With Manual Diff 08/16/2008 White Blood Count 4.7 CUMM Low 4.8-10.8 Red Cell Count 4.06 CUMM Low 4.2-5.4 Hemoglobin 11.9 g/dL Low 12.0-16.0 Hematocrit 35 % 35-47 Mean Corpuscular Volume 87 um3 79-97 Mean Corpuscular Hemoglob 29 pg 27-31 Mean Corpuscular HGB Cone 34 g/dL 32-36 Redcell Distribution WDTH 13 % 10.5-15 Platelet Count 221 CUMM 150-450 Mean Platelet Volume 9.4 um3 7.4-10.4 Polysegmented Neutrophil 28 % Low 38-83 Lymphocyte 57 % High 25-47 Monocyte 9 % 0-13 Eosenophil 6 % 0-6 Absolute Neutrophil Count 1.3 RBC Morphology NORMAL Platelet Evaluation FEW LARGE Vad 08/16/2008 Vad Final NONREACTIVE Nonreactive 46 Comp Metabolic Panel 08/16/2008 Sodium 139 mmol/L 135-145 Potassium 4.0 mmol/L 3.5-5.0 Chloride 105 mmol/L 101-111 Co2 (Carbon Dioxide) 28.0 mmol/L 22-32 Anion Gap 6.0 mmol/L 2-11 47 Glucose 86 mg/dL 70-100 48 BUN 15 mg/dL 6-24 Creatinine 0.60 mg/dL 0.50-1.40 One Over Creatinine 1.60 BUN/Creatinine Ratio 25.0 High 8-20 Calcium 9.9 mg/dL 8.1-9.9 49 Total Protein 7.9 GM/DL 6.2-8.1 Albumin 4.4 GM/DL 3.6-5.4 Globulin 3.5 GM/DL 2-4 Albumin/Globulin Ratio 1.3 1-3 Bilirubin Total 0.8 mg/dL 0.4-1.5 50 Alkaline Phosphatase 76 U/L 30-110 Alt (SGPT) 13 U/L Low 14-54 Ast (Sgot) 17 U/L 12-42 Laboratory test finding 02/09/2008 Sed Rate (Fma/CMC/Centrex) 14mm CBC ([facility]) 02/09/2008 WBC 4.6 3.6-9.6 RBC 3.82 Low 3.90-5.70 Hemoglobin (Fma/CMC/CTX) 11.1 g/dL Low 12.1 - 17.2 Hematocrit (Fma/CMC/CTX) 34.5 % Low 36.1 - 50.3 Mean Corpuscular Vol 90.3 82.2-97.4 Mean Corpuscular Hemaglobin 29.1 27.6-33.3 Mean Corpuscular Hemo Concen 32.2 Low 33.0-36.0 Platelets 221 10^3/ul 150-400 Lymph% 69.7 High 20.5-51.1 Mixed% 4.1 Neutrophils % 26.2 RDW 14.1 High 11.6-13.7 Mean Platelet Volume 10.3 7.4-10.4 Comprehensive Metabolic Prof 02/09/2008 Albumin 4.4 g/dL 3.8-5.5 51 Alk. Phos. 59 U/L 30-110 51 Alt (SGPT) 25 U/L 7-35 51 Ast (Sgot) 33 U/L 5-34 51 BUN 18 mg/dL 6-26 51 Calcium 9.8 mg/dL 8.6-10.2 51 Chloride 99 mEq/L 94-112 51 Creatinine 0.6 mg/dL 0.6-1.4 51 Carbon Dioxide 30 mEq/L 21-32 51 Glucose 78 mg/dL 70-105 51 Sodium 137 mEq/L 134-149 51 Total Bilirubin 0.3 mg/dL 0.2-1.3 51 Total Protein 7.7 g/dL 6.3-8.1 51 Potassium 3.8 mEq/L 3.6-5.5 51 Globulin 3.3 g/dL 2.0-4.8 51 A/G Ratio 1.3 Calc 0.6-2.2 51 BUN/Creat Ratio 27.9 Calc 8.0-36.0 51 Laboratory test finding 02/09/2008 Free T4 1.04 ng/dL 0.75-1.54 51 TSH 1.92 mIU/L 0.50-6.00 51 Laboratory test finding 02/09/2008 T Transglutaminase Iga 1 U/mL 0-3 52 Gliadin Igg/Iga AB 02/09/2008 Deamidated Gliadin Abs, IgA 6.6 U/mL 0.0- 10.0 Deamidated Gliadin Abs, IgG 0.8 U/mL 0.0-10.0 1 >100 to <200 pg/mL: likely compensated congestive heart failure (CHF) 200 to 400 pg/mL: likely moderate CHF >400 pg/mL: likely moderate to severe CHF 2 [facility] Severe Sepsis and Septic Shock Management Bundle Measure requires all lactic acids initially measuring >2.0 mmol/L be repeated. 3 Because ethnic data is not always readily available, this report includes an eGFR for both -Americans and non- Americans. The National Kidney Disease Education Program (NKDEP) does not endorse the use of the MDRD equation for patients that are not between the ages of 18 and 70, are , have extremes of body size, muscle mass, or nutritional status, or are non- or non-. According to the National Kidney Foundation, irrespective of diagnosis, the stage of the disease is based on the level of kidney function: Stage Description GFR(mL/min/1.73 m(2)) 1 Kidney damage with normal or decreased GFR 90 2 Kidney damage with mild decrease in GFR 60-89 3 Moderate decrease in GFR 30-59 4 Severe decrease in GFR 15-29 5 Kidney failure <15 (or dialysis) 4 Result TnIDx:1.54 Called to [id number] at: 12:57:35 by:[id number] Read back by: [id number] 5 Comment: posterior left lower leg blister 6 SEE RESULT BELOW Name: ALIRIO CONWAY : [address]: Lázaro Hunter MD Acct: [id number] Unit: [id number] AGE: 61 Location: ED Re08/15/16 SEX: F Status: REG ER SPEC: [id number] BREANNE: 08/15/16-1704 [facility] DR: Leola RIOS REQ: [id number] RECD: 08/15/16 STATUS: COMP [facility] DR: [facility] Subhash Monroe MD _ SOURCE: LEG,LEFT SPDESC: ORDERED: Culture Stain COMMENTS: Comment: posterior left lower leg blister Procedure Result Reported Site Wound/Misc Gram Stain Final 08/16/16- 0740 ML No Neutrophils Observed 2+ Epithelial Cells 2+ Nucleated Cells No Organisms Seen Wound/Misc Culture Final 08/17/16- 0944 ML No Growth Day 2 * ML - MAIN LAB ([facility]) . END OF REPORT * ML=Testing performed at Main Lab DEPARTMENT OF PATHOLOGY, [address] [place] [address] Stu Trimble M.D. Director [facility] # [id number] RESULTS VERIFIED BY REPEAT ANALYSIS 8 RESULTS VERIFIED BY REPEAT ANALYSIS 9 SRC:blister right foot 1 c ulture swab 10 Source of Specimen: blister right foot 1 c 11 Source of Specimen: blister right foot 1 c No growth in 36 - 48 hours. 12 Escherichia coli >100,000 col/ml . URINE CULTURE ORGANISM 1 Escherichia coli ORGANISM 1 >100,000 col/ml Ampicillin >=32 Resistant Ampicillin/sulbactam 16 Intermediate Cefazolin <=4 Susceptible Cefoxitin 8 Susceptible Ciprofloxacin >=4 Resistant Ertapenem <=0.5 Susceptible Gentamicin >=16 Resistant Imipenem <=0.25 Susceptible Levofloxacin >=8 Resistant Nitrofurantoin <=16 Susceptible Piperacillin/tazobactam <=4 Susceptible Tobramycin 4 Susceptible Trimethoprim/Sulfa >=320 Resistant 13 >100 to <200 pg/mL: likely compensated congestive heart failure (CHF) 200 to 400 pg/mL: likely moderate CHF >400 pg/mL: likely moderate to severe CHF [place] [facility] 14 Because ethnic data is not always readily available, this report includes an eGFR for both -Americans and non- Americans. The National Kidney Disease Education Program (NKDEP) does not endorse the use of the MDRD equation for patients that are not between the ages of 18 and 70, are , have extremes of body size, muscle mass, or nutritional status, or are non- or non-. According to the National Kidney Foundation, irrespective of diagnosis, the stage of the disease is based on the level of kidney function: Stage Description GFR(mL/min/1.73 m(2)) 1 Kidney damage with normal or decreased GFR 90 2 Kidney damage with mild decrease in GFR 60-89 3 Moderate decrease in GFR 30-59 4 Severe decrease in GFR 15-29 5 Kidney failure <15 (or dialysis) 15 Reference Range and Interpretation: TnI (ng/mL) Interpretation Less Than 0.03 ng/mL Not supportive of diagnosis of [place] 0.03 - 0.50 ng/mL Indeterminate: suggest serial studies if clinically indicated. Greater than 0.5 ng/mL Consistent with diagnosis of [place] 16 Because ethnic data is not always readily available, this report includes an eGFR for both -Americans and non- Americans. The National Kidney Disease Education Program (NKDEP) does not endorse the use of the MDRD equation for patients that are not between the ages of 18 and 70, are , have extremes of body size, muscle mass, or nutritional status, or are non- or non-. According to the National Kidney Foundation, irrespective of diagnosis, the stage of the disease is based on the level of kidney function: Stage Description GFR(mL/min/1.73 m(2)) 1 Kidney damage with normal or decreased GFR 90 2 Kidney damage with mild decrease in GFR 60-89 3 Moderate decrease in GFR 30-59 4 Severe decrease in GFR 15-29 5 Kidney failure <15 (or dialysis) 17 Acute inflammation: >10.00 18 RUN DATE: 04/10/14 [facility] LIVE PAGE 1 RUN TIME: [address] [place] [address] Specimen Inquiry Name: ALIRIO CONWAY : [address]: Kana Mejia MD Acct: [id number] Unit: [id number] AGE: 58 Location: ENDO Re04/09/14 SEX: F Status: REG REF SPEC: [id number] BREANNE: 04/09/14-1652 [facility] DR: Kana Mejia MD REQ: [id number] RECD: 04/09/14 STATUS: LYDIA HOBSON DR: Subhash Monroe MD _ SOURCE: GAS ANTRUM SPDESC: ORDERED: Clotest Procedure Result Verified Site Clotest Final 04/10/14- 733 ML Clotest Negative END OF REPORT * ML=Testing performed at Main Lab DEPARTMENT OF PATHOLOGY, [address] [place] [address] Stu Trimble M.D. Director [facility] # [id number] 03/23 Because ethnic data is not always readily available, this report includes an eGFR for both -Americans and non- Americans. The National Kidney Disease Education Program (NKDEP) does not endorse the use of the MDRD equation for patients that are not between the ages of 18 and 70, are , have extremes of body size, muscle mass, or nutritional status, or are non- or non-. According to the National Kidney Foundation, irrespective of diagnosis, the stage of the disease is based on the level of kidney function: Stage Description GFR(mL/min/1.73 m(2)) 1 Kidney damage with normal or decreased GFR 90 2 Kidney damage with mild decrease in GFR 60-89 3 Moderate decrease in GFR 30-59 4 Severe decrease in GFR 15-29 5 Kidney failure <15 (or dialysis) 21 1 BORTEX 22 RUN DATE: 12/26/13 [facility] LIVE PAGE 1 RUN TIME: [address] [place] [address] Specimen Inquiry Name: ALIRIO CONWAY : [address]: Miguel Washington MD Acct: [id number] Unit: [id number] AGE: 58 Location: [facility] Re12/24/13 SEX: F Status: REG REF SPEC: [id number] BREANNE: 12/24/131144 [facility] DR: Miguel Washington MD REQ: [id number] RECD: 12/24/13 STATUS: COMP _ SOURCE: URINE SPDESC: ORDERED: Urine Culture COMMENTS: 1 BORTEX QUERIES: Medent Number [id number] Procedure Result Verified Site Urine Culture Final 12/26/13- 0849 ML Organism 1 ESCHERICHIA COLI [place] Count >100,000 (Many) CFU/ML 1. ESCHERICHIA COLI M.I.C. RX --------- ------ Ampicillin >=32 R Cefazolin <=4 S Cefepime <=1 S Ceftriaxone <=1 S Ciprofloxacin >=4 R Gentamicin >=16 R Levofloxacin >=8 R Meropenem <=0.25 S Nitrofurantoin <=16 S Tetracycline <=1 S Pipercillin/Tazobactam <=4 S Trimethoprim/Sulfamethoxazole >=320 R Amoxicillin/Clavulanic Acid 4 S Aztreonam <=1 S Contact the Microbiology Department for any additional antibiotic reporting. END OF REPORT * ML=Testing performed at Main Lab DEPARTMENT OF PATHOLOGY, [address] [place] [address] Stu Trimble M.D. Director [facility] # [id number] 23 RUN DATE: 12/26/13 [facility] LIVE PAGE 1 RUN TIME: [address] [place] [address] Specimen Inquiry Name: ALIRIO CONWAY : [address]: Grant Viveros DO Acct: [id number] Unit: [id number] AGE: 58 Location: ED Re12/24/13 SEX: F Status: DEP ER SPEC: [id number] BREANNE: 12/24/[address] [facility] [address]: Grant Viveros DO REQ: [id number] RECD: 12/24/13 STATUS: LYDIA HOBSON DR: Subhash Monroe MD _ SOURCE: URINE SPDESC: ORDERED: Urine Culture QUERIES: Medent Number Procedure Result Verified Site Urine Culture Final 12/26/13- 0906 ML Organism 1 ESCHERICHIA COLI [place] Count >100,000 (Many) CFU/ML 1. ESCHERICHIA COLI M.I.C. RX --------- ------ Ampicillin >=32 R Cefazolin <=4 S Cefepime <=1 S Ceftriaxone <=1 S Ciprofloxacin >=4 R Gentamicin >=16 R Levofloxacin >=8 R Meropenem <=0.25 S Nitrofurantoin <=16 S Tetracycline <=1 S Pipercillin/Tazobactam <=4 S Trimethoprim/Sulfamethoxazole >=320 R Amoxicillin/Clavulanic Acid 4 S Aztreonam <=1 S Contact the Microbiology Department for any additional antibiotic reporting. END OF REPORT * ML=Testing performed at Main Lab DEPARTMENT OF PATHOLOGY, [address] [place] [address] Stu Trimble M.D. Director [facility] # [id number] 24 Because ethnic data is not always readily available, this report includes an eGFR for both -Americans and non- Americans. The National Kidney Disease Education Program (NKDEP) does not endorse the use of the MDRD equation for patients that are not between the ages of 18 and 70, are , have extremes of body size, muscle mass, or nutritional status, or are non- or non-. According to the National Kidney Foundation, irrespective of diagnosis, the stage of the disease is based on the level of kidney function: Stage Description GFR(mL/min/1.73 m(2)) 1 Kidney damage with normal or decreased GFR 90 2 Kidney damage with mild decrease in GFR 60-89 3 Moderate decrease in GFR 30-59 4 Severe decrease in GFR 15-29 5 Kidney failure <15 (or dialysis) 25 Reference Range and Interpretation: TnI (ng/mL) Interpretation Less Than 0.03 ng/mL Not supportive of diagnosis of [place] 0.03 - 0.50 ng/mL Indeterminate: suggest serial studies if clinically indicated. Greater than 0.5 ng/mL Consistent with diagnosis of [place] 26 Acute inflammation: >10.00 27 RUN DATE: 12/22/13 [facility] LIVE PAGE 1 RUN TIME: [address] [place] [address] Specimen Inquiry Name: ALIRIO CONWAY : [address]: Urban Marmolejo MD Acct: [id number] Unit: [id number] AGE: 58 Location: ED Re12/22/13 SEX: F Status: REG ER SPEC: [id number] BREANNE: 12/22/[address] [facility] [address]: Urban Marmolejo MD REQ: [id number] RECD: 12/22/13 STATUS: LYDIA HOBSON DR: Subhash Monroe MD _ SOURCE: [facility]: ORDERED: Rapid Flu A B Procedure Result Verified Site Rapid Influenza A B Antigen Final 12/22/13- 2352 ML Organism 1 Negative Influenza A Organism 2 Negative Influenza B Antigen testing by enzyme immunoassay. Cell culture testing can be performed to confirm negative test results and to assist in detecting other viruses that can produce similar clinical symptoms. Please notify Microbiology Lab if further testing is desired. END OF REPORT * ML=Testing performed at Main Lab DEPARTMENT OF PATHOLOGY, [address] [place] [address] Stu Trimble M.D. Director [facility] # [id number] 28 Because ethnic data is not always readily available, this report includes an eGFR for both -Americans and non- Americans. The National Kidney Disease Education Program (NKDEP) does not endorse the use of the MDRD equation for patients that are not between the ages of 18 and 70, are , have extremes of body size, muscle mass, or nutritional status, or are non- or non-. According to the National Kidney Foundation, irrespective of diagnosis, the stage of the disease is based on the level of kidney function: Stage Description GFR(mL/min/1.73 m(2)) 1 Kidney damage with normal or decreased GFR 90 2 Kidney damage with mild decrease in GFR 60-89 3 Moderate decrease in GFR 30-59 4 Severe decrease in GFR 15-29 5 Kidney failure <15 (or dialysis) 29 RESULTS COMPARABLE WITH PRIOR RESULTS. 30 2 SST; 1 YELLOW TOP 31 Negative <1:80 Borderline 1:80 Positive >1:80 32 Negative <0.91 Equivocal 0.91 - 1.09 Positive >1.09 Please note reference interval change 33 Negative <0.80 Equivocal 0.80 - 1.19 Positive >1.19 IgM levels may peak at 3-6 weeks post infection, then gradually decline. 34 Results confirmed on dilution. 35 A positive ALBERTO result may occur in healthy individuals or be associated with a variety of diseases. See interpre- tation below: Pattern Antigen Detected Suggested Disease Association Homogeneous DNA(ds,ss,), High titers - SLE (Smooth) Histone Speckled Sm, SPRING UPHOLSTERER, SCL-70, SLE,MCTD,Scleroderma,Sjogrens SS-A/SS-B Nucleolar SCL-70, PM-1/SCL High titers Scleroderma Poly- myositis/Scleroderma Overlap Centromere Centromere PSS w/Crest syndrome variable 36 Because ethnic data is not always readily available, this report includes an eGFR for both -Americans and non- Americans. The National Kidney Disease Education Program (NKDEP) does not endorse the use of the MDRD equation for patients that are not between the ages of 18 and 70, are , have extremes of body size, muscle mass, or nutritional status, or are non- or non-. According to the National Kidney Foundation, irrespective of diagnosis, the stage of the disease is based on the level of kidney function: Stage Description GFR(mL/min/1.73 m(2)) 1 Kidney damage with normal or decreased GFR 90 2 Kidney damage with mild decrease in GFR 60-89 3 Moderate decrease in GFR 30-59 4 Severe decrease in GFR 15-29 5 Kidney failure <15 (or dialysis) 37 Reference Range and Interpretation: TnI (ng/mL) Interpretation Less Than 0.03 ng/mL Not supportive of diagnosis of [place] 0.03 - 0.50 ng/mL Indeterminate: suggest serial studies if clinically indicated. Greater than 0.5 ng/mL Consistent with diagnosis of [place] 38 Escherichia coli >100,000 col/ml URINE CULTURE organism 1 Escherichia coli >100,000 col/ml Amikacin <=2 Susceptible Amoxicillin/CA 8 Susceptible Ampicillin >=32 Resistant Aztreonam <=1 Susceptible Cefazolin <=4 Susceptible Cefoxitin <=4 Susceptible Ciprofloxacin >=4 Resistant Ertapenem <=0.5 Susceptible Gentamicin >=16 Resistant Imipenem <=0.25 Susceptible Levofloxacin >=8 Resistant Nitrofurantoin <=16 Susceptible Piperacillin/tazobactam <=4 Susceptible Tobramycin 8 Intermediate Trimethoprim/Sulfa >=320 Resistant 39 [facility] [employer] DEPARTMENT OF PATHOLOGY or Extension 7864 COMBINED HPV / TROUSSEAU CONSULTANT CYTOLOGY REPORT PATIENT: ALIRIO CONWAY : 1955 AGE: 57 Y SEX: F ACCT: [id number] PROCEDURE DATE: 10/29/2012 DATE RECEIVED: 10/30/2012 REQUESTING PROVIDER: TALYA ANDERSEN LOCATION: [facility] [place] Case No. [id number] PATIENT DATA: [id number] SPECIMEN SUBMITTED: * * (HPVII) THIN PREP W/HPV (LSIL/ASC/BRIANNA) * * ENDOCERVICAL RELEVANT HISTORY: Menopause: Y Contraceptive: TUBAL LIGATION 1979 Prev.normal: 2007 OR 2008 Comment: POST MENOPAUSAL SPECIMEN ADEQUACY SATISFACTORY FOR EVALUATION, ENDOCERVICAL TRANSFORMATION ZONE COMPONENT PRESENT GENERAL CATEGORIZATION EPITHELIAL CELL ABNORMALITY: SEE "INTERPRETATION/RESULT" INTERPRETATION/ RESULT ATYPICAL SQUAMOUS CELLS OF UNDETERMINED SIGNIFICANCE. ICD-9 DIAGNOSIS CODE 795.01 RECOMMENDATIONS See Related Reference Test Result below. Refer to the corresponding web sites for 2012 updated general recommendation guidelines of U.S. preventive service task force for cervical cancer screening, and www.asccp.org//gcvjsqwsq4501. COMMENTS Thin Prep Pap tests are examined with an FDA approved location-guidance system. RELATED REFERENCE TEST RESULT: HPV: "HIGH RISK" Source: CERVICAL Result: POSITIVE Test Method: HC2 Performing Location: METHODOLOGY: HPV high risk is performed with the FDA approved Digene HC2 method whenever the specimen is cellular enough and the quantity of sample remaining in the vial after Thin Prep PAP slide preparation equals or greater than 4 ml. In cases of smaller sample (0.5 to 3.9 ml) the HPV high risk testing will be performed with Low Volume rfx. (01 RN) Digene Hybrid Capture (HC2). FDA approved and detects 13 "high risk" HPV types (16/18/31/33/35/39/45/51/52/56/58/59/68) without differentiation. (02 BN) Low Volume rfx detects fourteen "high risk" HPV types (16/18/31/33/35/39/45/51/52/56/58/59/66/68) without differentiation. ADDITIONAL COPIES SENT TO: Screened/Rescreened Electronically Signed Sign Out Date/Time: by: by: BELKIS DODD MD 11/05/2012 16:56 PATHOLOGIST Note: The Pap smear is a screening test designed to aid in the detection of premalignant and malignant conditions of the uterine cervix. It is not a diagnostic procedure and should not be used as the sole means of detecting cervical cancer. Both false-positive and false-negative reports do occur. 00 UA Pap Smear performed at [facility] Labs Dir: Ronna Ortega MD, [address] [facility] [address] 01 poacher operator [facility] [place] Dir: Brian Segura MD, [address] [facility] [id number] 02 [facility] [place] Dir: Lázaro Pinto MD, [address] [place] [phone] For inquiries regarding HPV test results, the physician may contact Lab [facility]: [phone] . 40 Escherichia coli >100,000 col/ml URINE CULTURE organism 1 Escherichia coli >100,000 col/ml Ertapenem <=0.5 Susceptible Amikacin <=2 Susceptible Amoxicillin/CA <=2 Susceptible Ampicillin <=2 Susceptible Aztreonam <=1 Susceptible Cefazolin <=4 Susceptible Cefoxitin <=4 Susceptible Ciprofloxacin <=0.25 Susceptible Gentamicin <=1 Susceptible Imipenem <=0.25 Susceptible Levofloxacin <=0.12 Susceptible Nitrofurantoin <=16 Susceptible Piperacillin/tazobactam <=4 Susceptible Trimethoprim/Sulfa <=20 Susceptible 41 Anion gap measurement may be of limited value in the presence of any alkalosis, especially in a combined acid base disorder. . 42 Note change in reference range as of 10/23/07. The change was based on recommendations from the [place] [employer]. 43 Please note change in reference range effective 07 . 44 A metabolite of Naproxen, O-desmethylnaproxen, has been shown to interfere with the Jendrassik-Venu method for measuring total bilirubin. Samples from patients who have taken Naproxen have shown spurious elevation in total bilirubin levels. 45 Because ethnic data is not always readily available, this report includes an eGFR for both -Americans and non- Americans. The National Kidney Disease Education Program (NKDEP) does not endorse the use of the MDRD equation for patients that are not between the ages of 18 and 70, are , have extremes of body size, muscle mass, or nutritional status, or are non- or non-. According to the National Kidney Foundation, irrespective of diagnosis, the stage of the disease is based on the level of kidney function: Stage Description GFR(mL/min/1.73 m(2)) 1 Kidney damage with normal or decreased GFR 90 2 Kidney damage with mild decrease in GFR 60-89 3 Moderate decrease in GFR 30-59 4 Severe decrease in GFR 15-29 5 Kidney failure <15 (or dialysis) 46 FINAL INTERPRETATION: No HIV antibody is detected. . This information has been disclosed to you from confidential records which are protected by [place] State law. State law prohibits you from making further disclosure of this information without the specific written consent of the person to whom it pertains, or as otherwise permitted by law. Any unauthorized further disclosure in violation of state law may result in a fine or penitentiary sentence or both. General authorization for the release of medical or other information is not, except in limited circumstances set forth in Part 63, Title 10, of [facility], sufficient authorization for further disclosure. Disclosure of confidential HIV information that occurs as the result of a general authorization for the release of medical or other information will be in violation of the state law and may result in a fine or a penitentiary sentence. . 47 Anion gap measurement may be of limited value in the presence of any alkalosis, especially in a combined acid base disorder. . 48 Note change in reference range as of 10/23/07. The change was based on recommendations from the [place] [employer]. 49 Please note change in reference range effective 07 . 50 A metabolite of Naproxen, O-desmethylnaproxen, has been shown to interfere with the Jendrassik-Biehle method for measuring total bilirubin. Samples from patients who have taken Naproxen have shown spurious elevation in total bilirubin levels. 51 FASTING 52 Negative 0 - 3 Weak Positive 4 - 10 Positive >10 . Tissue Transglutaminase (tTG) has been identified as the endomysial antigen. Studies have demonstr- ated that endomysial IgA antibodies have over 99% specificity for gluten sensitive enteropathy. Procedures Date CPT Code Description Status Comment 03/15/2014 15005 Electrocardiogram Complete Completed 12/24/2013 99861 Pulse Oximetry Completed 05/18/2013 48903 Electrocardiogram Complete Completed 11/05/2012 Mammogram Completed 10/28/2012 Mammogram Completed 01/21/2012 69220 Pulse Oximetry Completed 04/03/2010 36739 Pulse Oximetry Completed 03/04/2008 Mammogram Completed rescheduled 2017 07/29/[address] Mejia Encounters Type Date Location Provider CPT E/M Dx Office Visit 04/15/2017 2:10p Main Office Subhash Monroe M.D. 21412 I51.81 R05 I10 Office Visit 04/16/2016 10:00a Main Office Subhash Monroe M.D. 48912 C34.30 M54.5 R10.84 Office Visit 06/29/2015 1:00p Main Office Subhash Monroe M.D. 42367 R51 C34.30 Office Visit 12/20/2014 11:15a Main Office Amparo Garcia 50068 Z23 L03.115 F17.211 Office Visit 12/07/2014 11:00a Main Office Amparo Garcia 59166 L03.115 Office Visit 08/27/2014 9:10a Main Office Subhash Monroe M.D. 09089 599.0 719.46 784.0 Office Visit 08/16/2014 1:40p Main Office Subhash Monroe M.D. 53794 162.5 719.46 Office Visit 05/19/2014 1:20p Main Office Subhash Monroe M.D. 92889 784.0 162.5 Office Visit 05/12/2014 1:20p Main Office Subhash Monroe M.D. 36656 599.0 784.0 162.5 Office Visit 03/15/2014 9:40a Main Office Subhash Monroe M.D. 63240 786.6 305.1 V72.83 Office Visit 02/01/2014 9:20a Main Office Subhash Monroe M.D. 86633 786.6 Office Visit 01/11/2014 11:00a Main Office Subhash Monroe M.D. 27586 786.6 789.06 Office Visit 12/25/2013 10:30a Main Office KAYLEN Perales 57267 789.00 466.0 599.0 Office Visit 12/24/2013 10:00a Main Office Miguel Washington M.D. 94378 789.00 511.0 Office Visit 11/16/2013 2:00p Main Office Subhash Monroe M.D. 41907 719.89 Office Visit 07/31/2013 10:00a Main Office Subhash Monroe M.D. 30164 786.50 Office Visit 05/18/2013 3:20p Main Office Subhash Monroe M.D. 90640 530.11 Office Visit 01/26/2013 10:00a Main Office Subhash Monroe M.D. 27864 784.0 Office Visit 12/08/2012 8:10a Main Office Subhash Monroe M.D. 34301 627.9 079.4 Office Visit 10/29/2012 10:15a Main Office KAYLEN Perales 71257 V72.31 791.7 Office Visit 10/27/2012 10:10a Main Office Subhash Monroe M.D. 34924 719.49 Office Visit 05/14/2012 2:10p Main Office Subhash Monroe M.D. 40854 599.0 346.00 369.9 Office Visit 03/24/2012 9:10a Main Office Subhash Monroe M.D. 59696 466.0 Office Visit 01/21/2012 9:10a Main Office Subhash Monroe M.D. 85649 466.0 Office Visit 12/26/2011 1:50p Main Office Jorge Craven M.D. 96665 782.1 916.4 Office Visit 11/23/2011 4:20p Main Office Subhash Monroe M.D. 84216 346.00 Office Visit 11/07/2011 2:00p Main Office Subhash Monroe M.D. 08211 599.0 Office Visit 05/28/2011 9:00a Main Office Subhash Monroe M.D. 18428 564.1 627.2 Office Visit 04/25/2011 9:20a Main Office Subhash Monroe M.D. 30961 564.1 627.2 Office Visit 02/21/2011 8:15p Main Office Amparo Garcia 98620 564.1 784.0 724.5 Office Visit 04/14/2010 1:00p Main Office Subhash Monroe M.D. 89231 784.0 724.5 Office Visit 04/13/2010 3:40p Main Office Jorge Craven M.D. 60982 346.11 Office Visit 04/06/2010 2:30p Main Office Jorge Craven M.D. 55912 709.9 Office Visit 04/03/2010 1:10p Main Office Subhash Monroe M.D. 89727 079.99 Office Visit 02/27/2010 3:10p Main Office Subhash Monroe M.D. 55641 530.81 592.0 784.0 599.72 Office Visit 11/08/2009 4:15p Main Office [facility] 03300 726.19 Office Visit 06/21/2009 2:10p Main Office Elie Sarmiento M.D. 39696 530.81 789.06 719.46 Office Visit 02/11/2009 1:10p Main Office Subhash Monroe M.D. 23191 599.0 Office Visit 11/27/2008 9:30a Main Office [facility] 31900 466.0 Office Visit 11/23/2008 11:20a Main Office Jorge Craven M.D. 28056 465.9 Office Visit 09/01/2008 11:20a Main Office Subhash Monroe M.D. 30861 789.06 Office Visit 08/12/2008 7:00p Main Office Giuliana PaniaguaigneAmparo 54009 789.06 530.81 782.1 Office Visit 08/03/2008 9:20a Main Office Martha Pérez M.D. 53632 782.1 530.81 Office Visit 02/09/2008 3:10p Main Office Subhash Monroe M.D. 50592 789.06 783.21 Office Visit 01/19/2008 2:10p Main Office Subhash Monroe M.D. 71549 789.06 787.91 Office Visit 07/16/2007 3:00p Main Office Subhash Monroe M.D. 46446 527.5 Office Visit 06/02/2007 3:10p Main Office Subhash Monroe M.D. 87948 401.1 789.06 Plan of Care Future Appointment(s):05/20/2017 2:20 pm - Subhash Monroe M.D. at Main Sdigkx8804/30/2017 - Leisa Garcia-CJ20.9 Acute bronchitis, unspecifiedNew Medication:Levalbuterol Tartrate 45 mcg/ActAllComments:~B_~U_ Medication Management~b_~u_ Patient Understands medications she's taking? Yes No Are there Barriers to Adherence? Yes No Has the patient been asked about herbal supplements and therapies, and OTC meds? Yes No ~B_~U_Care Plan~b_~u_1. Patient has been queried about patient's goals/ preferences and functional/lifestyle goals at relevant visits. If relevant, describe: na2. Treatment goals as explained to the patient: abovecontinued sx resolution 3. Are there barriers to meeting treatment goals? Yes No If Yes, please describe:4. Self-Management goals as described to the patient: Yes No your exam seems much improved , we will try an mdi bronchodilator for hs use f/u routine and if no better with above
[2017-05-25 10:06] LABS: ABS Basophils 0 10^3/ul (0-0.2); ABS Eosinophils 0 10^3/ul (0-0.6); ABS Lymphocytes 5.2 10^3/ul (1.0-4.8); ABS Monocytes 0.3 10^3/ul (0-0.8); ABS Neutrophils 2.6 10^3/ul (1.5-7.7); ABS Nucleated RBC 0 10^3/ul; Eosinophil % 0.4 % (0-6); Lymphocyte % 63.2 % (25-47); Nucleated Red Blood Cells % 0.4
--- NOTE | 2017-05-25 10:24 | RAD ---
HISTORY: Chest pain into back, evaluate for dissection COMPARISONS: March 29, 2017 TECHNIQUE: Multiple contiguous axial CT scans were obtained of the chest, abdomen, and pelvis after the administration of intravenous contrast. Coronal and sagittal multiplanar reformations are submitted for review.. 3-D volumetric reconstructions of the aorta are also submitted for review. FINDINGS: CHEST NECK AND THYROID: The thyroid gland is heterogeneous. There are multiple thyroid nodules measuring up to 1.6 cm in size. CHEST WALL: There are rounded subcentimeter short axis axillary lymph nodes. The largest measures up to 0.9 cm short axis on the right. HEART AND PERICARDIUM: Coronary calcifications are noted. AORTA AND PULMONARY VASCULATURE: There is ectasia of ascending thoracic aorta up to 3.5 cm transversely. The aorta is tortuous with mild atherosclerosis of the thoracic aorta. There is no intimal flap to suggest dissection. There is no periaortic hematoma. The pulmonary vasculature is unremarkable. MEDIASTINUM: There is no mediastinal lymphadenopathy by size criteria. SEDRICK: There is no hilar lymphadenopathy by size criteria. AIRWAY AND ESOPHAGUS: The airway is unremarkable, without endobronchial filling defect. The esophagus is grossly normal. LUNG PARENCHYMA: There is biapical emphysematous change. PLEURA: No pleural abnormalities are noted. BONES AND SOFT TISSUES: No bone or soft tissue abnormalities are noted. ABDOMEN/PELVIS: LIVER: There are low-attenuation hepatic parenchymal lesions most consistent with cysts. These are stable from the previous examination. BILE DUCTS: There is no intrahepatic or extrahepatic biliary dilatation. GALLBLADDER: The gallbladder is normal, without pericholecystic inflammatory change. PANCREAS: The pancreas is normal, without mass or ductal dilatation. SPLEEN: Normal in size and appearance. UPPER GI TRACT: Evaluation of the gastrointestinal tract is limited by incomplete gastric distention. The upper GI tract is unremarkable. SMALL BOWEL & MESENTERY: The small bowel is normal in contour, course, and caliber. There is no obstruction or dilatation. COLON: There are multiple diverticula of the distal colon. There is no pericolonic inflammatory change. ADRENALS: There is nodular thickening of the adrenal glands bilaterally without discrete mass, suggestive of adrenal hyperplasia. KIDNEYS: The kidneys are normal in shape, size, contour, and axis. There is no hydronephrosis or nephrolithiasis. BLADDER: The bladder is smooth in contour. PELVIC ORGANS: The uterus and adnexa are grossly normal for technique. AORTA: There is calcific atherosclerotic disease of the abdominal aorta and its branches, without aneurysmal dilatation IVC: Unremarkable LYMPH NODES: There is no lymphadenopathy by size criteria. ABDOMINAL WALL: There is no evidence for abdominal wall hernia. BONES AND SOFT TISSUES: The bony skeleton is grossly unremarkable. OTHER: None IMPRESSION: 1. NO INTIMAL FLAP TO SUGGEST DISSECTION. NO PERIAORTIC HEMATOMA. 2. THERE IS ECTASIA OF ASCENDING THORACIC AORTA UP TO 3.5 CM IN DIAMETER. 3. ATHEROSCLEROSIS. 4. EMPHYSEMA. 5. INDETERMINATE AXILLARY LYMPH NODES BILATERALLY WITHOUT LYMPHADENOPATHY BY SIZE CRITERIA. 6. DIVERTICULOSIS. 7. MULTIPLE THYROID NODULES MEASURING UP TO 1.6 CENTIMETERS IN SIZE. THE CITIZEN [place] OF RADIOLOGY INCIDENTAL THYROID FINDINGS COMMITTEE RECOMMENDS THYROID ULTRASOUND FOR INCIDENTAL NONSUSPICIOUS THYROID NODULES GREATER THAN 1.5 CM IN SIZE FOR THE PATIENT OVER THE AGE OF 35. ASHUTOSH Chairez et al (2015) "Managing incidental thyroid nodules detected on imaging: white paper of the ACR Incidental Thyroid Findings Committee", Journal of the [employer], 12:143-150. .
[2017-05-25] MEDS ORDERED: oxyCODONE TAB* 5 MG TAB PO PRN (12:23)
[2017-05-25] MEDS ORDERED: hydrOXYzine HCL TAB* 25 MG PO PRN (12:23)
[2017-05-25] MEDS ORDERED: Nicotine PATCH 14 MG/24 HR* PATCH TRANSDERM PRN (12:23)
[2017-05-25] MEDS ORDERED: Hydrocodone/Acetamin 10/325 1 TAB PO PRN (12:23)
[2017-05-25] MEDS ORDERED: Docusate CAP* 100 MG PO PRN (12:23)
[2017-05-25] MEDS ORDERED: Morphine INJ* 4 MG/ML 1 ML SYRINGE (NEW SYRINGE VERSION) IV PRN (12:25)
[2017-05-25] MEDS ORDERED: Acetaminophen TAB* 325 MG PO PRN (12:25)
[2017-05-25] MEDS ORDERED: Potassium Chlor TAB* 20 MEQ TAB.ER PO ONE (13:04)
[2017-05-25] MEDS: Heparin VIAL(*) 5000 UNITS/ML VIAL (FIVE THOUSAND) SUBCUT SCH ×2 (13:51→22:14)
[2017-05-25] MEDS: Losartan TAB* 25 MG PO SCH (13:51)
[2017-05-25] MEDS ORDERED: hydrALAZINE IV* 20 MG/ML VIAL IV SLOW PU PRN (14:10)
--- NOTE | 2017-05-25 15:28 | RAD ---
HISTORY: Rule out intracranial hemorrhage. Chest pain. No other history is provided. COMPARISONS: July 13, 2015 TECHNIQUE: Multiple contiguous axial CT scans were obtained of the head without intravenous contrast. FINDINGS: HEMORRHAGE/INFARCT: There is no hemorrhage or acute infarct. MASSES/SHIFT: There is no mass or shift. EXTRA-AXIAL SPACES: There are no extra-axial fluid collections. SULCI AND VENTRICLES: The sulci and ventricles are normal in size and position for the patient's stated age. CEREBRUM: There are no focal parenchymal abnormalities. BRAINSTEM: There are no focal parenchymal abnormalities. CEREBELLUM: There are no focal parenchymal abnormalities. VESSELS: The vessels are grossly normal. PARANASAL SINUSES: The paranasal sinuses are clear. ORBITS: The orbits are unremarkable. BONES AND SOFT TISSUE: No bone or soft tissue abnormalities are noted. OTHER: None IMPRESSION: NO ACUTE INTRACRANIAL PATHOLOGY.
[2017-05-25] MEDS: amLODIPine TAB* 5 MG PO SCH (15:32)
--- NOTE | 2017-05-25 20:49 | HP ---
ADDENDUM NOW INCLUDED ON THIS REPORT CC: Dr. Monroe; Dr. Erlin Ramos; Dr. Logan * HISTORY AND PHYSICAL: DATE OF ADMISSION: 05/25/17 PRIMARY CARE PROVIDER: Dr. Monroe. CHIEF COMPLAINT: Chest pain on the right side. HISTORY OF PRESENT ILLNESS: Tena Hall is a 61-year-old female with history of acute RI, due to takotsubo syndrome that occurred on 03/29/17. On the same day, she had cardiac catheterization, which showed no obstructive coronary artery disease, but low EF as mentioned above. The patient was discharged to home on the metoprolol, but when she saw Dr. Erlin Ramos for a followup, on 11/19, she was noted to have discontinued the metoprolol due to causing her to be dizzy. Dr. Ramos also noted during his visit that the patient has Wenckebach second-degree heart block. Apparently, she was also to discontinue her aspirin after that visit with the industrial engineering manager, which she has not done yet. The patient stated that the pain had been going on for 2 days. She describes it as lower back pain, right upper back pain radiating to the chest. The back pain is worse when she walks, when she moves overall, and takes a deep breath. The chest pain resolved. Currently, she has a headache after nitroglycerin that was given in the emergency department. She was noted to have sinus bradycardia with occasional dropped beat and sinus pause. Her heart rates ranged anywhere from 32 to 65 during the observation in the emergency room. She is going to be placed on observation into the intensive care unit. The question is if the patient has Mobitz type 1 or Mobitz type 2 heart block. In regards to her chest pain per se, her troponin is negative and EKG does not appear to be ischemic. I suspect this is related to her chronic back pain. PAST MEDICAL HISTORY: 1. History of takotsubo syndrome with EF of 25%. The most recent EF documented on 05/10/[address] Ramos was approximately 45%. 2. History of hypertension. 3. History of peptic ulcer disease. 4. History of chronic pain and chronic low back pain, for which the patient is on disability. 5. History of rheumatoid arthritis. 6. History of migraines. 7. History of lung cancer, status post right-sided partial lobectomy. 8. History of tubal ligation. MEDICATIONS: At home, include: 1. Atarax to 50 mg every 6 hours. 2. Nicotine patch 14 mg transdermally daily. 3. Colace 100 mg daily as needed. 4. Protonix 40 mg daily. 5. Celebrex 200 mg daily p.r.n. 6. Oxycodone 5 mg up to 3 times a day for pain. 7. Losartan 50 mg daily. ALLERGIES TO MEDICATIONS: Includes ASPIRIN, which causes GI upset and NAPROXEN which causes GI upset. FAMILY HISTORY: Mother with breast cancer, father with throat cancer. SOCIAL HISTORY: The patient has history of remote smoking. She currently does not smoke. She denies any alcohol use or drug use. She lives alone. Her decision make is her son, Sandra Garcia. REVIEW OF SYSTEMS: Please see history of present illness. Positive for lumbar back pain as well as right chest pain. Negative for shortness of breath. The patient's exercise is limited due to back pain. The patient stated that she "maybe gained approximately 5 pounds". Other remaining 12 systems reviewed with the patient and were otherwise negative. PHYSICAL EXAMINATION GENERAL: The patient is very pleasant 61-year-old female, who is in no acute distress. Alert, awake, oriented x3. VITAL SIGNS: Pressures through the patient's hospital stay ranged anywhere as high as 213 systolic. Currently, is 159/60, heart rate of 59 and regular, respiratory rate 18, oxygen saturation 100 % on room air, and temperature 97.8. HEENT: Head atraumatic, normocephalic. Eyes: Pupils equal, round, and reactive to light and accommodation. Oropharynx clear. Mucosa moist. NECK: Supple. No JVD and no bruits bilaterally. RESPIRATORY: Clear to auscultation bilaterally. CARDIOVASCULAR: Regular rate and rhythm. No murmur, bradycardia. ABDOMEN: Soft, nontender. Bowel sounds are present in all 4 quadrants. EXTREMITIES: There is no edema. Pulses +2 bilaterally. No clubbing, cyanosis. NEUROLOGIC: On neuro evaluation, speech clear. Cranial nerves II through XII grossly intact. Motor strength is 5/5 bilaterally. SKIN: On evaluation of the chest and the back, the patient is tender to palpation on the left paraspinal musculature and the lumbar area and right scapula. The right scapula is very tender to palpation. There was no evidence of abnormal masses on palpation and no evidence of skin abnormalities on the patient's back. There is no tenderness to palpation of the anterior chest. DIAGNOSTIC STUDIES/LAB DATA: Show a white cell count of 8.1, hemoglobin 11.6, hematocrit 36, and platelets 254. D-dimer was below 200. Sodium was 137, potassium 3.2, chloride 101, carbon dioxide 28, BUN 15, creatinine 0.66. Liver function tests are unremarkable. Troponin 0 and repeat troponin was 0. TSH was 1.25. The patient had a CT angiogram of the chest, abdomen, and pelvis obtained, which showed impression "no intimal flap to suggest dissection. No periaortic hematoma. There was ectasia of the ascending thoracic aorta up to 3.5 cm in diameter. Atherosclerosis. Emphysema. There are indeterminate axillary lymph nodes bilaterally without lymphadenopathy by size criteria. Diverticulosis. Multiple thyroid nodules measuring up to 1.6 cm in size. The [employer] Incidental Thyroid Findings Committee recommends thyroid ultrasound for incidental and nonsuspicious thyroid nodules greater than 1.5 cm in size for the patient over the age of 36." The patient's EKG shows sinus bradycardia, prolonged [place] interval, and one missed beat. At this point, there appears to be either a Mobitz type 1 or Mobitz type 2 heart block. ASSESSMENT AND PLAN: 1. Bradycardia. The patient is . She had chest pain that resolved, but she still continues to be bradycardic. Apparently, the patient has history of brachycardia in the past when on beta blockers and the dose was lowered during her previous hospital stay and then the patient discontinued it herself due to symptoms. At this point, I will ask Dr. Logan to see the patient in consultation from Cardiology. For the time being, the patient is going to be placed in the intensive care unit for monitoring. All other rate controlling agents are going to be on hold. 2. In regards to the patient's history of rheumatoid arthritis, the patient is going to be continued on Celebrex on a p.r.n., basis, as well as oxycodone on a p.r.n. basis. 3. In regards to the patient's chest pain, her troponins are unremarkable. She does not appear to have ischemic changes on the EKG and her cardiac catheterization in March 2017 disclosed normal coronary arteries. At this point, I suspect that the pain is more related to back pain, but we will continue checking troponins. 4. History of cardiomyopathy with history of takotsubo syndrome. Most recent echocardiogram limited shows EF of 45%. We will obtain another echocardiogram tomorrow. 5. Of note the patient's hypertension appears to be related to anxiety. The patient's systolic blood pressures are down to 160s, despite that nitroglycerin had to be stopped. We will continue losartan and continue observation. 6. For DVT prophylaxis, the patient is going to be placed on heparin subcutaneously. 7. For hypokalemia, is going to be replaced with p.o. potassium. 8. The patient's code status is full and her surrogate is her son. TIME SPENT: Approximately 65 minutes was spent on admission of this patient, more than half that time was spent [id number] with the patient during the interview and physical exam. ADDENDUM: In regards to nodules in patient's thyroid, which are up to 1.6 cm, does require an outpatient thyroid ultrasound and patient was informed about that. Patient's TSH is within normal limits at this point and no further investigation while inpatient at this point are indicated. [id number] #: [id number] #: [id number] KARLA
--- NOTE | 2017-05-25 21:22 | CONS ---
CC: Dr. Monroe; Dr. Ramos CARDIOLOGY CONSULTATION: DATE OF CONSULT: 05/25/17 CONSULTING PHYSICIAN: Dr. Gallo. PATIENT OF: Dr. Monroe and Dr. Ramos. REASON FOR EVALUATION: Chest pain, bradycardia. HISTORY OF PRESENT ILLNESS: This is a very pleasant 61-year-old woman, who has a history of hypertension, tobacco use in the past, headaches, dizzy spells, who recently was admitted with chest pain and diagnosed with takotsubo syndrome in March. Her EF was as low as 25%. She has had improvement in her function since then and saw Dr. Ramos earlier this month. At that meeting, it was noted that she had a Wenckebach rhythm on her EKG. She had been treated with metoprolol after her admission in March, but she had worsening of her dizzy spells and discontinued it on her own. She said dizzy spells got better, but she still has dizzy spells. She said that she will have these a few times a day where she will be walking or sitting and feels herself lightheaded and waits a few minutes and it resolves. If she is walking, she has to stop. She also says if she walks a block, she will feel lightheaded and short of breath and feels her heart rate increase. Over the last 2 days, she has had chest pressure, which would last for 5 minutes and resolve, sometimes on the left, sometimes on the right. Because of the symptoms, she came to the emergency room. She said she got nitroglycerin and has had relief of her symptoms; however, she was noted to be hypertensive and have a Wenckebach rhythm and is admitted for observation. She has headaches, which occur several days a week. She says these have been present for several months and she has had a CAT scan of her head with Dr. Monroe. She denies fevers, chills, or sweats. No nausea , vomiting, diarrhea. She does report over the last several months she has had to sit up at night because of a cough. She denies diarrhea. The patient does report vaginal bleeding over the last few months and has a PLANT OPERATOR HELPER evaluation pending. She also has had some discomfort with swallowing of unclear etiology and had CT scan today, which revealed some thyroid nodules. I suggested that she follow up as instructed by the hospitalist. PAST MEDICAL HISTORY: Includes hypertension; tobacco use, discontinued 2 years ago; possible emphysema; rheumatoid arthritis; peptic ulcer disease; chronic pain; migraines; lung cancer, status post resection on the right, she says she has residual pain at the surgical site; Wenckebach. She was admitted with chest pain and had a catheterization on 03/30/[address] elevations. She has nonobstructive coronary disease, normal left-sided hemodynamics aside from elevated LVEDP, severe LV systolic dysfunction consistent with takotsubo. Echocardiogram from 05/07/17 was performed and revealed mild global hypokinesis with EF of 45%. PAST SURGICAL HISTORY: Includes tubal ligation and the lung tumor resection in 2015. ALLERGIES: She denies any allergies, but on her past records, it includes ASPIRIN, which causes GI upset and NAPROSYN. FAMILY HISTORY: Mother is 80 and had cancer. Her father at 50 of cancer. She has 2 brothers, 1 sister. SOCIAL HISTORY: She is never and has 2 children. 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 She is disabled because of chronic back pain. REVIEW OF SYSTEMS: Review of systems x10 was negative except as above. PHYSICAL EXAM: Well-developed, well-nourished female, in no apparent distress. Blood pressure is 209/99 at 1250 and remains elevated approximately 200/112, pulse of 58, temperature 97.8, O2 sat 100% on room air. Atraumatic, normocephalic. Extraocular muscles intact. Sclerae anicteric. No significant JVD. Chest was clear. No CVAT. There was some mild tenderness at the site of her healed surgical wound in the midline of her right thorax. Abdomen: Bowel sounds present, nontender. Femoral pulses intact without bruits. Distal pulses intact. No edema. Motor strength 5/5 bilaterally. DIAGNOSTIC STUDIES/LAB DATA: Echo from 03/31/17 revealed normal LV size, mild LVH with EF 40%, moderate hypokinesis in the apical segments and apex, no hemodynamically significant LVOT gradient or MR, left atrium mild to moderately dilated, normal RV size, reduced RV function, [id number] TR, mild pulmonary hypertension, and the subsequent focused study of 05/07/17 revealed mild global LV hypokinesis with EF of 45%. Her blood pressure at that time was 192/112 at the time of visit on 05/09/17. Laboratories here include a potassium low at 3.2, sodium of 137, BUN of 15, creatinine of 0.66. Troponin of 0 x2. Normal TSH. White count 8.1, hemoglobin low at 11.6, platelet count of 254. D-dimer negative less than 200. She did have a CT scan of her abdomen and pelvis, which revealed no evidence of dissection. There is ectasia in the ascending aorta up to 3.5 cm. There was atherosclerosis, emphysema, indeterminate axillary lymph nodes laterally, diverticulosis, multiple thyroid nodules up to 1.6 cm. An EKG from today revealed sinus rhythm, what appeared to be Wenckebach rhythm, diffuse ST-T changes more prominent anteriorly and comparing to the EKG of 05/09, there has been interval improvement in the anterior T-wave inversions, the Wenckebach is similar. She had a CT of the brain back on 07/13/15, which revealed no intracranial findings. Of note, she had a transvaginal ultrasound on 03/31/17, which revealed a cystic structure in the right adnexa measuring 3.9 cm, which represent a paraovarian cyst or exophytic cyst, suggest followup in 2 to 3 menstrual cycles. IMPRESSION AND PLAN: My impression is that Ms. Hall has multiple complaints of palpitations, lightheadedness, chest pain with severe hypertension and type I second-degree atrioventricular block, as well as hypokalemia and history of takotsubo syndrome. She has been intolerant of beta blockers, which would be useful for her takotsubo and left ventricular dysfunction. She may have developed symptomatic bradycardia or chronotropic insufficiency based on her description. For the time being, I would recommend the following: I strongly recommend control of her blood pressure as you are doing. She is being started on losartan and we consider adding amlodipine for its calcium channel omar and antispasm effects. Would replace potassium as you are doing. Would follow up serial troponins as you are doing. Consider repeat echo at some point once her blood pressure is better controlled. Would consider an exercise test to evaluate for chronotropic insufficiency and higher degrees of atrioventricular block with exertion. At some point, she might benefit from a pacemaker if we can determine that her symptoms of lightheadedness are due to symptomatic bradycardia and event monitor might be helpful in this regard. She also reports a history of vaginal bleeding and workup is pending as per the patient. She also has thyroid nodules and some difficulty swallowing. I will defer further workup to the hospitalist and Dr. Monroe. Consider repeat head ct given continuing headaches, bradycardia, hypertension which raises the possibility of increased intracranial pressure. [id number] #: [id number]
--- NOTE | 2017-05-25 23:43 | HP ---
HISTORY AND PHYSICAL: ADDENDUM: In regards to nodules in patient's thyroid, which are up to 1.6 cm, does require an outpatient thyroid ultrasound and patient was informed about that. Patient's TSH is within normal limits at this point and no further investigation while inpatient at this point are indicated. [id number] #: [id number] MTDD
[2017-05-26] MEDS: Heparin VIAL(*) 5000 UNITS/ML VIAL (FIVE THOUSAND) SUBCUT SCH ×3 (06:09→20:54)
[2017-05-26] MEDS: Omeprazole CAP* 20 MG PO SCH (06:09)
[2017-05-26 07:11] LABS: Hematocrit 36 % (35-47); Hemoglobin 11.7 g/dl (12.0-16.0); Mean Corpuscular HGB Conc 32 g/dl (31-36); Mean Corpuscular Hemoglobin 28 pg (27-31); Mean Corpuscular Volume 87 fL (80-97); Mean Platelet Volume 9.1 um3 (7.4-10.4); Platelet Count 249 10^3/ul (150-450); Red Blood Count 4.19 10^6/ul (4.0-5.4); Red Cell Distribution Width 15 % (10.5-15); White Blood Count 7.1 10^3/ul (3.5-10.8)
[2017-05-26 07:15] LABS: EGFR Non-African American 89.5 (>60)
[2017-05-26] MEDS: Aspirin EC Low Dose* 81 MG TAB.EC PO SCH (08:11)
[2017-05-26] MEDS: amLODIPine TAB* 5 MG PO SCH (08:11)
[2017-05-26] MEDS: Losartan TAB* 25 MG PO SCH (08:14)
[2017-05-26 08:26] LABS: ABS Basophils 0.1 10^3/ul (0-0.2); ABS Eosinophils 0.1 10^3/ul (0-0.6); ABS Lymphocytes 4.6 10^3/ul (1.0-4.8); ABS Monocytes 0.3 10^3/ul (0-0.8); ABS Neutrophils 2.1 10^3/ul (1.5-7.7); ABS Nucleated RBC 0 10^3/ul; Eosinophil % 1.5 % (0-6); Lymphocyte % 64.6 % (25-47); Nucleated Red Blood Cells % 0.2
--- NOTE | 2017-05-26 09:41 | PN ---
Subjective Date of Service: 05/26/17 Interval History: . Interviewed and examined patient at bedside; Discussed case with Dr. Gallo; Reviewed previous notes and radiology results; no new symptomology reported. Plan for stress test tomorrow (Saturday). Most Recent Blood Pressures 05/26/17 05/26/17 05/26/17 03:00 04:01 05:00 Blood Pressure 121/66 146/62 143/70 (mmHg) 05/26/17 05/26/17 06:00 07:00 Blood Pressure 157/80 155/86 (mmHg) . Family History: Unchanged from Admission Social History: Unchanged from Admission Past Medical History: Unchanged from Admission Objective Active Medications: . Acetaminophen (Tylenol Tab*) 650 mg PO Q4H PRN PRN Reason: FEVER/PAIN Last Admin: 05/26/17 06:29 Dose: 650 mg Amlodipine Besylate (Norvasc Tab*) 5 mg PO DAILY [facility] Last Admin: 05/26/17 08:11 Dose: 5 mg Aspirin (Aspirin Ec Low Dose*) 81 mg PO DAILY [facility] Last Admin: 05/26/17 08:11 Dose: 81 mg Docusate Sodium (Colace Cap*) 100 mg PO DAILY PRN PRN Reason: CONSTIPATION Heparin Sodium (Porcine) (Heparin Vial(*)) 5,000 units SUBCUT Q8HR [facility] Last Admin: 05/26/17 06:09 Dose: 5,000 units Hydralazine HCl (Apresoline Iv*) 5 mg IV SLOW PU Q6H PRN PRN Reason: BLOOD PRESSURE Hydroxyzine HCl (Atarax Tab*) 25 mg PO Q4HR PRN PRN Reason: ANXIETY Losartan Potassium (Cozaar Tab*) 50 mg PO DAILY [facility] Last Admin: 05/26/17 08:14 Dose: 50 mg Morphine Sulfate (Morphine Inj (Syringe)*) 2 mg IV Q4H PRN PRN Reason: PAIN Nicotine (Nicotine Patch 14 Mg/24 Hr*) 1 patch TRANSDERM DAILY PRN PRN Reason: CRAVINGS Omeprazole (Prilosec Cap*) 20 mg PO DAILY@0600 [facility] Last Admin: 05/26/17 06:09 Dose: 20 mg Oxycodone HCl (Roxycodone Tab*) 5 mg PO Q8H PRN PRN Reason: PAIN Last Admin: 05/25/17 14:26 Dose: 5 mg . Vital Signs - 8 hr 05/26/17 05/26/17 05/26/17 01:45 02:00 03:00 Temperature 98.3 F Pulse Rate 54 59 Respiratory 19 22 Rate Blood Pressure 133/68 121/66 (mmHg) O2 Sat by Pulse 97 97 Oximetry Oxygen Devices in Use Now: None Appearance: NAD, NC/AT Eyes: No Scleral Icterus Ears/Nose/Mouth/Throat: Clear Oropharnyx Neck: Trachea Midline Respiratory: Symmetrical Chest Expansion and Respiratory Effort Cardiovascular: NL Sounds; No Murmurs; No JVD Abdominal: NL Sounds; No Tenderness; No Distention Lymphatic: No Cervical Adenopathy Extremities: No Edema Skin: No Rash or Ulcers Neurological: Alert and Oriented x 3 Lines/Tubes/Other Access: Clean, Dry and Intact Peripheral IV Nutrition: Taking PO's Result Diagrams: 05/26/17 06:30 05/26/17 06:30 Microbiology and Other Data: Microbiology 05/25/17 14:00 Nasal Screen MRSA (PCR)(PIERRE) - Final Nasal Mrsa Not Detected Diagnostic Imaging: Brain CT (05/25): No IC hemorrhage or other abnl process identified CTA Chest/A/P: - no PE - no dissection - + thyroid nodules -- (patient to have outpatient thyroid ultrasound) Assess/Plan/Problems-Billing . Assessment: 61 yo female with h/o takasubo's cardiomyopathy (EF recovering, most recently EF > 40% but TTE pending now), as well as uncontrolled HTN and now with potentially symptomatic bradycardia (dizziness, LH) Admitted for ICU monitoring with HR in 30's. Off AVN agents; controlling HTN with other agents Plan for stress test saturday05/26/17 . - Patient Problems (1) Symptomatic bradycardia Current Visit: Yes Status: Acute Priority: High Code(s): R00.1 - BRADYCARDIA, UNSPECIFIED Comment: - ICU monitoring; hold any AVN-active agents (i.e. BB) - Cardiology consult appreciated: stress test scheduled 05/26/17. TTE pending. - troponins have been negative; BP better controlled than at admission - electrolytes repleted; will follow daily. (2) Multiple thyroid nodules Current Visit: Yes Status: Acute Priority: High Code(s): E04.2 - NONTOXIC MULTINODULAR GOITER Comment: - Will refer to PCP for coordinated thyrooid ultrasound after discharge - TSH normal. (3) Full code status Current Visit: No Status: Acute Code(s): Z78.9 - OTHER SPECIFIED HEALTH STATUS SNOMED Code(s): 884286954 (4) Takotsubo cardiomyopathy Current Visit: No Status: Acute Code(s): I51.81 - TAKOTSUBO SYNDROME SNOMED Code(s): 420902066 Comment: - EF improving, now 40% up from ~ 20-25% (5) Vaginal bleeding Current Visit: No Status: Acute Priority: High Code(s): N93.9 - ABNORMAL UTERINE AND VAGINAL BLEEDING, UNSPECIFIED Comment: - DICER OPERATOR consult noted from Mar 2017 - Transvaginal US without significant findings at that time - Follow-up with DICER OPERATOR outpatient. - Not significantly (modestly) anemic (6) HTN (hypertension) Current Visit: No Status: Chronic Priority: High Code(s): I10 - ESSENTIAL (PRIMARY) HYPERTENSION Comment: - stage II-III+ HTN - On norvasc / losartan --> will increase doses modestly. - 61 yo ==> target SBP < 140. (7) History of lung cancer Current Visit: No Status: Chronic Priority: High Code(s): Z85.118 - PERSONAL HISTORY OF MALIGNANT NEOPLASM OF BRONCHUS AND LUNG Comment: - S/P resection on the right - vagal nerve involvement/scarring to influence bradycardia (8) DVT prophylaxis Current Visit: No Status: Acute Code(s): TGN6947 - SNOMED Code(s): 006660010 Comment: - On ASA; holding AC given vaginal bleeding.
[2017-05-26] MEDS ORDERED: amLODIPine TAB* 5 MG PO SCH (09:58)
[2017-05-26] MEDS ORDERED: Losartan TAB* 25 MG PO SCH (09:59)
[2017-05-26] MEDS ORDERED: Potassium Chlor TAB* 20 MEQ TAB.ER PO ONE (09:59)
[2017-05-26] MEDS ORDERED: Potassium Chloride LIQUID* 20 MEQ PACKET PO ONE (11:50)
[2017-05-27] MEDS: Omeprazole CAP* 20 MG PO SCH (05:43)
[2017-05-27] MEDS: Heparin VIAL(*) 5000 UNITS/ML VIAL (FIVE THOUSAND) SUBCUT SCH ×3 (05:44→21:19)
[2017-05-27] MEDS ORDERED: Losartan TAB* 25 MG PO SCH (09:00)
[2017-05-27] MEDS ORDERED: amLODIPine TAB* 5 MG PO SCH (09:00)
--- NOTE | 2017-05-27 11:37 | RAD ---
Edited for charges. INDICATION: Bradycardia, chest pain, hypertension, family history of heart disease. COMPARISON: No relevant prior exams available on the [facility] PACS for comparison. TECHNIQUE: 10.300 mCi of Tc-99m Myoview were administered IV. SPECT images of the heart were obtained. Later on the same day. Under the direction of Dr. Ramos, an exercise stress test was performed. The patient achieved a peak heart rate of 140 bpm, 60 % of the age- predicted maximum. Subsequently, the patient was given an IV injection of 25.290 mCi Tc- 99m Myoview. SPECT images of the heart were obtained and a gated wall motion study was performed. FINDINGS: Gated wall motion images were obtained at stress and demonstrate hypokinesia at the apex and apical segment of the anterior wall. The calculated left ventricular ejection fraction is 60 % at stress. Estimated LEFT ventricular end diastolic volume is 62 mL. TID 1.08. Based on review of the attenuation corrected and non corrected images the distribution of radiopharmaceutical within the myocardium on the stress and rest images is within normal limits. No fixed or reversible regions of hypoperfusion evident. IMPRESSION: 1. Hypokinesia at the apex and apical segment of the anterior wall. 2. No evidence for stress-induced ischemia or presence of an infarct. ASSESSMENT: Low risk based on nuclear portion. Based on imaging criteria from ACC/AHA 2002 Guideline Update for the Management of Patients With Chronic Stable Angina Table 23. Noninvasive Risk Stratification. MTDD
[2017-05-27] MEDS: Losartan TAB* 25 MG PO SCH (11:42)
[2017-05-27] MEDS: amLODIPine TAB* 5 MG PO SCH (11:42)
[2017-05-27] MEDS: Aspirin EC Low Dose* 81 MG TAB.EC PO SCH (11:42)
--- NOTE | 2017-05-27 15:31 | PN ---
Subjective Date of Service: 05/27/17 Interval History: . stress test today less symptomatic than before (no dizziness/LH) BP's well controlled on current regimen. patient is going to stay with son at ut will f/u with Dr. Monroe and Dr. Ramos after ut. No significant bradycardic episodes on telemetry Selected Entries 05/27/17 05/27/17 05/27/17 03:43 09:09 11:23 Blood Pressure 123/60 127/67 146/79 (mmHg) Family History: Unchanged from Admission Social History: Unchanged from Admission Past Medical History: Unchanged from Admission Objective Active Medications: . Acetaminophen (Tylenol Tab*) 650 mg PO Q4H PRN PRN Reason: FEVER/PAIN Last Admin: 05/26/17 06:29 Dose: 650 mg Amlodipine Besylate (Norvasc Tab*) 5 mg PO DAILY [facility] Last Admin: 05/27/17 11:42 Dose: 5 mg Aspirin (Aspirin Ec Low Dose*) 81 mg PO DAILY [facility] Last Admin: 05/27/17 11:42 Dose: 81 mg Docusate Sodium (Colace Cap*) 100 mg PO DAILY PRN PRN Reason: CONSTIPATION Heparin Sodium (Porcine) (Heparin Vial(*)) 5,000 units SUBCUT Q8HR [facility] Last Admin: 05/27/17 14:50 Dose: 5,000 units Hydralazine HCl (Apresoline Iv*) 5 mg IV SLOW PU Q6H PRN PRN Reason: BLOOD PRESSURE Hydroxyzine HCl (Atarax Tab*) 25 mg PO Q4HR PRN PRN Reason: ANXIETY Losartan Potassium (Cozaar Tab*) 50 mg PO DAILY [facility] Last Admin: 05/27/17 11:42 Dose: 50 mg Morphine Sulfate (Morphine Inj (Syringe)*) 2 mg IV Q4H PRN PRN Reason: PAIN Nicotine (Nicotine Patch 14 Mg/24 Hr*) 1 patch TRANSDERM DAILY PRN PRN Reason: CRAVINGS Omeprazole (Prilosec Cap*) 20 mg PO DAILY@0600 [facility] Last Admin: 05/27/17 05:43 Dose: 20 mg Oxycodone HCl (Roxycodone Tab*) 5 mg PO Q8H PRN PRN Reason: PAIN Last Admin: 05/25/17 14:26 Dose: 5 mg Vital Signs - 8 hr 0305/27/17 05/27/17 08:00 09:09 11:23 Temperature 98.3 F 97.9 F Pulse Rate 63 73 Respiratory 16 18 20 Rate Blood Pressure 127/67 146/79 (mmHg) O2 Sat by Pulse 100 100 Oximetry Oxygen Devices in Use Now: None Appearance: NAD Eyes: No Scleral Icterus Ears/Nose/Mouth/Throat: Clear Oropharnyx Neck: Trachea Midline Respiratory: Symmetrical Chest Expansion and Respiratory Effort Abdominal: No Hepatosplenomegaly Lymphatic: No Cervical Adenopathy Extremities: No Edema, No Clubbing, Cyanosis Skin: No Rash or Ulcers Neurological: Alert and Oriented x 3 Lines/Tubes/Other Access: Clean, Dry and Intact Peripheral IV Result Diagrams: 05/26/17 06:30 05/26/17 06:30 Microbiology and Other Data: Microbiology 05/25/17 14:00 Nasal Screen MRSA (PCR)(PIERRE) - Final Nasal Mrsa Not Detected Diagnostic Imaging: Brain CT (05/25): No IC hemorrhage or other abnl process identified CTA Chest/A/P: - no PE - no dissection - + thyroid nodules -- (patient to have outpatient thyroid ultrasound) Assess/Plan/Problems-Billing . Assessment: 61 yo female with h/o takasubo's cardiomyopathy (EF recovering, most recently EF > 40% but TTE pending now), as well as uncontrolled HTN and now with potentially symptomatic bradycardia (dizziness, LH) Admitted for ICU monitoring with HR in 30's. --> later transferred to floor. Off AVN agents; controlling HTN with other agents Stress test saturday05/26/17 was interpreted as LOW RISK for CAD . - Patient Problems (1) Symptomatic bradycardia Current Visit: Yes Status: Acute Priority: High Code(s): R00.1 - BRADYCARDIA, UNSPECIFIED Comment: - Continue to hold any AVN-active agents (i.e. BB) - Cardiology consult appreciated: stress test on 05/27/17 was LOW RISK - troponins have been negative; BP controlled - electrolytes repleted (2) Multiple thyroid nodules Current Visit: Yes Status: Acute Priority: High Code(s): E04.2 - NONTOXIC MULTINODULAR GOITER Comment: - Will refer to PCP for coordinated thyrooid ultrasound after discharge - TSH normal. (3) Full code status Current Visit: No Status: Acute Code(s): Z78.9 - OTHER SPECIFIED HEALTH STATUS SNOMED Code(s): 548274032 (4) Takotsubo cardiomyopathy Current Visit: No Status: Acute Code(s): I51.81 - TAKOTSUBO SYNDROME SNOMED Code(s): 982498163 Comment: - EF improving, now 40% up from ~ 20-25% (5) Vaginal bleeding Current Visit: No Status: Acute Priority: High Code(s): N93.9 - ABNORMAL UTERINE AND VAGINAL BLEEDING, UNSPECIFIED Comment: - BUILD AND RELEASE MANAGER consult noted from Mar 2017 - Transvaginal US without significant findings at that time - Follow-up with BUILD AND RELEASE MANAGER outpatient. - Not significantly (modestly) anemic (6) HTN (hypertension) Current Visit: No Status: Chronic Priority: High Code(s): I10 - ESSENTIAL (PRIMARY) HYPERTENSION Comment: - stage II-III+ HTN - On norvasc / losartan - 61 yo ==> target SBP < 140 (7) History of lung cancer Current Visit: No Status: Chronic Priority: High Code(s): Z85.118 - PERSONAL HISTORY OF MALIGNANT NEOPLASM OF BRONCHUS AND LUNG Comment: - S/P resection on the right (8) DVT prophylaxis Current Visit: No Status: Acute Code(s): PHO7610 - SNOMED Code(s): 788842768 Comment: - On ASA; holding AC given vaginal bleeding. Status and Disposition: DISPOSITION: Likely dc tomorrow AM
[2017-05-28] MEDS: Omeprazole CAP* 20 MG PO SCH (05:49)
[2017-05-28] MEDS: Heparin VIAL(*) 5000 UNITS/ML VIAL (FIVE THOUSAND) SUBCUT SCH ×2 (05:49→14:46)
[2017-05-28] MEDS: Aspirin EC Low Dose* 81 MG TAB.EC PO SCH (10:24)
[2017-05-28] MEDS: amLODIPine TAB* 5 MG PO SCH (10:45)
[2017-05-28] MEDS: Losartan TAB* 25 MG PO SCH (10:45)
[2017-05-28 12:33] VITALS: BP 142/70
== END 2017-05-28 15:50 | disposition home or self-care (01) | DRG 201 ==
LOC: ED 08:21 → ICU 12:49 → MEDTELE 05-26 15:45
PROVIDERS: ADMIT Internal Medicine; ATTEND Internal Medicine
DX: R00.1 Bradycardia, unspecified (principal); I51.81 Takotsubo syndrome; E04.2 Nontoxic multinodular goiter; N93.9 Abnormal uterine and vaginal bleeding, unspecified; M06.9 Rheumatoid arthritis, unspecified; I25.10 Atherosclerotic heart disease of native coronary artery without angina pectoris; I44.1 Atrioventricular block, second degree; E87.6 Hypokalemia; K25.9 Gastric ulcer, unspecified as acute or chronic, without hemorrhage or perforation; G89.29 Other chronic pain; M54.5 Low back pain; G43.909 Migraine, unspecified, not intractable, without status migrainosus; Z85.118 Personal history of other malignant neoplasm of bronchus and lung; Z79.891 Long term (current) use of opiate analgesic; Z79.899 Other long term (current) drug therapy; Z88.6 Allergy status to analgesic agent; Z88.8 Allergy status to other drugs, medicaments and biological substances; Z80.3 Family history of malignant neoplasm of breast; Z80.0 Family history of malignant neoplasm of digestive organs; Z87.891 Personal history of nicotine dependence
CPT/HCPCS: 36415; 70450; 71045; 71275; 74174; 78452; 80048; 80053; 83605; 84439; 84443; 84484; 85025; 85060; 85379; 87641; 93005; 93017; 99285; A9270-GY; A9502; J1644; Q9967

== ENCOUNTER 2017-09-19 07:28 | Emergency (ER) | payer OTHER ==
--- NOTE | 2017-09-19 07:50 | ED ---
HPI Chest Pain - HPI Summary HPI Summary: This is carlo Syed documenting for attending Dr. Neto M.D. Pt is a 62 y/o F w/ c/o chest pain onsetting one day ago. She woke up yesterday morning and states she felt chest pain at left anterior chest. Pt believed pain was heart burn but pain has worsened since onset. On triage, movement, palpation, and coughing are noted to worsen pain and pain is rated 7/10. In the room, pain is described as sharp and deep breaths are noted to worsen pain. Pt also reports a productive cough which brings white phlegm. She reports two heart attacks, one in March, and one in April of this year. Pt states she is unsure if she has stents. Pt has no Hx of blood clots in legs or lungs. She has Hx of lung cancer, HTN, but denies diabetes. She states she does not take aspirin but is on blood medications. Pt denies any recent heavy lifting. - History of Current Complaint Chief Complaint: EDChestWallPain Time Seen by Provider: 09/19/17 07:42 Hx Obtained From: Patient Onset/Duration: Started Days Ago - onset one day ago in the morning Initial Severity: Moderate Current Severity: Severe Pain Intensity: 7 Pain Scale Used: 0-10 Numeric - 7/10 Chest Pain Location: Left Anterior Chest Pain Radiates: No Character: Sharp/Stabbing Aggravating Factor(s): Movement, Deep Breaths, Other: - coughing, palpations Alleviating Factor(s): Nothing Associated Signs and Symptoms: Positive: Productive Cough - white phelgm produced - Additional Pertinent History Primary Care Physician: CIERRA - Allergy/Home Medications Allergies/Adverse Reactions: Allergies Allergy/AdvReac Type Severity Reaction Status Date / Time naproxen Allergy Unknown Verified 09/19/17 07:45 Reaction Details NSAIDS (Non-Steroidal Allergy GI Upset Verified 09/19/17 07:53 Anti-Inflamma Home Medications: Home Medications amLODIPine TAB* [Norvasc 5 mg TAB*] 5 mg PO DAILY 09/19/17 [History Confirmed ] PMH/Surg Hx/FS Hx/Imm Hx Endocrine/Hematology History: Reports: Hx Anemia Denies: Hx Diabetes, Hx Sickle Cell Disease, Hx Thyroid Disease Cardiovascular History: Reports: Hx Angina, Hx Hypertension - NO MEDS Denies: Hx Congestive Heart Failure, Hx Peripheral Vascular Disease, Other Cardiovascular Problems/Disorders Respiratory History: Reports: Hx Asthma, Hx Lung Cancer Denies: Other Respiratory Problems/Disorders GI History: Reports: Hx Gastroesophageal Reflux Disease, Hx Ulcer, Other GI Disorders - CONSTPATION History: Reports: Hx Kidney Stones - CURRENTLY, Denies: Hx Renal Disease, Other Problems/Disorders Musculoskeletal History: Reports: Hx Arthritis - SHOULDERS, ARMS, HANDS, Hx Back Problems - pain Denies: Hx Osteoporosis, Other Musculoskeletal History Sensory History: Reports: Hx Cataracts Denies: Hx Contacts or Glasses, Hx Hearing Aid Opthamlomology History: Reports: Hx Cataracts Denies: Hx Contacts or Glasses Neurological History: Reports: Hx Headaches, Hx Migraine Denies: Hx Seizures, Hx Transient Ischemic Attacks (TIA), Other Neuro Impairments/Disorders - Cancer History Cancer Type, Location and Year: lung - Surgical History Surgery Procedure, Year, and Place: tubal ligation, 1979, [facility], RT LOBECTOMY Hx Anesthesia Reactions: No - Immunization History Date of Influenza Vaccine: 03/2017 Infectious Disease History: No Infectious Disease History: Denies: Traveled Outside the [place] in Last 30 Days - Family History Known Family History: Negative: Renal Disease, Respiratory Disease, Seizure Disorder, Blood Disorder - Social History Alcohol Use: None Substance Use Type: Reports: None Smoking Status (MU): Former Smoker Type: Cigarettes Amount Used/How Often: AT MOST Have You Smoked in the Last Year: Yes Review of Systems Positive: Chest Pain - left anterior Positive: Cough - productive, white phlegm All Other Systems Reviewed And Are Negative: Yes Physical Exam - Summary Physical Exam Summary: GENERAL: Patient is a well developed and nourished female who is lying comfortable in the stretcher. Patient is not in any acute respiratory distress. HEAD AND FACE: Normocephalic EYES: PERRLA, EOMI x 2. EARS: Hearing grossly intact. MOUTH: Oropharynx within normal limits. NECK: Supple, trachea is midline, no adenopathy, no JVD, no carotid bruit. CHEST: Symmetric, tenderness at palpation left anterior chest LUNGS: Clear to auscultation bilaterally. No wheezing or crackles. CVS: Regular rate and rhythm, S1 and S2 present, no murmurs or gallops appreciated. ABDOMEN: Soft, non-tender. Bowel sounds are normal. No abdominal abnormal pulsations. EXTREMITIES: Full ROM in all major joints, no edema, no cyanosis or clubbing. NEURO: Alert and oriented x 3. No acute neurological deficits. Speech is normal and follows commands. SKIN: Dry and warm Triage Information Reviewed: Yes Vital Signs On Initial Exam: Initial Vitals Temp Pulse Resp BP Pulse Ox 97.8 F 74 18 133/67 100 09/19/17 07:31 09/19/17 07:31 09/19/17 07:31 09/19/17 07:31 09/19/17 07:31 Vital Signs Reviewed: Yes Diagnostics - Vital Signs Vital Signs Temp Pulse Resp BP Pulse Ox 09/19/17 07:31 97.8 F 74 18 133/67 100 - Laboratory Result Diagrams: 09/19/17 08:14 09/19/17 08:14 Lab Statement: Any lab studies that have been ordered have been reviewed, and results considered in the medical decision making process. - Radiology CXR Xray Interpretation: No Acute Changes Radiology Interpretation Completed By: Radiologist - No active cardiopulmonary disease. This report was reviewed by ED physician. - CT CTA Chest CT Interpretation Completed By: Radiologist - 1. NO PULMONARY ARTERIAL FILLING DEFECT TO SUGGEST PULMONARY EMBOLISM. 2. THERE ARE BORDERLINE ENLARGED BILATERAL AXILLARY LYMPH NODES. 3. STABLE MILD ECTASIA OF THE THORACIC AORTA. 4. ATHEROSCLEROSIS. 5. EMPHYSEMA. 6. AGAIN NOTED IS A HETEROGENEOUSLY ENLARGED THYROID CORRESPONDING TO THE MULTINODULAR. THIS REPORT WAS REVIEWED BY ED PHYSICIAN. - EKG 0739 Cardiac Rate: NL - Rate of 68 BPM EKG Rhythm: Sinus Rhythm EKG Interpretation: R interval is short, LVH, abnormal R-wave progression 0845 EKG Interpretation: 2nd degree heart block, type 1 0832 Cardiac Rate: Bradycardia - Rate of EKG Rhythm: Sinus Bradycardia EKG Interpretation: Mobitz type 1 0856 Cardiac Rate: Bradycardia - Rate of 33 BPM EKG Rhythm: Sinus Bradycardia EKG Interpretation: Mobitz type 1 Re-Evaluation - Re-Evaluation First Eval Re-Evaluation Time: 12:47 Change: Improved Comment: Pt reports chest pain is gone. Discussed test results and PMHx. Pt was informed her troponin needed to be checked one more time. Chest Pain Course/Dx - Course Course Of Treatment: Pt is a 62 y/o F w/ c/o chest pain onsetting one day ago. She woke up yesterday morning and states she felt chest pain at left anterior chest. Pt believed pain was heart burn but pain has worsened since onset. On triage, movement, palpation, and coughing are noted to worsen pain and pain is rated 7/10. In the room, pain is described as sharp and deep breaths are noted to worsen pain. Pt also reports a productive cough which brings white phlegm. She reports two heart attacks, one in March, and one in April of this year. Pt states she is unsure if she has stents. Pt has no Hx of blood clots in legs or lungs. She has Hx of lung cancer, HTN, but denies diabetes. She states she does not take aspirin but is on blood medications. Pt denies any recent heavy lifting. During ED course, ketorolac INJ 30 mg IV PUSH once was provided. CXR and CTA chest were ordered, impressions above. Three separate EKGs were taken over the course of ED stay, with findings above. Dr. Ramos, who is familiar with the patient was consulted. He notes Pt has a known Hx of 2nd degree heart block type 1 his recommendation was to trend her troponin in the ED and send home if remains negative. Troponin levels were not concerning. By 12 :47, Pts pain had resolved and she was discharged to home with a diagnosis of chest pain which was most likely musculoskeletal given reproducible on exam. Patient is completely asymtomatic of her bradycardia. Patient can be safely discharge home with strict return precautions. She will follow up with cardiaology. - Diagnoses Provider Diagnoses: Chest pain - Provider Notifications Discussed Care Of Patient With: Erlin Ramos Time Discussed With Above Provider: 08:47 Instructed by Provider To: Other - Dr. Ramos was consulted w/ regards to Pt's 2nd EKG. Dr. Ramos reports being familiar with the patient and notes she has a Hx of Wenckebach. Discharge - Sign-Out/Discharge Documenting (check all that apply): Patient Departure - discharge - Discharge Plan Condition: Stable Disposition: HOME Patient Education Materials: Chest Pain (ED) Referrals: Subhash Monroe MD [Primary Care Provider] - 2 Days Erlin Ramos DO [Medical Doctor] - 2 Days Additional Instructions: Return to ED for any new or worsening symptoms. - Billing Disposition and Condition Condition: STABLE Disposition: Home
--- NOTE | 2017-09-19 08:07 | RAD ---
HISTORY: chest pain COMPARISONS: May 25, 2017 VIEWS: 1: frontal portable view of the chest at 7:55 AM FINDINGS: LINES AND TUBES: None. CARDIOMEDIASTINAL SILHOUETTE: The cardiomediastinal silhouette is stable. PLEURA: The costophrenic angles are sharp. No pleural abnormalities are noted. LUNG PARENCHYMA: The lungs are clear. ABDOMEN: The upper abdomen is clear. There is no subphrenic gas. BONES AND SOFT TISSUES: No bone or soft tissue abnormalities are noted. IMPRESSION: NO ACTIVE CARDIOPULMONARY DISEASE.
[2017-09-19 08:24] LABS: ABS Basophils 0 10^3/ul (0-0.2); ABS Eosinophils 0.1 10^3/ul (0-0.6); ABS Lymphocytes 1.7 10^3/ul (1.0-4.8); ABS Monocytes 0.2 10^3/ul (0-0.8); ABS Neutrophils 1.6 10^3/ul (1.5-7.7); ABS Nucleated RBC 0 10^3/ul; Eosinophil % 1.4 % (0-6); Hematocrit 33 % (35-47); Hemoglobin 10.8 g/dl (12.0-16.0); Lymphocyte % 48.3 % (25-47); Mean Corpuscular HGB Conc 32 g/dl (31-36); Mean Corpuscular Hemoglobin 28 pg (27-31); Mean Corpuscular Volume 87 fL (80-97); Mean Platelet Volume 8.3 um3 (7.4-10.4); Nucleated Red Blood Cells % 0.3; Platelet Count 257 10^3/ul (150-450); Red Blood Count 3.82 10^6/ul (4.00-5.40); Red Cell Distribution Width 14 % (10.5-15); White Blood Count 3.6 10^3/ul (3.5-10.8)
[2017-09-19] MEDS ORDERED: Morphine VIAL* 4 MG/ML VIAL (1 ml vial) IV ONE (08:28)
[2017-09-19 08:32] LABS: INR 0.92 (0.77-1.02)
[2017-09-19 09:02] LABS: Urine Appearance Clear; Urine Blood Negative (Negative); Urine Color Straw; Urine Ketones Negative (Negative); Urine Protein Negative (Negative); Urine Specific Gravity 1.006 (1.010-1.030); Urine Urobilinogen Negative (Negative)
[2017-09-19] MEDS ORDERED: Iohexol 350* (CONTRAST) 500 ML MDV IV ONE (09:20)
--- NOTE | 2017-09-19 10:53 | RAD ---
HISTORY: eval for PE, chest pain COMPARISONS: May 25, 2017 TECHNIQUE: Multiple contiguous axial CT scans of the chest were obtained after the administration of nonionic intravenous contrast, timed to the pulmonary arterial phase of contrast enhancement.. Coronal and sagittal multiplanar reformations are also submitted for review. FINDINGS: NECK AND THYROID: The thyroid gland is heterogeneously enlarged. CHEST WALL: There are bilateral axillary lymph nodes measuring up to 1 cm in size. There has been slight progression compared to the previous examination. HEART AND PERICARDIUM: The heart is unremarkable. AORTA AND PULMONARY VASCULATURE: There is no pulmonary arterial filling defect to suggest pulmonary embolism. Evaluation of aortic dissection is limited due to the phase of contrast administration.. There is atherosclerosis of the thoracic aorta. There is stable ectasia of ascending thoracic aorta. MEDIASTINUM: There are subcentimeter short axis prevascular lymph nodes. There is no mediastinal adenopathy by size criteria. SEDRICK: There are subcentimeter short axis hilar lymph nodes. There is no hilar lymphadenopathy by size criteria. AIRWAY AND ESOPHAGUS: The airway is unremarkable, without endobronchial filling defect. The esophagus is grossly normal. LUNG PARENCHYMA: There is centrilobular emphysematous change with bullous disease with an apical predominance. PLEURA: No pleural abnormalities are noted. UPPER ABDOMEN: There are stable low-attenuation lesions of the liver. BONES AND SOFT TISSUES: No bone or soft tissue abnormalities are noted. OTHER: None. IMPRESSION: 1. NO PULMONARY ARTERIAL FILLING DEFECT TO SUGGEST PULMONARY EMBOLISM. 2. THERE ARE BORDERLINE ENLARGED BILATERAL AXILLARY LYMPH NODES. 3. STABLE MILD ECTASIA OF THE THORACIC AORTA. 4. ATHEROSCLEROSIS. 5. EMPHYSEMA. 6. AGAIN NOTED IS A HETEROGENEOUSLY ENLARGED THYROID CORRESPONDING TO THE MULTINODULAR GOITER NOTED ON THE PREVIOUS CT EXAMINATION.
[2017-09-19] MEDS ORDERED: Ketorolac INJ* 30 MG/ML 1 ML VIAL IV PUSH ONE (11:30)
[2017-09-19 13:35] VITALS: BP 162/93
== END 2017-09-19 13:34 | disposition home or self-care (01) ==
LOC: ED 07:28
DX: R07.9 Chest pain, unspecified (principal); I44.1 Atrioventricular block, second degree; R00.1 Bradycardia, unspecified; I10 Essential (primary) hypertension; I25.2 Old myocardial infarction; I77.810 Thoracic aortic ectasia; J43.2 Centrilobular emphysema; K76.9 Liver disease, unspecified; Z85.118 Personal history of other malignant neoplasm of bronchus and lung; Z90.2 Acquired absence of lung [part of]; Z87.442 Personal history of urinary calculi; Z87.891 Personal history of nicotine dependence; Z88.6 Allergy status to analgesic agent
CPT/HCPCS: 36415; 71045; 71275; 80053; 81003; 83605; 84439; 84443; 84484; 85025; 85379; 85610; 85730; 93005; 96374; 96375; 99285; J2270; Q9967